=== PATIENT | female | born 1955 ===

== ENCOUNTER 2016-09-03 18:33 | Inpatient (IN) | payer MEDICAID ==
[2016-09-03] MEDS ORDERED: Metoprolol 1 mg/ml Inj IVP STA (19:34)
[2016-09-03 19:46] LABS: ADD MANUAL DIFF? NO
[2016-09-03 19:51] LABS: BASO # 0.06 K/mm3 (0.0-2.0); BASO % 0.6 % (0.0-3.0); EOS # 0.1 (0.0-0.7); EOS % 1.3 % (1.5-5.0); GRAN # 7.47 (1.4-6.5); GRAN % 76.4 % (50.0-68.0); HEMATOCRIT 36.3 % (36.0-48.0); LYMPH # 1.8 (1.2-3.4); LYMPH % 18.1 % (22.0-35.0); MEAN CORPUSCULAR HEMOGLOBIN 27.1 pg (25.0-35.0); MEAN CORPUSCULAR HGB CONC 32.2 g/dl (31.0-37.0); MEAN PLATELET VOLUME 11.2 fl (7.0-11.0); MONO # 0.4 (0.1-0.6); MONO % 3.6 % (1.0-6.0); PLATELET COUNT 262 10^3/uL (120.0-450.0); RED CELL DISTRIBUTION WIDTH 13.6 % (11.5-14.5); WHITE BLOOD COUNT 9.8 10^3/ul (4.5-11.0)
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
[2016-09-03 20:02] LABS: ALB/GLOB RATIO 1.2 (1.1-1.8); ALKALINE PHOSPHATASE 121 U/L (38-133); ALT/SGPT 16 U/L (7-56); AST/SGOT 25 U/L (15-39); BILIRUBIN,TOTAL 0.6 mg/dL (0.2-1.3); BLOOD UREA NITROGEN 21 mg/dL (7-21); CALCIUM 9.7 mg/dL (8.4-10.5); CARBON DIOXIDE 24 mmol/L (21-33); CHLORIDE 102 mmol/L (98-107); GFR AFRICAN-AMERICAN > 60; GLUCOSE,RANDOM 207 mg/dL (70-110); POTASSIUM 4.5 mmol/L (3.6-5.0); SODIUM 139 mmol/L (132-148); TOTAL PROTEIN 7.4 g/dL (5.8-8.3)
[2016-09-03 20:03] LABS: INR 0.98 (0.93-1.08); PARTIAL THROMBOPLASTIN TIME 26.1 Seconds (23.7-30.8)
[2016-09-03 20:14] LABS: TROPONIN I < 0.01 ng/mL
[2016-09-03 21:31] LABS: URINE APPEARANCE CLEAR (CLEAR); URINE BILIRUBIN NEGATIVE (NEGATIVE); URINE BLOOD SMALL (NEGATIVE); URINE COLOR YELLOW (YELLOW); URINE GLUCOSE (UA) NEGATIVE (NEGATIVE); URINE KETONE NEGATIVE (NEGATIVE); URINE LEUKOCYTE ESTERASE NEGATIVE Leu/uL (NEGATIVE); URINE PROTEIN 100 mg/dL (<30 mg/dL); URINE UROBILINOGEN 0.2 E.U./dL (<1 E.U./dL)
[2016-09-03 21:35] LABS: URINE AMORPHOUS SEDIMENT FEW; URINE BACTERIA MANY (NEG); URINE WBC 0 - 2 /hpf (0-6)
[2016-09-03] MEDS ORDERED: cefTRIAXone 1 gm 100 ML IV STA (21:51)
--- NOTE | 2016-09-03 22:15 | CT ---
EXAM: CT Head Without Intravenous Contrast. CLINICAL HISTORY: 61 years old, female; Pain; Headache; Headache not specified; Additional info: [place] x2 weeks TECHNIQUE: Axial computed tomography images of the head/brain without intravenous contrast. This CT exam was performed using one or more of the following dose reduction techniques: automated exposure control, adjustment of the mA and/or kV according to patient size, and/or use of iterative reconstruction technique. COMPARISON: CT - HEAD W/O (CODE STROKE) 08/08/2016 4:29:03 PM FINDINGS: Brain: No hemorrhage. No edema. Bilateral white matter changes. This is nonspecific and may include microangiopathic disease, small lacunae of indeterminate chronicity, chronic infarcts and/or encephalomalacia. Evidence of old lacunar infarcts, similar appearance to available prior study. Vascular calcification. Ventricles: No hydrocephalus. Bones: Skull is intact. Deformity of left lamina papyracea, likely from prior trauma. Sinuses: No acute sinusitis. Mastoid air cells: No mastoid effusion. IMPRESSION: No CT evidence of acute intracranial abnormality. Details as above. Correlate clinically. Followup as warranted.
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
[2016-09-04] MEDS ORDERED: Albuterol 0.083% Inhal Sol (2.5 mg/3 mL) UD IH PRN (01:34)
[2016-09-04] MEDS ORDERED: Albuterol-Ipratrop 3 mg / 0.5 (3 ml) UD IH PRN (02:21)
[2016-09-04 03:33] VITALS: BMI 32.9
[2016-09-04 06:49] LABS: ADD MANUAL DIFF? NO
[2016-09-04 07:13] LABS: BASO # 0.08 K/mm3 (0.0-2.0); BASO % 0.9 % (0.0-3.0); EOS # 0.4 (0.0-0.7); EOS % 3.9 % (1.5-5.0); GRAN # 5.85 (1.4-6.5); GRAN % 62.5 % (50.0-68.0); HEMATOCRIT 35.2 % (36.0-48.0); LYMPH # 2.6 (1.2-3.4); LYMPH % 27.5 % (22.0-35.0); MEAN CORPUSCULAR HGB CONC 32.1 g/dl (31.0-37.0); MEAN PLATELET VOLUME 9.9 fl (7.0-11.0); MONO # 0.5 (0.1-0.6); MONO % 5.2 % (1.0-6.0); PLATELET COUNT 297 10^3/uL (120.0-450.0); RED CELL DISTRIBUTION WIDTH 13.8 % (11.5-14.5); WHITE BLOOD COUNT 9.4 10^3/ul (4.5-11.0)
[2016-09-04] MEDS: Pantoprazole 40 mg EC Tab PO SCH (07:16)
[2016-09-04 07:26] LABS: TROPONIN I 0.02 ng/mL
[2016-09-04 07:28] LABS: ALB/GLOB RATIO 1.3 (1.1-1.8); ALKALINE PHOSPHATASE 108 U/L (38-133); ALT/SGPT 15 U/L (7-56); AST/SGOT 26 U/L (15-39); BILIRUBIN,TOTAL 0.5 mg/dL (0.2-1.3); BLOOD UREA NITROGEN 18 mg/dL (7-21); CALCIUM 9.4 mg/dL (8.4-10.5); CARBON DIOXIDE 27 mmol/L (21-33); CHLORIDE 104 mmol/L (98-107); CHOLESTEROL 160 mg/dL (130-200); GFR AFRICAN-AMERICAN > 60; GLUCOSE,RANDOM 173 mg/dL (70-110); POTASSIUM 4.4 mmol/L (3.6-5.0); SODIUM 141 mmol/L (132-148); TOTAL PROTEIN 6.8 g/dL (5.8-8.3)
[2016-09-04] MEDS: Insulin Lispro (humaLOG) LOW Coverage SC SCH ×4 (08:16→22:22)
[2016-09-04] MEDS: Insulin Lispro 1 UNITS/0.01 ML SC SCH ×3 (08:19→18:11)
--- NOTE | 2016-09-04 09:02 | CP.PCM.PN ---
<Yann Prakash - Last Filed: 09/04/16 21:36> Subjective - Date & Time of Evaluation Date of Evaluation: 09/04/16 Time of Evaluation: 07:35 - Subjective Subjective: 61 yo female with hx of a stroke presented to the ED. Per family, approximately 3 weeks ago pt had a stroke. She was released from rehab today, presented at home with unsteady gait, difficulty walking, not speaking and altered mental status. Today, patient is in NAD. A review of symtpoms was unobtainable due to pt's altered mental status. Objective - Vital Signs/Intake and Output Vital Signs (last 24 hours): Temp Pulse Resp BP Pulse Ox 97.8 F 93 H 20 183/92 H 98 09/04/16 02:20 09/04/16 06:00 09/04/16 02:20 09/04/16 02:20 09/04/16 01:50 Intake and Output: 09/04/16 09/04/16 06:59 18:59 Intake Total 0 Output Total 300 Balance -300 - Medications Medications: Current Medications Albuterol/Ipratropium (Duoneb 3 Mg/0.5 Mg (3 Ml) Ud) 3 ml IH [id number] PRN PRN Reason: Shortness of Breath Amitriptyline HCl (Elavil) 50 mg PO HS [facility] Amlodipine Besylate (Norvasc) 10 mg PO DAILY [facility] Aspirin (Ecotrin) 81 mg PO DAILY [facility] Atorvastatin Calcium (Lipitor) 40 mg PO DIN [facility] Enoxaparin Sodium (Lovenox) 40 mg SC DAILY [facility] PRN Reason: Protocol Gabapentin (Neurontin) 100 mg PO TID [facility] PRN Reason: Protocol Hydralazine HCl (Apresoline) 10 mg IVP Q6 PRN PRN Reason: Systolic Blood Pressure Last Admin: 09/04/16 01:33 Dose: 10 mg Ceftriaxone Sodium (Rocephin 1 Gram Ivpb) 100 mls @ 100 mls/hr IVPB DAILY [facility] PRN Reason: Protocol Insulin Detemir (Levemir) 34 unit SC HS [facility] Insulin Human Lispro (Humalog Low) 0 units SC ACHS [facility] PRN Reason: Protocol Last Admin: 09/04/16 08:16 Dose: 1 units Insulin Human Lispro (Humalog) 10 units SC AC [facility] Last Admin: 09/04/16 08:19 Dose: Not Given Lisinopril (Zestril) 20 mg PO DAILY [facility] Metoprolol Tartrate (Lopressor) 75 mg PO BID [facility] Ondansetron HCl (Zofran Odt) 4 mg PO Q8 PRN PRN Reason: Nausea/Vomiting Pantoprazole Sodium (Protonix Ec Tab) 40 mg PO 0630 [facility] Last Admin: 09/04/16 07:16 Dose: 40 mg Polyethylene Glycol (Miralax) 17 gm PO DAILY [facility] - Labs Labs: 09/04/16 06:15 09/04/16 06:15 PT 10.6 Seconds (9.9-11.8) 09/03/16 19:25 INR 0.98 (0.93-1.08) 09/03/16 19:25 APTT 26.1 Seconds (23.7-30.8) 09/03/16 19:25 - Constitutional Appears: Non-toxic, No Acute Distress - Head Exam Head Exam: ATRAUMATIC, NORMOCEPHALIC - Eye Exam Eye Exam: EOMI - ENT Exam ENT Exam: Mucous Membranes Moist - Neck Exam Neck Exam: Normal Inspection - Respiratory Exam Respiratory Exam: Clear to Ausculation Bilateral, NORMAL BREATHING PATTERN - Cardiovascular Exam Cardiovascular Exam: REGULAR RHYTHM, +S1, +S2. absent: JVD - GI/Abdominal Exam GI & Abdominal Exam: Soft, Normal Bowel Sounds. absent: Tenderness - Extremities Exam Extremities Exam: Full ROM. absent: Joint Swelling, Tenderness - Neurological Exam Neurological Exam: Alert, Awake, Oriented x3 - Psychiatric Exam Psychiatric exam: Normal Affect, Normal Mood - Skin Skin Exam: Dry, Intact, Normal Color, Warm Assessment and Plan - Assessment and Plan (Free Text) Assessment: This is a 60 y/o female with hx of poorly controlled IDDM, peripheral neuropathy , HTN, HLD, prior CVA with residual right LE weakness and a recent stroke 3 weeks ago, with unsteady gait, difficulty walking, not speaking and altered mental status. Plan: AMS likely HTN encephalopathy, unlikely TIA or stroke. Possible delirum precipitated by UTI - r/o Ischemic - trend cardiac enzyme Trops x3 negative - r/o Infectious- UTI - ceftriaxone - Iatrogenic -vno hypoglycemia or electrolyte imbalance HTN - uncontrolled, labile - Norvasc 10 daily - increased lopressor to 75mg BID - lisinopril 20 daily - Hydralazine q6 PRN - added Clonidine .1mg q6 prn - Systolic BP dropped from admission from 190's to 160's - will continue to adjust meds to optimize pressures IDDM poor control - Levemr 34 HS - 10 humalog TID - ISSS , peripheral neuropathy, a1c 12.6 (Jul 2016) - sugars 187 - 207 Diabetic neuropathy - neurontin 100 tid History of Falls - Deconditioning vs HTN encephalopathy vs orthostatic hypotention - orthostatic vitals ordered - physical therapy consult ordered - Hip x ray - no acute fracture or dislocation, see full report - CT face to r/o fracture - no acute nasal bone or maxillofacial fracture, see full report - CT Head -No CT evidence of acute intracranial abnormality, evidence of old lacunar infarcts, see full report Depression - psych consult - ordered - newly started on amitriptyline. HLD hx CVA w/ right LE residual deficit & aphasia; Last stroke 3 weeks ago - ASA, lipitor 40 Constipation - miralax Prophylaxis - protonix, lovenox, zofran <Rangasamy,Ajantha - Last Filed: 09/05/16 11:39> Objective - Vital Signs/Intake and Output Vital Signs (last 24 hours): Temp Pulse Resp BP Pulse Ox 98.2 F 67 18 143/62 98 09/05/16 06:00 09/05/16 09:12 09/05/16 06:00 09/05/16 06:00 09/05/16 06:00 Intake and Output: 09/05/16 09/05/16 06:59 18:59 Intake Total 480 Output Total 600 Balance -120 - Medications Medications: Current Medications Albuterol/Ipratropium (Duoneb 3 Mg/0.5 Mg (3 Ml) Ud) 3 ml IH [id number] PRN PRN Reason: Shortness of Breath Amitriptyline HCl (Elavil) 50 mg PO HS [facility] Last Admin: 09/04/16 21:28 Dose: 50 mg Amlodipine Besylate (Norvasc) 10 mg PO DAILY [facility] Last Admin: 09/05/16 10:29 Dose: 10 mg Aspirin (Ecotrin) 81 mg PO DAILY [facility] Last Admin: 09/05/16 10:28 Dose: 81 mg Atorvastatin Calcium (Lipitor) 40 mg PO DIN [facility] Last Admin: 09/04/16 18:15 Dose: 40 mg Clonidine HCl (Catapres) 0.1 mg PO Q6 PRN PRN Reason: Systolic Blood Pressure Last Admin: 09/04/16 21:29 Dose: 0.1 mg Enoxaparin Sodium (Lovenox) 40 mg SC DAILY [facility] PRN Reason: Protocol Last Admin: 09/05/16 10:29 Dose: 40 mg Gabapentin (Neurontin) 100 mg PO TID [facility] PRN Reason: Protocol Last Admin: 09/05/16 10:29 Dose: 100 mg Hydralazine HCl (Apresoline) 10 mg IVP Q6 PRN PRN Reason: Systolic Blood Pressure Last Admin: 09/04/16 01:33 Dose: 10 mg Ceftriaxone Sodium (Rocephin 1 Gram Ivpb) 100 mls @ 100 mls/hr IVPB DAILY [facility] PRN Reason: Protocol Last Admin: 09/05/16 10:29 Dose: 100 mls/hr Insulin Detemir (Levemir) 34 unit SC HS [facility] Last Admin: 09/04/16 22:23 Dose: Not Given Insulin Human Lispro (Humalog Low) 0 units SC ACHS [facility] PRN Reason: Protocol Last Admin: 09/05/16 07:50 Dose: 1 units Insulin Human Lispro (Humalog) 10 units SC AC [facility] Last Admin: 09/05/16 07:47 Dose: Not Given Lisinopril (Zestril) 20 mg PO DAILY [facility] Last Admin: 09/05/16 10:30 Dose: 20 mg Metoprolol Tartrate (Lopressor) 75 mg PO BID [facility] Last Admin: 09/05/16 10:28 Dose: 75 mg Ondansetron HCl (Zofran Odt) 4 mg PO Q8 PRN PRN Reason: Nausea/Vomiting Pantoprazole Sodium (Protonix Ec Tab) 40 mg PO 0630 [facility] Last Admin: 09/05/16 05:39 Dose: 40 mg Polyethylene Glycol (Miralax) 17 gm PO DAILY [facility] Last Admin: 09/05/16 10:29 Dose: 17 gm - Labs Labs: 09/05/16 06:10 09/05/16 06:10 PT 10.6 Seconds (9.9-11.8) 09/03/16 19:25 INR 0.98 (0.93-1.08) 09/03/16 19:25 APTT 26.1 Seconds (23.7-30.8) 09/03/16 19:25 Assessment and Plan - Assessment and Plan (Free Text) Assessment: Attending note; Patient seen and examined with resident in room 263. This is a 60 y/o female with the PMH of poorly controlled IDDM, peripheral neuropathy, HTN, HLD, prior CVA with residual right LE weakness is admitted with unsteady gait, difficulty walking, not speaking and altered mental status. The patient was discharged from [facility]. When patient went home she became unsteady/stopped talking and had a fall as per family. Currently patient is alert, awake. Communicating fine. Flat affect. Tolerating diet. Uncontrolled hypertension; patient said she did not take any medication at home. Started on medications. Blood pressure is stable. Diabetes; continue Levemir. Possible depression; psychiatric evaluation requested. Continue Elavil. PT evaluation requested. Upon discharge patient will follow-up with PMD Dr. Hernandez. Attending/Attestation - Attestation I have personally seen and examined this patient.: Yes I have fully participated in the care of the patient.: Yes I have reviewed all pertinent clinical information, including history, physical exam and plan: Yes
--- NOTE | 2016-09-04 09:29 | RAD ---
HISTORY: Shortness of breath COMPARISON: No prior. FINDINGS: LUNGS: The lungs are well inflated and clear. PLEURA: No significant pleural effusion identified, no pneumothorax apparent. CARDIOVASCULAR: Normal. OSSEOUS STRUCTURES: No significant abnormalities. VISUALIZED UPPER ABDOMEN: Normal. OTHER FINDINGS: None. IMPRESSION: No active pulmonary disease.
[2016-09-04 09:37] LABS: TROPONIN I 0.02 ng/mL
--- NOTE | 2016-09-04 10:40 | CT ---
PROCEDURE: CT MAXILLOFACIAL BONES WITHOUT CONTRAST HISTORY: fall, nose bruise COMPARISON: None TECHNIQUE: Contiguous axial CT images of the maxillofacial bones were obtained. Coronal and sagittal reformats were generated. Radiation dose: Total exam DLP = 711.63 mGy-cm. FINDINGS: NASAL BONES: There is no acute fracture. The nasal soft tissues are normal. ORBITS: There is an old fracture deformity in the left lamina papyracea. No acute fracture. PARANASAL SINUSES/ MASTOIDS: There is a small retention cyst/ polyp in the left maxillary sinus. The remaining included paranasal sinuses are predominantly clear. There are bilateral middle turbinate damaris bullosa and mild deviation of nasal septum to right. MAXILLA: No acute maxillofacial fracture. MANDIBLE/ TEMPOROMANDIBULAR JOINTS: No acute fracture. Normal joints. SKULL BASE: Within normal limits. TEMPORAL BONES: Middle ears and mastoid grossly unremarkable. OTHER FINDINGS: None. IMPRESSION: 1. No acute nasal bone or maxillofacial fracture. 2. Old fracture deformity in the left lamina papyracea.
[2016-09-04] MEDS: POLYETHYLENE GLYCOL 3350 17 GM/Dose PACKET PO SCH (11:33)
[2016-09-04] MEDS: Enoxaparin 40 mg Syringe SC SCH (11:33)
[2016-09-04] MEDS: cefTRIAXone 1 gm 100 ML IVPB SCH (11:33)
--- NOTE | 2016-09-04 12:34 | RAD ---
PROCEDURE: Radiographs of the pelvis. HISTORY: falls COMPARISON: None. FINDINGS: BONES: The pelvic ring is intact. There is no acute fracture or bone destruction. JOINTS: There is moderate right and mild left degenerative osteoarthrosis with reduced joint spaces and acetabular spurring. There is moderate osteitis pubis. There is mild degenerative osteoarthrosis in the sacroiliac joints. OTHER FINDINGS: None. IMPRESSION: No acute fracture or dislocation. Moderate right and mild left degenerative osteoarthrosis in the hip joints. Moderate osteitis pubis.
--- NOTE | 2016-09-04 15:00 | CARD ---
APPROVED REPORT EKG Measurement Heart [id number] <Conclusion> Sinus rhythm with 1st degree AV block Otherwise normal ECG
--- NOTE | 2016-09-04 20:12 | CP.PCM.PN ---
Subjective - Date & Time of Evaluation Date of Evaluation: 09/04/16 Time of Evaluation: 20:12 - Subjective Subjective: # 20 angiocath was inserted in left hand dorsum Dx:Poor venous access. Objective - Vital Signs/Intake and Output Vital Signs (last 24 hours): Temp Pulse Resp BP Pulse Ox 97.3 F L 78 19 157/93 H 98 09/04/16 12:00 09/04/16 18:00 09/04/16 12:00 09/04/16 12:00 09/04/16 01:50 - Medications Medications: Current Medications Albuterol/Ipratropium (Duoneb 3 Mg/0.5 Mg (3 Ml) Ud) 3 ml IH [id number] PRN PRN Reason: Shortness of Breath Amitriptyline HCl (Elavil) 50 mg PO HS [facility] Amlodipine Besylate (Norvasc) 10 mg PO DAILY [facility] Last Admin: 09/04/16 11:32 Dose: 10 mg Aspirin (Ecotrin) 81 mg PO DAILY [facility] Last Admin: 09/04/16 11:33 Dose: 81 mg Atorvastatin Calcium (Lipitor) 40 mg PO DIN [facility] Last Admin: 09/04/16 18:15 Dose: 40 mg Clonidine HCl (Catapres) 0.1 mg PO Q6 PRN PRN Reason: Systolic Blood Pressure Enoxaparin Sodium (Lovenox) 40 mg SC DAILY [facility] PRN Reason: Protocol Last Admin: 09/04/16 11:33 Dose: 40 mg Gabapentin (Neurontin) 100 mg PO TID [facility] PRN Reason: Protocol Last Admin: 09/04/16 18:16 Dose: 100 mg Hydralazine HCl (Apresoline) 10 mg IVP Q6 PRN PRN Reason: Systolic Blood Pressure Last Admin: 09/04/16 01:33 Dose: 10 mg Ceftriaxone Sodium (Rocephin 1 Gram Ivpb) 100 mls @ 100 mls/hr IVPB DAILY [facility] PRN Reason: Protocol Last Admin: 09/04/16 11:33 Dose: 100 mls/hr Insulin Detemir (Levemir) 34 unit SC HS [facility] Insulin Human Lispro (Humalog Low) 0 units SC ACHS [facility] PRN Reason: Protocol Last Admin: 09/04/16 18:15 Dose: 1 units Insulin Human Lispro (Humalog) 10 units SC AC [facility] Last Admin: 09/04/16 18:11 Dose: Not Given Lisinopril (Zestril) 20 mg PO DAILY [facility] Last Admin: 09/04/16 11:31 Dose: 20 mg Metoprolol Tartrate (Lopressor) 75 mg PO BID [facility] Last Admin: 09/04/16 18:15 Dose: 75 mg Ondansetron HCl (Zofran Odt) 4 mg PO Q8 PRN PRN Reason: Nausea/Vomiting Pantoprazole Sodium (Protonix Ec Tab) 40 mg PO 0630 [facility] Last Admin: 09/04/16 07:16 Dose: 40 mg Polyethylene Glycol (Miralax) 17 gm PO DAILY [facility] Last Admin: 09/04/16 11:33 Dose: 17 gm - Labs Labs: PT 10.6 Seconds (9.9-11.8) 09/03/16 19:25 INR 0.98 (0.93-1.08) 09/03/16 19:25 APTT 26.1 Seconds (23.7-30.8) 09/03/16 19:25
[2016-09-04] MEDS: Insulin Detemir 100 units/ml Vial (Levemir) SC SCH (22:23)
[2016-09-05] MEDS: Pantoprazole 40 mg EC Tab PO SCH (05:39)
[2016-09-05 06:38] LABS: ADD MANUAL DIFF? NO
[2016-09-05 06:59] LABS: BASO # 0.07 K/mm3 (0.0-2.0); BASO % 0.8 % (0.0-3.0); EOS # 0.4 (0.0-0.7); EOS % 4.4 % (1.5-5.0); GRAN # 5.46 (1.4-6.5); GRAN % 60.2 % (50.0-68.0); HEMATOCRIT 35.5 % (36.0-48.0); LYMPH # 2.6 (1.2-3.4); LYMPH % 28.5 % (22.0-35.0); MEAN CELL VOLUME 84.7 fL (80.0-105.0); MEAN CORPUSCULAR HGB CONC 31.8 g/dl (31.0-37.0); MEAN PLATELET VOLUME 10.4 fl (7.0-11.0); MONO # 0.6 (0.1-0.6); MONO % 6.1 % (1.0-6.0); PLATELET COUNT 284 10^3/uL (120.0-450.0); RED CELL DISTRIBUTION WIDTH 13.9 % (11.5-14.5); WHITE BLOOD COUNT 9.1 10^3/ul (4.5-11.0)
[2016-09-05 07:04] LABS: ALB/GLOB RATIO 1.2 (1.1-1.8); BILIRUBIN,TOTAL 0.6 mg/dL (0.2-1.3); CALCIUM 9.2 mg/dL (8.4-10.5); POTASSIUM 4.7 mmol/L (3.6-5.0); TOTAL PROTEIN 6.8 g/dL (5.8-8.3)
[2016-09-05] MEDS: Insulin Lispro 1 UNITS/0.01 ML SC SCH ×3 (07:47→18:42)
[2016-09-05] MEDS: Insulin Lispro (humaLOG) LOW Coverage SC SCH ×4 (07:50→22:29)
[2016-09-05] MEDS: cefTRIAXone 1 gm 100 ML IVPB SCH (10:29)
[2016-09-05] MEDS: Enoxaparin 40 mg Syringe SC SCH (10:29)
[2016-09-05] MEDS: POLYETHYLENE GLYCOL 3350 17 GM/Dose PACKET PO SCH (10:29)
--- NOTE | 2016-09-05 16:06 | CP.PCM.PN ---
<Jordan Griffin - Last Filed: 09/05/16 17:28> Subjective - Date & Time of Evaluation Date of Evaluation: 09/05/16 Time of Evaluation: 08:40 - Subjective Subjective: Medicine Progress note. Dr. Bassett Pt seen and examined at bedside. No acute events overnight. Patient states that she feels okay today and feels better than yesterday. No new complaints. Objective - Vital Signs/Intake and Output Vital Signs (last 24 hours): Temp Pulse Resp BP Pulse Ox 98.1 F 69 20 157/76 H 98 09/05/16 12:00 09/05/16 12:00 09/05/16 12:00 09/05/16 12:00 09/05/16 06:00 Intake and Output: 09/05/16 09/05/16 06:59 18:59 Intake Total 480 Output Total 600 Balance -120 - Medications Medications: Current Medications Albuterol/Ipratropium (Duoneb 3 Mg/0.5 Mg (3 Ml) Ud) 3 ml IH [id number] PRN PRN Reason: Shortness of Breath Amitriptyline HCl (Elavil) 50 mg PO HS [facility] Last Admin: 09/04/16 21:28 Dose: 50 mg Amlodipine Besylate (Norvasc) 10 mg PO DAILY [facility] Last Admin: 09/05/16 10:29 Dose: 10 mg Aspirin (Ecotrin) 81 mg PO DAILY [facility] Last Admin: 09/05/16 10:28 Dose: 81 mg Atorvastatin Calcium (Lipitor) 40 mg PO DIN [facility] Last Admin: 09/04/16 18:15 Dose: 40 mg Clonidine HCl (Catapres) 0.1 mg PO Q6 PRN PRN Reason: Systolic Blood Pressure Last Admin: 09/04/16 21:29 Dose: 0.1 mg Enoxaparin Sodium (Lovenox) 40 mg SC DAILY [facility] PRN Reason: Protocol Last Admin: 09/05/16 10:29 Dose: 40 mg Gabapentin (Neurontin) 100 mg PO TID [facility] PRN Reason: Protocol Last Admin: 09/05/16 13:57 Dose: 100 mg Hydralazine HCl (Apresoline) 10 mg IVP Q6 PRN PRN Reason: Systolic Blood Pressure Last Admin: 09/04/16 01:33 Dose: 10 mg Ceftriaxone Sodium (Rocephin 1 Gram Ivpb) 100 mls @ 100 mls/hr IVPB DAILY [facility] PRN Reason: Protocol Last Admin: 09/05/16 10:29 Dose: 100 mls/hr Insulin Detemir (Levemir) 34 unit SC HS [facility] Last Admin: 09/04/16 22:23 Dose: Not Given Insulin Human Lispro (Humalog Low) 0 units SC ACHS [facility] PRN Reason: Protocol Last Admin: 09/05/16 12:41 Dose: 2 units Insulin Human Lispro (Humalog) 10 units SC AC [facility] Last Admin: 09/05/16 12:36 Dose: Not Given Lisinopril (Zestril) 20 mg PO DAILY [facility] Last Admin: 09/05/16 10:30 Dose: 20 mg Lorazepam (Ativan) 0.5 mg PO TID PRN; Protocol PRN Reason: Anxiety Metoprolol Tartrate (Lopressor) 75 mg PO BID [facility] Last Admin: 09/05/16 10:28 Dose: 75 mg Ondansetron HCl (Zofran Odt) 4 mg PO Q8 PRN PRN Reason: Nausea/Vomiting Pantoprazole Sodium (Protonix Ec Tab) 40 mg PO 0630 [facility] Last Admin: 09/05/16 05:39 Dose: 40 mg Polyethylene Glycol (Miralax) 17 gm PO DAILY [facility] Last Admin: 09/05/16 10:29 Dose: 17 gm - Labs Labs: 09/05/16 06:10 09/05/16 06:10 PT 10.6 Seconds (9.9-11.8) 09/03/16 19:25 INR 0.98 (0.93-1.08) 09/03/16 19:25 APTT 26.1 Seconds (23.7-30.8) 09/03/16 19:25 - Constitutional Appears: Well, No Acute Distress - Head Exam Head Exam: ATRAUMATIC, NORMAL INSPECTION, NORMOCEPHALIC - Eye Exam Eye Exam: EOMI, Normal appearance, PERRL. absent: Scleral icterus Pupil Exam: PERRL - ENT Exam ENT Exam: Mucous Membranes Moist - Respiratory Exam Respiratory Exam: Clear to Ausculation Bilateral, NORMAL BREATHING PATTERN. absent: Accessory Muscle Use, Decreased Breath Sounds, Wheezes, Respiratory Distress - Cardiovascular Exam Cardiovascular Exam: RRR, +S1, +S2. absent: JVD - GI/Abdominal Exam GI & Abdominal Exam: Soft, Normal Bowel Sounds - Extremities Exam Extremities Exam: Normal Inspection. absent: Pedal Edema - Back Exam Back Exam: NORMAL INSPECTION - Neurological Exam Neurological Exam: Alert, Awake - Skin Skin Exam: Dry, Intact, Normal Color, Warm Assessment and Plan - Assessment and Plan (Free Text) Assessment: 61yo F with PMHx of Poorly controlled DM, HTN, HLD, prior CVA with residual RLE weakness and recent CVA 3 weeks ago. Here for evaluation of AMS, behavioral changes and unsteady gait. 1. AMS likely secondary to HTN encephalopathy. VSS now. Low suspicion for TIA/CVA Possible delirium Ativan 1mg PO prn 2. Uncontrolled HTN Continue home meds: Metoprolol 75 bid, Norvasc 10 Daily, Lisinopril 20mg PO Daily Hydralazine prn Clonidine prn BP improved now 3. Hx of DM Accuchecks Continue Levemir. Humalog 10U SC AC Insulin SS 4. Depression continue Elavil Psych consult, Dr. Luke, appreciate recs 5. Unsteady Gait PT eval and treat. PT recommends [facility] vs TCU 6. PPx Lovenox Protonix Discussed case with Dr. Danyelle Griffin PGY1 <Pardeep Bassett - Last Filed: 09/05/16 18:15> Objective - Vital Signs/Intake and Output Vital Signs (last 24 hours): Temp Pulse Resp BP Pulse Ox 98.1 F 69 20 157/76 H 98 09/05/16 12:00 09/05/16 12:00 09/05/16 12:00 09/05/16 12:00 09/05/16 06:00 Intake and Output: 09/05/16 09/05/16 06:59 18:59 Intake Total 480 Output Total 600 Balance -120 - Medications Medications: Current Medications Albuterol/Ipratropium (Duoneb 3 Mg/0.5 Mg (3 Ml) Ud) 3 ml IH [id number] PRN PRN Reason: Shortness of Breath Amitriptyline HCl (Elavil) 50 mg PO HS [facility] Last Admin: 09/04/16 21:28 Dose: 50 mg Amlodipine Besylate (Norvasc) 10 mg PO DAILY [facility] Last Admin: 09/05/16 10:29 Dose: 10 mg Aspirin (Ecotrin) 81 mg PO DAILY [facility] Last Admin: 09/05/16 10:28 Dose: 81 mg Atorvastatin Calcium (Lipitor) 40 mg PO DIN [facility] Last Admin: 09/04/16 18:15 Dose: 40 mg Clonidine HCl (Catapres) 0.1 mg PO Q6 PRN PRN Reason: Systolic Blood Pressure Last Admin: 09/04/16 21:29 Dose: 0.1 mg Enoxaparin Sodium (Lovenox) 40 mg SC DAILY [facility] PRN Reason: Protocol Last Admin: 09/05/16 10:29 Dose: 40 mg Gabapentin (Neurontin) 100 mg PO TID [facility] PRN Reason: Protocol Last Admin: 09/05/16 13:57 Dose: 100 mg Hydralazine HCl (Apresoline) 10 mg IVP Q6 PRN PRN Reason: Systolic Blood Pressure Last Admin: 09/04/16 01:33 Dose: 10 mg Ceftriaxone Sodium (Rocephin 1 Gram Ivpb) 100 mls @ 100 mls/hr IVPB DAILY [facility] PRN Reason: Protocol Last Admin: 09/05/16 10:29 Dose: 100 mls/hr Insulin Detemir (Levemir) 34 unit SC HS [facility] Last Admin: 09/04/16 22:23 Dose: Not Given Insulin Human Lispro (Humalog Low) 0 units SC ACHS [facility] PRN Reason: Protocol Last Admin: 09/05/16 12:41 Dose: 2 units Insulin Human Lispro (Humalog) 10 units SC AC [facility] Last Admin: 09/05/16 12:36 Dose: Not Given Lisinopril (Zestril) 20 mg PO DAILY [facility] Last Admin: 09/05/16 10:30 Dose: 20 mg Lorazepam (Ativan) 0.5 mg PO TID PRN; Protocol PRN Reason: Anxiety Metoprolol Tartrate (Lopressor) 75 mg PO BID [facility] Last Admin: 09/05/16 10:28 Dose: 75 mg Ondansetron HCl (Zofran Odt) 4 mg PO Q8 PRN PRN Reason: Nausea/Vomiting Pantoprazole Sodium (Protonix Ec Tab) 40 mg PO 0630 [facility] Last Admin: 09/05/16 05:39 Dose: 40 mg Polyethylene Glycol (Miralax) 17 gm PO DAILY [facility] Last Admin: 09/05/16 10:29 Dose: 17 gm - Labs Labs: 09/05/16 06:10 09/05/16 06:10 PT 10.6 Seconds (9.9-11.8) 09/03/16 19:25 INR 0.98 (0.93-1.08) 09/03/16 19:25 APTT 26.1 Seconds (23.7-30.8) 09/03/16 19:25 Assessment and Plan - Assessment and Plan (Free Text) Assessment: Attending note; Patient seen and examined with resident in room 263. This is a 60 y/o female with the PMH of poorly controlled IDDM, peripheral neuropathy, HTN, HLD, prior CVA with residual right LE weakness is admitted with unsteady gait, difficulty walking, not speaking and altered mental status. The patient was discharged from [facility]. When patient went home she became unsteady/stopped talking and had a fall as per family. Currently patient is alert, awake. Communicating fine. Flat affect. Tolerating diet. Uncontrolled hypertension; patient said she did not take any medication at home. Started on medications. Blood pressure is stable. Diabetes; continue Levemir. Possible depression; psychiatric evaluation requested. Continue Elavil. PT evaluation appreciated. TCU versus scar recommended.Follow-up with casework supervisor. Upon discharge patient will follow-up with PMD Dr. Hernandez. Attending/Attestation - Attestation I have personally seen and examined this patient.: Yes I have fully participated in the care of the patient.: Yes I have reviewed all pertinent clinical information, including history, physical exam and plan: Yes
[2016-09-05] MEDS: Insulin Detemir 100 units/ml Vial (Levemir) SC SCH (22:29)
[2016-09-06] MEDS: Pantoprazole 40 mg EC Tab PO SCH ×2 (05:55→05:57)
[2016-09-06 07:56] LABS: ADD MANUAL DIFF? NO
[2016-09-06 07:58] LABS: BASO # 0.06 K/mm3 (0.0-2.0); BASO % 0.7 % (0.0-3.0); EOS # 0.6 (0.0-0.7); GRAN # 5.44 (1.4-6.5); GRAN % 59.1 % (50.0-68.0); HEMATOCRIT 35.7 % (36.0-48.0); LYMPH # 2.7 (1.2-3.4); LYMPH % 29.5 % (22.0-35.0); MEAN CELL VOLUME 83.8 fL (80.0-105.0); MEAN CORPUSCULAR HEMOGLOBIN 27.5 pg (25.0-35.0); MEAN CORPUSCULAR HGB CONC 32.8 g/dl (31.0-37.0); MONO # 0.4 (0.1-0.6); MONO % 4.7 % (1.0-6.0); PLATELET COUNT 279 10^3/uL (120.0-450.0); RED CELL DISTRIBUTION WIDTH 13.9 % (11.5-14.5); WHITE BLOOD COUNT 9.2 10^3/ul (4.5-11.0)
[2016-09-06] MEDS: Insulin Lispro (humaLOG) LOW Coverage SC SCH ×4 (08:36→22:13)
[2016-09-06 08:38] LABS: ALB/GLOB RATIO 1.2 (1.1-1.8); ALKALINE PHOSPHATASE 103 U/L (38-133); ALT/SGPT 20 U/L (7-56); AST/SGOT 25 U/L (15-39); BILIRUBIN,TOTAL 0.4 mg/dL (0.2-1.3); BLOOD UREA NITROGEN 29 mg/dL (7-21); CALCIUM 9.1 mg/dL (8.4-10.5); CARBON DIOXIDE 26 mmol/L (21-33); CHLORIDE 105 mmol/L (95-110); GFR AFRICAN-AMERICAN > 60; GLUCOSE,RANDOM 171 mg/dL (70-110); POTASSIUM 4.4 mmol/L (3.6-5.0); SODIUM 141 mmol/L (132-148); TOTAL PROTEIN 6.9 g/dL (5.8-8.3)
--- NOTE | 2016-09-06 08:38 | CON ---
DATE: 09/05/2016 The patient is a 61-year-old female with a history of a recent stroke approximately 3 weeks ago who w as recently released from rehab who was admitted to the medical floor for new symptoms of unsteady ga it, difficulty walking, not speaking, and altered mental status. Records indicate that family report ed that since the stroke 3 weeks prior, the patient has had slurred speech. Psychiatry was called to evaluate for her altered mental status. I met with the patient at bedside, and she is calm, cooperative, and oriented to circumstances, locat ion, month, and year. The patient reports having a lot of depression. She is feeling hopelessness a nd helplessness mostly due to her medical situation, and she also reports having wishes and pas sive suicidal thoughts, though does deny having any active suicidal thoughts. Her affect is notably constricted. Focus is fair. She does slur some of her speech. However, when asked to repeat hersel f, often can do this coherently. I asked her about her inability to respond in the past, as her HPI ____ did not appear to understand or recall that this was part of her presentation when she arrived t o the Emergency Room. The patient is ____ that she was taking amitriptyline, however, does report that she has taken this in the past many years ago when she was attending a clinic in [place]. She indicated this was a beneficial medication for her at the time for her depression. She denies any hallucinations. She is generally coherent and consistent with responses, and appears fairly reliable in this respect. She does not appear to be responsive to internal stimuli, and delusions were not elicited during my meeti ng today. She appears tired, but again, consistent and fairly reliable. I asked the patient if she would like some psychiatric management, specifically, inpatient management, and the patient readily a nd ____ agrees to this type of intervention. RELEVANT PSYCHIATRIC MEDICATIONS: Basically include Elavil 50 mg p.o. at bedtime. VITAL SIGNS: Reviewed, and at 6:00 a.m. today, they were 98.2, 56, 143/62, and 18. LABORATORY DATA: The patient's labs were also reviewed, and CBC was generally within normal limits e xcept for hemoglobin and hematocrit of 11.3 and 35.5. Chemistry panel showed a BUN elevated at 25, r andom glucose of 183. Otherwise, chemistry profile, as well as LFTs, was within normal limits. UDS was negative on 09/03. IMPRESSION: Major depressive disorder, moderate to severe, anxiety disorder, adjustment disorder wit h depression and anxiety, as well as marijuana abuse. PSYCHIATRIC HISTORY: The patient reports a history of depression and has been treated with Elavil in the past when she was in [place]. This was over 20 years ago. The patient also reports a suici de attempt many years ago, also over 20 years ago. The patient is not currently in outpatient treatm ent. She denies any inpatient hospitalization. SOCIAL HISTORY: The patient was born and raised in [place]. She is . She has 2 grown d aughters. She lives with one of her granddaughters. She used to be a cook, and she denies any legal issues, though she does have issues with drug ____ alcohol. Does have a history of recreational mar ijuana abuse. RECOMMENDATIONS: 1. We will continue with Elavil 50 mg at bedtime to help with the patient's depression. The patient reports improvement with this medication in the past, and prior records indicate that this medicatio n was recently started for the patient, and she is currently tolerating medication. 2. Psychiatry will continue to follow up with the patient on the unit to monitor her mental status, her symptoms, tolerance to medication, and when the patient is medically cleared, the patient may be voluntarily transferred to the psychiatric unit provided there are beds available. I spoke with the patient twice today, and she consistently reported her intention to participate in this type of eder tment for her symptoms at this time. Zach Luke MD cc: [id number] TT: 09/05/2016 10:40:45 Confirmation # [id number] Dictation # [id number] rebecca
[2016-09-06] MEDS: Insulin Lispro 1 UNITS/0.01 ML SC SCH ×3 (08:40→17:30)
[2016-09-06] MEDS: Enoxaparin 40 mg Syringe SC SCH (10:23)
[2016-09-06] MEDS: POLYETHYLENE GLYCOL 3350 17 GM/Dose PACKET PO SCH (10:23)
[2016-09-06] MEDS: cefTRIAXone 1 gm 100 ML IVPB SCH (10:24)
--- NOTE | 2016-09-06 13:50 | RAD ---
PROCEDURE: Right Ankle Radiographs. HISTORY: right ankle pain COMPARISON: None FINDINGS: BONES: No acute fracture. There is eccentric sclerosis of the distal fibular diaphysis measuring approximately 18 mm in length. . Uncertain significance. No associated endosteal scalloping, bony expansion or evidence of associated soft tissue mass. Nonaggressive lesion. JOINTS: Normal. No osteoarthritis. Ankle mortise maintained. Talar dome intact SOFT TISSUES: Normal. OTHER FINDINGS: None. IMPRESSION: No acute fracture. Nonspecific 18 mm eccentric sclerotic lesion of the distal fibular diaphysis with a nonaggressive appearance. Possible old infarct.
--- NOTE | 2016-09-06 14:59 | CP.PCM.PCO ---
Physician Communication Note - Physician Communication Note Physician Communication Note: no agitation, pt was seen by over the weekend, will f/u tomorrow
--- NOTE | 2016-09-06 15:32 | CP.PCM.PN ---
<Yann Prakash - Last Filed: 09/06/16 18:22> Subjective - Date & Time of Evaluation Date of Evaluation: 09/06/16 Time of Evaluation: 09:10 - Subjective Subjective: 61 yo female with hx of a stroke presented to the ED. Per family, approximately 3 weeks ago pt had a stroke. She was released from rehab and presented at home with unsteady gait, difficulty walking, not speaking and altered mental status. She was then brought to the hospital. Today, patient is awake and will nod her head yes/no and will whisper answers, but very quietly. She did not have any complaints other than right ankle pain that has been there for months. She denied headache, chest pain, difficulty breathing, or abdominal pain. Objective - Vital Signs/Intake and Output Vital Signs (last 24 hours): Temp Pulse Resp BP Pulse Ox 98.3 F 80 18 150/80 99 09/06/16 07:30 09/06/16 10:23 09/06/16 07:30 09/06/16 10:23 09/06/16 07:30 Intake and Output: 09/06/16 09/06/16 06:59 18:59 Intake Total 180 360 Balance 180 360 - Medications Medications: Current Medications Albuterol/Ipratropium (Duoneb 3 Mg/0.5 Mg (3 Ml) Ud) 3 ml IH [id number] PRN PRN Reason: Shortness of Breath Amitriptyline HCl (Elavil) 50 mg PO HS [facility] Last Admin: 09/05/16 23:00 Dose: 50 mg Amlodipine Besylate (Norvasc) 10 mg PO DAILY [facility] Last Admin: 09/06/16 10:22 Dose: 10 mg Aspirin (Ecotrin) 81 mg PO DAILY [facility] Last Admin: 09/06/16 10:22 Dose: 81 mg Atorvastatin Calcium (Lipitor) 40 mg PO DIN [facility] Last Admin: 09/05/16 18:40 Dose: 40 mg Clonidine HCl (Catapres) 0.1 mg PO Q6 PRN PRN Reason: Systolic Blood Pressure Last Admin: 09/06/16 06:40 Dose: 0.1 mg Enoxaparin Sodium (Lovenox) 40 mg SC DAILY [facility] PRN Reason: Protocol Last Admin: 09/06/16 10:23 Dose: 40 mg Gabapentin (Neurontin) 100 mg PO TID [facility] PRN Reason: Protocol Last Admin: 09/06/16 10:23 Dose: 100 mg Hydralazine HCl (Apresoline) 10 mg IVP Q6 PRN PRN Reason: Systolic Blood Pressure Last Admin: 09/04/16 01:33 Dose: 10 mg Ceftriaxone Sodium (Rocephin 1 Gram Ivpb) 100 mls @ 100 mls/hr IVPB DAILY [facility] PRN Reason: Protocol Last Admin: 09/06/16 10:24 Dose: 100 mls/hr Insulin Detemir (Levemir) 34 unit SC HS [facility] Last Admin: 09/05/16 22:29 Dose: Not Given Insulin Human Lispro (Humalog Low) 0 units SC ACHS [facility] PRN Reason: Protocol Last Admin: 09/06/16 13:33 Dose: Not Given Insulin Human Lispro (Humalog) 10 units SC AC [facility] Last Admin: 09/06/16 12:00 Dose: Not Given Lisinopril (Zestril) 40 mg PO DAILY [facility] Lorazepam (Ativan) 0.5 mg PO TID PRN; Protocol PRN Reason: Anxiety Metoprolol Tartrate (Lopressor) 75 mg PO BID [facility] Last Admin: 09/06/16 10:22 Dose: 75 mg Ondansetron HCl (Zofran Odt) 4 mg PO Q8 PRN PRN Reason: Nausea/Vomiting Pantoprazole Sodium (Protonix Ec Tab) 40 mg PO 0630 [facility] Last Admin: 09/06/16 05:57 Dose: Not Given Polyethylene Glycol (Miralax) 17 gm PO DAILY [facility] Last Admin: 09/06/16 10:23 Dose: 17 gm - Labs Labs: 09/06/16 07:30 09/06/16 07:30 PT 10.6 Seconds (9.9-11.8) 09/03/16 19:25 INR 0.98 (0.93-1.08) 09/03/16 19:25 APTT 26.1 Seconds (23.7-30.8) 09/03/16 19:25 - Constitutional Appears: No Acute Distress - Head Exam Head Exam: ATRAUMATIC, NORMOCEPHALIC - Eye Exam Eye Exam: EOMI - ENT Exam ENT Exam: Mucous Membranes Moist - Neck Exam Neck Exam: Full ROM, Normal Inspection - Respiratory Exam Respiratory Exam: Clear to Ausculation Bilateral, NORMAL BREATHING PATTERN - Cardiovascular Exam Cardiovascular Exam: REGULAR RHYTHM, RRR, +S1, +S2 - GI/Abdominal Exam GI & Abdominal Exam: Soft, Normal Bowel Sounds. absent: Tenderness - Extremities Exam Extremities Exam: Full ROM. absent: Pedal Edema - Back Exam Back Exam: NORMAL INSPECTION. absent: CVA tenderness (L), CVA tenderness (R), paraspinal tenderness - Neurological Exam Neurological Exam: Awake - Psychiatric Exam Psychiatric exam: Flat Affect Assessment and Plan - Assessment and Plan (Free Text) Assessment: 61yo F with PMHx of Poorly controlled DM, HTN, HLD, prior CVA with residual RLE weakness and recent change in mental status 3 weeks ago. Her last recorded stroke was 3 months ago. Here for evaluation of AMS, behavioral changes and unsteady gait. Plan: AMS likely HTN encephalopathy, unlikely TIA or stroke. Possible delirum precipitated by UTI - r/o Ischemic - trend cardiac enzyme Trops x3 negative - r/o Infectious- UTI - ceftriaxone - Iatrogenic -vno hypoglycemia or electrolyte imbalance - Low suspicion for TIA/CVA - Possible delirium - Ativan 1mg PO prn - Neuro consult - Dr. Akhil Figueroa, recs appreciated HTN - uncontrolled - Norvasc 10 daily - increased lopressor to 75mg BID - increased lisinopril to 40 daily - Hydralazine q6 PRN - added Clonidine .1mg q6 prn - Systolic BP in the 150's to 170's - will continue to adjust meds to optimize pressures IDDM poor control - Levemr 34 HS - 10 humalog TID - ISSS , - peripheral neuropathy, a1c 12.6 (Jul 2016) - sugars 187 - 207 Diabetic neuropathy - neurontin 100 tid History of Falls - Deconditioning vs HTN encephalopathy vs orthostatic hypotention - orthostatic vitals ordered - physical therapy consult ordered -PT recommends [facility] vs TCU - Hip x ray - no acute fracture or dislocation, see full report - CT face to r/o fracture - no acute nasal bone or maxillofacial fracture, see full report - CT Head -No CT evidence of acute intracranial abnormality, evidence of old lacunar infarcts, see full report Depression Psych consult, Dr. Luke, appreciate recs -continue Elavil Psych consult, Dr. Tanner, appreciate recs HLD hx CVA w/ right LE residual deficit & aphasia; per family 3 weeks ago - ASA, lipitor 40 Right ankle pain Xray 3 view right -no acute fracture, please see full report Constipation - miralax Prophylaxis - protonix, lovenox, zofran <Brunilda Jose B - Last Filed: 09/07/16 16:38> Objective - Vital Signs/Intake and Output Vital Signs (last 24 hours): Temp Pulse Resp BP Pulse Ox 98.7 F 80 20 160/80 H 99 09/07/16 07:30 09/07/16 11:12 09/07/16 07:30 09/07/16 11:12 09/07/16 07:30 Intake and Output: 09/07/16 09/07/16 06:59 18:59 Intake Total 660 360 Output Total 3 Balance 657 360 - Medications Medications: Current Medications Acetaminophen (Tylenol 325mg Tab) 650 mg PO Q4H PRN PRN Reason: Headache Last Admin: 09/06/16 22:40 Dose: 650 mg Albuterol/Ipratropium (Duoneb 3 Mg/0.5 Mg (3 Ml) Ud) 3 ml IH [id number] PRN PRN Reason: Shortness of Breath Amitriptyline HCl (Elavil) 50 mg PO HS [facility] Last Admin: 09/06/16 22:14 Dose: 50 mg Amlodipine Besylate (Norvasc) 10 mg PO DAILY [facility] Last Admin: 09/07/16 11:12 Dose: 10 mg Aspirin (Ecotrin) 81 mg PO DAILY [facility] Last Admin: 09/07/16 11:13 Dose: 81 mg Atorvastatin Calcium (Lipitor) 40 mg PO DIN [facility] Last Admin: 09/06/16 17:25 Dose: 40 mg Clonidine HCl (Catapres) 0.1 mg PO Q6 PRN PRN Reason: Systolic Blood Pressure Last Admin: 09/06/16 06:40 Dose: 0.1 mg Enoxaparin Sodium (Lovenox) 40 mg SC DAILY [facility] PRN Reason: Protocol Last Admin: 09/07/16 11:13 Dose: 40 mg Gabapentin (Neurontin) 100 mg PO TID [facility] PRN Reason: Protocol Last Admin: 09/07/16 14:16 Dose: Not Given Insulin Detemir (Levemir) 34 unit SC HS [facility] Last Admin: 09/06/16 22:13 Dose: 34 unit Insulin Human Lispro (Humalog Low) 0 units SC ACHS [facility] PRN Reason: Protocol Last Admin: 09/07/16 11:43 Dose: 2 units Insulin Human Lispro (Humalog) 10 units SC AC [facility] Last Admin: 09/07/16 12:00 Dose: Not Given Lisinopril (Zestril) 40 mg PO DAILY [facility] Last Admin: 09/07/16 11:12 Dose: 40 mg Lorazepam (Ativan) 0.5 mg PO TID PRN; Protocol PRN Reason: Anxiety Last Admin: 09/07/16 11:10 Dose: 0.5 mg Lorazepam (Ativan) 1 mg IVP ONCE ONE PRN Reason: Protocol Stop: 09/07/16 16:24 Metoprolol Tartrate (Lopressor) 75 mg PO BID [facility] Last Admin: 09/07/16 11:12 Dose: 75 mg Ondansetron HCl (Zofran Odt) 4 mg PO Q8 PRN PRN Reason: Nausea/Vomiting Pantoprazole Sodium (Protonix Ec Tab) 40 mg PO 0630 [facility] Last Admin: 09/07/16 06:51 Dose: 40 mg Polyethylene Glycol (Miralax) 17 gm PO DAILY [facility] Last Admin: 09/07/16 11:14 Dose: Not Given - Labs Labs: 09/07/16 06:45 09/07/16 06:45 PT 10.6 Seconds (9.9-11.8) 09/03/16 19:25 INR 0.98 (0.93-1.08) 09/03/16 19:25 APTT 26.1 Seconds (23.7-30.8) 09/03/16 19:25 Attending/Attestation - Attestation I have personally seen and examined this patient.: Yes I have fully participated in the care of the patient.: Yes I have reviewed all pertinent clinical information, including history, physical exam and plan: Yes Notes (Text): I have seen and examined patient at bedside. This is 61 year old female with history of poorly controlled IDDM, HTN, HLD, prior CVA with residual RLE weakness who got admitted 3 weeks ago and found to have hypertensive encephalopathy. She was discharged to rehab and from there when she went home, she had generalized weakness and fell couple of times. CT head did not reveal any acute stroke. Will obtain neuro consult as family is very concerned if patient had a new stroke 3 weeks ago. Will adjust BP meds today. Will check hba1c and order for PT. Will order right ankle xray as she is complaining of pain. Patient also appears depressed. Will discuss with Dr Tanner if patient is a candidate for inpatient psych treatment. Dr Brunilda Jose
--- NOTE | 2016-09-06 18:50 | CP.PCM.PCO ---
Physician Communication Note - Physician Communication Note Physician Communication Note: AMs is more delirium. EEG showed BCD, No sz. MRI brain reveiwed. Signoff
[2016-09-06] MEDS: Insulin Detemir 100 units/ml Vial (Levemir) SC SCH (22:13)
--- NOTE | 2016-09-07 06:46 | CON ---
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 She just came from rehab and complained of unsteady gait, difficulty walking and altered mental status. Family says since the stroke 3 weeks ago, the patient has had several falling inciden alden and multiple falls and also patient is aphasic. PAST SURGICAL HISTORY: Hysterectomy, ovarian cyst and appendectomy surgery. SOCIAL HISTORY: Used to smoke marijuana. ALLERGIES: KIWI. MEDICATIONS: Aspirin, statin, Norvasc, lisinopril, Lopressor, Levemir insulin. REVIEW OF SYSTEMS: A 10-point review of systems was negative. PHYSICAL EXAMINATION: HEENT: Normocephalic, atraumatic. NECK: Supple. NEUROLOGIC: Awake, aphasic. No facial asymmetry. Tongue midline. Both pupils equal and reactive. Spontaneous movement of both upper extremities noted and deep tendon reflexes 1+. Both plantars are downgoing. Sensory appears intact. Cerebellar gait deferred. IMPRESSION: Encephalopathy and residual right lower extremity weakness, recent stroke 3 weeks ago. T he patient had difficulty ambulating and he presented to the hospital with altered mental status, pos sible encephalopathy. Workup is in progress. CAT scan of the head was negative. We will follow up. Sarmad Figueroa MD cc: [id number] TT: 09/07/2016 06:45:29 Confirmation # [id number] Dictation # [id number]
[2016-09-07] MEDS: Pantoprazole 40 mg EC Tab PO SCH (06:51)
[2016-09-07 07:44] LABS: ADD MANUAL DIFF? NO
[2016-09-07 07:49] LABS: BASO # 0.11 K/mm3 (0.0-2.0); BASO % 1.2 % (0.0-3.0); EOS # 0.6 (0.0-0.7); EOS % 5.8 % (1.5-5.0); GRAN % 61.3 % (50.0-68.0); HEMATOCRIT 36.6 % (36.0-48.0); LYMPH # 2.6 (1.2-3.4); LYMPH % 27.2 % (22.0-35.0); MEAN CELL VOLUME 83.6 fL (80.0-105.0); MEAN CORPUSCULAR HEMOGLOBIN 27.2 pg (25.0-35.0); MEAN CORPUSCULAR HGB CONC 32.5 g/dl (31.0-37.0); MONO # 0.4 (0.1-0.6); MONO % 4.5 % (1.0-6.0); PLATELET COUNT 312 10^3/uL (120.0-450.0); RED CELL DISTRIBUTION WIDTH 13.5 % (11.5-14.5); WHITE BLOOD COUNT 9.5 10^3/ul (4.5-11.0)
[2016-09-07 08:01] LABS: ALB/GLOB RATIO 1.3 (1.1-1.8); ALKALINE PHOSPHATASE 112 U/L (38-133); ALT/SGPT 16 U/L (7-56); AST/SGOT 21 U/L (15-39); BILIRUBIN,TOTAL 0.5 mg/dL (0.2-1.3); BLOOD UREA NITROGEN 27 mg/dL (7-21); CALCIUM 9.5 mg/dL (8.4-10.5); CARBON DIOXIDE 26 mmol/L (21-33); CHLORIDE 104 mmol/L (95-110); GFR AFRICAN-AMERICAN > 60; GLUCOSE,RANDOM 174 mg/dL (70-110); POTASSIUM 4.5 mmol/L (3.6-5.0); SODIUM 142 mmol/L (132-148); TOTAL PROTEIN 7.1 g/dL (5.8-8.3)
[2016-09-07] MEDS: Insulin Lispro 1 UNITS/0.01 ML SC SCH ×3 (08:23→17:13)
[2016-09-07] MEDS: Insulin Lispro (humaLOG) LOW Coverage SC SCH ×4 (08:23→22:29)
[2016-09-07] MEDS: Enoxaparin 40 mg Syringe SC SCH (11:13)
[2016-09-07] MEDS: POLYETHYLENE GLYCOL 3350 17 GM/Dose PACKET PO SCH (11:14)
[2016-09-07] MEDS: cefTRIAXone 1 gm 100 ML IVPB SCH (13:20)
--- NOTE | 2016-09-07 14:19 | CON ---
DATE: 09/07/2016 HISTORY OF PRESENT ILLNESS: Shortly, patient is a 61-year-old female with multiple medical problems including diabetes, hypertension, hyperlipidemia, history of CVA with residual right lower extremity weakness. The patient was brought in for evaluation of change in mental status, altered mental statu s, as well as unsteady gait and behavioral changes. Psych consult was called for evaluation of alexander e in mental status and patient has history of depression. The patient was seen and examined initiall y by Dr. Luke and this business writer is following up on this patient. The patient is very familiar to this business writer from the previous admission on the medical floor which took place on 08/11/2016. The patient b ack then had CVA and was found to be very depressed. This business writer initiated amitriptyline and patient was transferred to subacute rehab back then. The patient was seen today at the morning time. The p atient presented to be alert. Seems to have good appetite, was eating while this business writer tried to int erview her. The patient seems to be disengaged into the conversation, more interested with her break fast than to talk to this business writer. The patient said that she is okay and refused to talk anymore. Th e patient is either selectively mute or having aphasia. This business writer reviewed notes by medical team a s well as neurology team. As per nursing report, patient does not have any behavioral disturbances, no agitation nor aggression. PAST PSYCHIATRIC HISTORY: This business writer reviewed previous notes. The patient reported never being adm itted to the psychiatric inpatient unit and does not have history of suicidal attempt. The patient s aid that she had history of being seen by a psychiatrist in [place] and she was on some psychotro pic medications, but she did not remember what medication she had taken before. This is based on my previous notes, which took place at the beginning of August, 08/11/2016. The patient has family history of schizophrenia. No family history of suicidal attempts. VITAL SIGNS: Reviewed. Temperature 98.8, pulse is 68, blood pressure 160/80, respirations 18, oxyge n saturation is 91. MEDICATIONS: Reviewed. Tylenol, DuoNeb. The patient is on ____ mg at the nighttime, Norvasc 10 mg daily, aspirin ____ mg daily, Lipitor 40 mg, ____ IV, Catapres 0.1 mg p.r.n., Lovenox, Neurontin ____ mg 3 times a day, Levemir 34 units subcutaneously at the nighttime, Humalog, lisinopril, Ativan 0.5 mg 3 times a day as needed, Lopressor 75 mg twice a day, Zofran, Protonix and MiraLax. LABORATORY DATA: Labs reviewed. Today seem to be within normal limits. ____ is within normal limit s. Chemistry, most recent from today, BUN 27. Urinalysis on showed protein high and blood smal l. Toxicology negative for any substances. MENTAL STATUS EXAMINATION: The patient appears to be alert, said that she is okay. Intermittent eye contact. The patient was observed eating with a good appetite. Seems to be disengaged into the con versation. No eye contact. Speech this business writer was not able to assess because patient was mute. Thi s business writer is not sure is it related to aphasia or patient was not willing to talk. Insight and judgme nt unknown. Impulses are well predictable. The patient does not appear to be psychotic and does not appear to be responding to internal stimuli. IMPRESSION: The patient has history of cerebrovascular accident related depression. The patient has multiple medical problems including diabetes, hypertension, hyperlipidemia, history of cerebrovascul ar accidents, residual right lower extremity weakness. The patient also had a stroke 3 weeks ago. A t present moment, seems to be delirious. PLAN: Continue current management. Continue Ativan as needed. Continue nortriptyline. Continue ph ysical therapy. We will follow up and advise accordingly. At present moment, patient does not want to talk. We will follow up tomorrow. Thank you very much for letting me participate in care of your patient. Flores Perdue MD cc: [id number] TT: 09/07/2016 12:43:32 Confirmation # [id number] Dictation # [id number]
--- NOTE | 2016-09-07 15:03 | CP.PCM.PN ---
<Yann Prakash - Last Filed: 09/07/16 17:21> Subjective - Date & Time of Evaluation Date of Evaluation: 09/07/16 Time of Evaluation: 07:30 - Subjective Subjective: 61 yo female with hx of a stroke presented to the ED. Per family, approximately 3 weeks ago pt had an acute change in mental status. Today, patient is awake but would not engage in conversation or answer questions. She was able to follow commands and did mumble a few words. A ROS was not able to be obtained due to pt. not communicating. Objective - Vital Signs/Intake and Output Vital Signs (last 24 hours): Temp Pulse Resp BP Pulse Ox 98.7 F 80 20 160/80 H 99 09/07/16 07:30 09/07/16 11:12 09/07/16 07:30 09/07/16 11:12 09/07/16 07:30 Intake and Output: 09/07/16 09/07/16 06:59 18:59 Intake Total 660 Output Total 3 Balance 657 - Medications Medications: Current Medications Acetaminophen (Tylenol 325mg Tab) 650 mg PO Q4H PRN PRN Reason: Headache Last Admin: 09/06/16 22:40 Dose: 650 mg Albuterol/Ipratropium (Duoneb 3 Mg/0.5 Mg (3 Ml) Ud) 3 ml IH [id number] PRN PRN Reason: Shortness of Breath Amitriptyline HCl (Elavil) 50 mg PO HS [facility] Last Admin: 09/06/16 22:14 Dose: 50 mg Amlodipine Besylate (Norvasc) 10 mg PO DAILY [facility] Last Admin: 09/07/16 11:12 Dose: 10 mg Aspirin (Ecotrin) 81 mg PO DAILY [facility] Last Admin: 09/07/16 11:13 Dose: 81 mg Atorvastatin Calcium (Lipitor) 40 mg PO DIN [facility] Last Admin: 09/06/16 17:25 Dose: 40 mg Clonidine HCl (Catapres) 0.1 mg PO Q6 PRN PRN Reason: Systolic Blood Pressure Last Admin: 09/06/16 06:40 Dose: 0.1 mg Enoxaparin Sodium (Lovenox) 40 mg SC DAILY [facility] PRN Reason: Protocol Last Admin: 09/07/16 11:13 Dose: 40 mg Gabapentin (Neurontin) 100 mg PO TID [facility] PRN Reason: Protocol Last Admin: 09/07/16 14:16 Dose: Not Given Insulin Detemir (Levemir) 34 unit SC HS [facility] Last Admin: 09/06/16 22:13 Dose: 34 unit Insulin Human Lispro (Humalog Low) 0 units SC ACHS [facility] PRN Reason: Protocol Last Admin: 09/07/16 11:43 Dose: 2 units Insulin Human Lispro (Humalog) 10 units SC AC [facility] Last Admin: 09/07/16 12:00 Dose: Not Given Lisinopril (Zestril) 40 mg PO DAILY [facility] Last Admin: 09/07/16 11:12 Dose: 40 mg Lorazepam (Ativan) 0.5 mg PO TID PRN; Protocol PRN Reason: Anxiety Last Admin: 09/07/16 11:10 Dose: 0.5 mg Metoprolol Tartrate (Lopressor) 75 mg PO BID [facility] Last Admin: 09/07/16 11:12 Dose: 75 mg Ondansetron HCl (Zofran Odt) 4 mg PO Q8 PRN PRN Reason: Nausea/Vomiting Pantoprazole Sodium (Protonix Ec Tab) 40 mg PO 0630 [facility] Last Admin: 09/07/16 06:51 Dose: 40 mg Polyethylene Glycol (Miralax) 17 gm PO DAILY [facility] Last Admin: 09/07/16 11:14 Dose: Not Given - Labs Labs: 09/07/16 06:45 09/07/16 06:45 PT 10.6 Seconds (9.9-11.8) 09/03/16 19:25 INR 0.98 (0.93-1.08) 09/03/16 19:25 APTT 26.1 Seconds (23.7-30.8) 09/03/16 19:25 - Constitutional Appears: No Acute Distress, Other (Annoyed) - Head Exam Head Exam: ATRAUMATIC, NORMOCEPHALIC - Eye Exam Eye Exam: EOMI - ENT Exam ENT Exam: Mucous Membranes Moist - Neck Exam Neck Exam: absent: Lymphadenopathy - Respiratory Exam Respiratory Exam: Clear to Ausculation Bilateral, NORMAL BREATHING PATTERN. absent: Rhonchi, Wheezes - Cardiovascular Exam Cardiovascular Exam: REGULAR RHYTHM, RRR, +S1, +S2. absent: JVD - GI/Abdominal Exam GI & Abdominal Exam: Soft, Normal Bowel Sounds. absent: Tenderness - Extremities Exam Extremities Exam: absent: Joint Swelling, Pedal Edema - Neurological Exam Neurological Exam: Awake - Psychiatric Exam Psychiatric exam: Depressed, Flat Affect - Skin Skin Exam: Dry, Intact, Normal Color, Warm Assessment and Plan - Assessment and Plan (Free Text) Assessment: 61yo F with PMHx of poorly controlled DM, HTN, HLD, prior CVA with residual RLE weakness and recent change in mental status 3 weeks ago. Her last recorded stroke was 3 months ago. Here for evaluation of AMS, behavioral changes and unsteady gait immediately following rehab. Plan: AMS possibly HTN encephalopathy, unlikely TIA or stroke. Possible delirum precipitated by UTI - r/o Ischemic - trend cardiac enzyme Trops x3 negative - r/o Infectious- UTI - no growth d/c ceftriaxone - Iatrogenic -vno hypoglycemia or electrolyte imbalance (CMP WNL) - Low suspicion for TIA/CVA - Possible delirium - Ativan 1mg PO prn - Neuro consult - Dr. Akhil Figueroa, recs appreciated -AMS is more delirium, EEG showed baseline cognitive defects, no seizure, MRI reviewed, signing off HTN - uncontrolled - Norvasc 10 daily - lopressor to 75mg BID - lisinopril to 40 daily - Clonidine .1mg q6 prn - Systolic BP in the 150's to 170's - will continue to adjust meds to optimize pressures IDDM poor control - Levemr 34 HS - 10 humalog TID - ISSS , - peripheral neuropathy, a1c 12.6 (Jul 2016) - sugars 187 - 207 Diabetic neuropathy - neurontin 100 tid History of Falls - Deconditioning vs HTN encephalopathy vs orthostatic hypotention - orthostatic vitals ordered - physical therapy consult ordered -PT recommends [facility] vs TCU - Hip x ray - no acute fracture or dislocation, see full report - CT face to r/o fracture - no acute nasal bone or maxillofacial fracture, see full report - CT Head -No CT evidence of acute intracranial abnormality, evidence of old lacunar infarcts, see full report Depression Psych consult, Dr. Luke, appreciate recs -continue Elavil 50mg Psych consult, Dr. Tanenr, appreciate recs -will reevaluate tomorrow for possible admit to psych, pt. currently not engaging and possibly selective mute. -Ativan .5mg TID PRN HLD hx CVA w/ right LE residual deficit & aphasia; per family 3 weeks ago - ASA, lipitor 40 Right ankle pain Xray 3 view right -no acute fracture, please see full report Constipation - miralax Prophylaxis - protonix, lovenox, zofran prn <Brunilda Jose B - Last Filed: 09/08/16 14:29> Objective - Vital Signs/Intake and Output Vital Signs (last 24 hours): Temp Pulse Resp BP Pulse Ox 98.0 F 89 20 169/95 H 99 09/08/16 07:30 09/08/16 10:03 09/08/16 07:30 09/08/16 10:03 09/08/16 07:30 Intake and Output: 09/08/16 09/08/16 06:59 18:59 Intake Total 360 Balance 360 - Medications Medications: Current Medications Acetaminophen (Tylenol 325mg Tab) 650 mg PO Q4H PRN PRN Reason: Headache Last Admin: 09/06/16 22:40 Dose: 650 mg Albuterol/Ipratropium (Duoneb 3 Mg/0.5 Mg (3 Ml) Ud) 3 ml IH [id number] PRN PRN Reason: Shortness of Breath Amitriptyline HCl (Elavil) 50 mg PO HS [facility] Last Admin: 09/07/16 22:34 Dose: 50 mg Amlodipine Besylate (Norvasc) 10 mg PO DAILY [facility] Last Admin: 09/08/16 10:02 Dose: 10 mg Aspirin (Ecotrin) 81 mg PO DAILY [facility] Last Admin: 09/08/16 10:03 Dose: 81 mg Atorvastatin Calcium (Lipitor) 40 mg PO DIN [facility] Last Admin: 09/07/16 17:12 Dose: 40 mg Clonidine HCl (Catapres) 0.1 mg PO Q6 PRN PRN Reason: Systolic Blood Pressure Last Admin: 09/06/16 06:40 Dose: 0.1 mg Clonidine HCl (Catapres) 0.1 mg PO BID [facility] Last Admin: 09/08/16 10:02 Dose: 0.1 mg Enoxaparin Sodium (Lovenox) 40 mg SC DAILY [facility] PRN Reason: Protocol Last Admin: 09/08/16 10:03 Dose: 40 mg Gabapentin (Neurontin) 100 mg PO TID [facility] PRN Reason: Protocol Last Admin: 09/08/16 13:37 Dose: Not Given Insulin Detemir (Levemir) 34 unit SC HS [facility] Last Admin: 09/07/16 22:34 Dose: 34 unit Insulin Human Lispro (Humalog Low) 0 units SC ACHS [facility] PRN Reason: Protocol Last Admin: 09/08/16 11:59 Dose: Not Given Insulin Human Lispro (Humalog) 10 units SC AC [facility] Last Admin: 09/08/16 11:59 Dose: Not Given Lisinopril (Zestril) 40 mg PO DAILY [facility] Last Admin: 09/08/16 10:03 Dose: 40 mg Lorazepam (Ativan) 0.5 mg PO TID PRN; Protocol PRN Reason: Anxiety Last Admin: 09/08/16 07:55 Dose: 0.5 mg Metoprolol Tartrate (Lopressor) 75 mg PO BID [facility] Last Admin: 09/08/16 10:03 Dose: 75 mg Ondansetron HCl (Zofran Odt) 4 mg PO Q8 PRN PRN Reason: Nausea/Vomiting Pantoprazole Sodium (Protonix Ec Tab) 40 mg PO 0630 [facility] Last Admin: 09/08/16 05:43 Dose: 40 mg Polyethylene Glycol (Miralax) 17 gm PO DAILY [facility] Last Admin: 09/08/16 10:04 Dose: Not Given - Labs Labs: 09/08/16 06:30 09/08/16 06:30 PT 10.6 Seconds (9.9-11.8) 09/03/16 19:25 INR 0.98 (0.93-1.08) 09/03/16 19:25 APTT 26.1 Seconds (23.7-30.8) 09/03/16 19:25 Attending/Attestation - Attestation I have personally seen and examined this patient.: Yes I have fully participated in the care of the patient.: Yes I have reviewed all pertinent clinical information, including history, physical exam and plan: Yes Notes (Text): I have seen and examined patient at bedside. This is 61 year old female with history of poorly controlled IDDM, HTN, HLD, prior CVA with residual RLE weakness who got admitted 3 weeks ago and found to have hypertensive encephalopathy. She was discharged to rehab and from there when she went home, she had generalized weakness and fell couple of times. CT head did not reveal any acute stroke. Neuro consult was obtained. She has hypertensive encephalopathy vs delirium. BP improved. Lisinopril was increased to 40 mg. Continue norvasc, lopressor and continue clonidine prn. Patient also appears depressed. Patient is mute and did not speak at all. Will discuss with Dr Tanner if patient is a candidate for inpatient psych treatment. Dr Brunilda Jose
--- NOTE | 2016-09-07 16:47 | PN ---
DATE: 09/07/2016 CHIEF COMPLAINT: Followup for altered mental status, behavioral changes. SUBJECTIVE: The patient is seen and examined at bedside. She has residual right-sided weakness from a prior CVA. She has good eye contact. She is alert, but she becomes disengaged in conversation. Psychiatry note reviewed and mentioned that she could be having underlying cerebrovascular depression which I agree with and she mostly has some mild agitated behavior. She also has fluctuating elevate d blood sugars. PAST MEDICAL HISTORY: Diabetes, uncontrolled; hypertension, dyslipidemia, history of CVA with residu al right-sided weakness. FAMILY HISTORY: Noncontributory. MEDICATIONS: Reviewed via nurse's reconciliation sheet. ALLERGIES: ALLERGIC TO KIWI. REVIEW OF SYSTEMS: A 14-point review of systems negative except for the HPI. SOCIAL HISTORY: No illicit drug use, smoking, or ETOH abuse. PHYSICAL EXAMINATION: VITAL SIGNS: Temperature of 98.7, pulse rate 64, blood pressure 168/77, respiratory rate 20, oxygen saturation 99% via room air. GENERAL: The patient is lying in bed, in no acute distress. HEENT: Atraumatic, normocephalic. PERRLA. Extraocular muscles intact. NECK: Supple, no JVD, no adenopathy noted. LUNGS: Clear to auscultation. No adventitious sounds. HEART: S1, S2, normal rate and rhythm. No murmurs, rubs, or gallops. ABDOMEN: Soft, nontender, nondistended. Bowel sounds are present. EXTREMITIES: No clubbing, no cyanosis. Peripheral pulses 2+ felt bilaterally. NEUROLOGIC: The patient is alert, oriented to person and place, not much of month and year. Poor at tention span, slowed thought process. Cranial nerves II-XII are intact. MOTOR: Moves all extremities equally. Has mild residual right-sided weakness prior CVA. SENSORY: Decreased light touch and pinprick up to the calves bilaterally. Decreased vibration of th e toes. DEEP TENDON REFLEXES: 1+ throughout and absent at the ankles. COORDINATION: [id number] intact. GAIT: Deferred for now. LABORATORY DATA: Blood sugar is 187 today. ASSESSMENT AND PLAN: This is a 61-year-old woman with past medical history of poorly controlled diab etes, hypertension, dyslipidemia, prior cerebrovascular accident with residual right lower extremity weakness and has a recent change in mental status for the past 3 weeks, here for behavioral changes a nd unsteady gait. Her altered mental status is likely secondary to hypertensive encephalopathy since she had elevated systolic and diastolic blood pressures, superimposed underlying delirium and underl royal cerebrovascular accident-related depression. At this time, recommend: 1. Keep her systolic blood pressure between 120-130 mmHg. 2. Keep her blood sugars between 140-180. 3. Continue with aspirin 81 mg and Lipitor 40 mg daily for stroke prevention. 4. Keep her on gabapentin 100 mg p.o. t.i.d. for neuropathic pain as well as helps her with anxiety. 5. Diabetic diet needs to be given and diabetic education. 6. Will likely need some subacute rehab for her underlying deconditioned state. At this time, alex sahue with current present medical management. Thank you for this followup. No further neurological workup needed at this time. We will sign off. Emiliano Figueroa MD cc: [id number] TT: 09/07/2016 16:46:01 Confirmation # [id number] Dictation # [id number]
[2016-09-07] MEDS: Insulin Detemir 100 units/ml Vial (Levemir) SC SCH (22:34)
[2016-09-08] MEDS: Pantoprazole 40 mg EC Tab PO SCH (05:43)
[2016-09-08 07:10] LABS: ADD MANUAL DIFF? NO
[2016-09-08 07:18] LABS: BASO # 0.07 K/mm3 (0.0-2.0); BASO % 0.8 % (0.0-3.0); EOS # 0.4 (0.0-0.7); EOS % 5.2 % (1.5-5.0); GRAN # 5.25 (1.4-6.5); GRAN % 63.6 % (50.0-68.0); HEMATOCRIT 34.1 % (36.0-48.0); LYMPH # 2.1 (1.2-3.4); LYMPH % 25.9 % (22.0-35.0); MEAN CELL VOLUME 82.6 fL (80.0-105.0); MEAN CORPUSCULAR HEMOGLOBIN 26.9 pg (25.0-35.0); MEAN CORPUSCULAR HGB CONC 32.6 g/dl (31.0-37.0); MEAN PLATELET VOLUME 9.9 fl (7.0-11.0); MONO # 0.4 (0.1-0.6); MONO % 4.5 % (1.0-6.0); PLATELET COUNT 295 10^3/uL (120.0-450.0); RED CELL DISTRIBUTION WIDTH 13.5 % (11.5-14.5); WHITE BLOOD COUNT 8.3 10^3/ul (4.5-11.0)
[2016-09-08 07:51] LABS: ALB/GLOB RATIO 1.1 (1.1-1.8); ALKALINE PHOSPHATASE 93 U/L (38-133); ALT/SGPT 18 U/L (7-56); AST/SGOT 21 U/L (15-39); BILIRUBIN,TOTAL 0.5 mg/dL (0.2-1.3); BLOOD UREA NITROGEN 24 mg/dL (7-21); CALCIUM 9.1 mg/dL (8.4-10.5); CARBON DIOXIDE 25 mmol/L (21-33); CHLORIDE 105 mmol/L (98-107); GFR AFRICAN-AMERICAN > 60; GLUCOSE,RANDOM 117 mg/dL (70-110); POTASSIUM 3.9 mmol/L (3.6-5.0); SODIUM 141 mmol/L (132-148); TOTAL PROTEIN 6.8 g/dL (5.8-8.3)
[2016-09-08] MEDS: Insulin Lispro 1 UNITS/0.01 ML SC SCH ×3 (08:28→17:46)
[2016-09-08] MEDS: Insulin Lispro (humaLOG) LOW Coverage SC SCH ×4 (08:28→21:46)
[2016-09-08] MEDS: Enoxaparin 40 mg Syringe SC SCH (10:03)
[2016-09-08] MEDS: POLYETHYLENE GLYCOL 3350 17 GM/Dose PACKET PO SCH (10:04)
--- NOTE | 2016-09-08 15:18 | CP.PCM.PN ---
<Yann Prakash - Last Filed: 09/08/16 17:11> Subjective - Date & Time of Evaluation Date of Evaluation: 09/08/16 Time of Evaluation: 09:00 - Subjective Subjective: 61 yo female with hx of a stroke presented to the ED. Per family, approximately 3 weeks ago pt had an acute change in mental status. Today, patient is awake but would not engage in conversation but was willing to answer yes/no questions. She complained of neck and back pain. She denies headache, chest pain , difficulty breathing, or abdominal pain. She was restless during the exam. However, the exam was shortened do to the pt. ceasing to engage in all communication. Objective - Vital Signs/Intake and Output Vital Signs (last 24 hours): Temp Pulse Resp BP Pulse Ox 98.0 F 89 20 169/95 H 99 09/08/16 07:30 09/08/16 10:03 09/08/16 07:30 09/08/16 10:03 09/08/16 07:30 Intake and Output: 09/08/16 09/08/16 06:59 18:59 Intake Total 360 480 Balance 360 480 - Medications Medications: Current Medications Acetaminophen (Tylenol 325mg Tab) 650 mg PO Q4H PRN PRN Reason: Headache Last Admin: 09/06/16 22:40 Dose: 650 mg Albuterol/Ipratropium (Duoneb 3 Mg/0.5 Mg (3 Ml) Ud) 3 ml IH [id number] PRN PRN Reason: Shortness of Breath Amitriptyline HCl (Elavil) 50 mg PO HS [facility] Last Admin: 09/07/16 22:34 Dose: 50 mg Amlodipine Besylate (Norvasc) 10 mg PO DAILY [facility] Last Admin: 09/08/16 10:02 Dose: 10 mg Aspirin (Ecotrin) 81 mg PO DAILY [facility] Last Admin: 09/08/16 10:03 Dose: 81 mg Atorvastatin Calcium (Lipitor) 40 mg PO DIN [facility] Last Admin: 09/07/16 17:12 Dose: 40 mg Clonidine HCl (Catapres) 0.1 mg PO Q6 PRN PRN Reason: Systolic Blood Pressure Last Admin: 09/06/16 06:40 Dose: 0.1 mg Clonidine HCl (Catapres) 0.1 mg PO BID [facility] Last Admin: 09/08/16 10:02 Dose: 0.1 mg Enoxaparin Sodium (Lovenox) 40 mg SC DAILY [facility] PRN Reason: Protocol Last Admin: 09/08/16 10:03 Dose: 40 mg Gabapentin (Neurontin) 100 mg PO TID [facility] PRN Reason: Protocol Last Admin: 09/08/16 13:37 Dose: Not Given Insulin Detemir (Levemir) 34 unit SC HS [facility] Last Admin: 09/07/16 22:34 Dose: 34 unit Insulin Human Lispro (Humalog Low) 0 units SC ACHS [facility] PRN Reason: Protocol Last Admin: 09/08/16 11:59 Dose: Not Given Insulin Human Lispro (Humalog) 10 units SC AC [facility] Last Admin: 09/08/16 11:59 Dose: Not Given Lisinopril (Zestril) 40 mg PO DAILY [facility] Last Admin: 09/08/16 10:03 Dose: 40 mg Lorazepam (Ativan) 0.5 mg PO TID PRN; Protocol PRN Reason: Anxiety Last Admin: 09/08/16 07:55 Dose: 0.5 mg Metoprolol Tartrate (Lopressor) 75 mg PO BID [facility] Last Admin: 09/08/16 10:03 Dose: 75 mg Ondansetron HCl (Zofran Odt) 4 mg PO Q8 PRN PRN Reason: Nausea/Vomiting Pantoprazole Sodium (Protonix Ec Tab) 40 mg PO 0630 [facility] Last Admin: 09/08/16 05:43 Dose: 40 mg Polyethylene Glycol (Miralax) 17 gm PO DAILY [facility] Last Admin: 09/08/16 10:04 Dose: Not Given - Labs Labs: 09/08/16 06:30 09/08/16 06:30 PT 10.6 Seconds (9.9-11.8) 09/03/16 19:25 INR 0.98 (0.93-1.08) 09/03/16 19:25 APTT 26.1 Seconds (23.7-30.8) 09/03/16 19:25 - Constitutional Appears: Non-toxic, No Acute Distress - Head Exam Head Exam: ATRAUMATIC, NORMOCEPHALIC - Eye Exam Eye Exam: EOMI - ENT Exam ENT Exam: Mucous Membranes Moist - Neck Exam Neck Exam: Full ROM - Respiratory Exam Respiratory Exam: Clear to Ausculation Bilateral, NORMAL BREATHING PATTERN. absent: Rhonchi, Wheezes - Cardiovascular Exam Cardiovascular Exam: REGULAR RHYTHM, JVD. absent: +S1, +S2 - GI/Abdominal Exam GI & Abdominal Exam: Soft, Normal Bowel Sounds. absent: Tenderness - Back Exam Back Exam: paraspinal tenderness, tenderness. absent: rash noted - Neurological Exam Neurological Exam: Altered (vs selective mutism), Awake - Psychiatric Exam Psychiatric exam: Depressed - Skin Skin Exam: Dry, Intact, Normal Color, Warm Assessment and Plan - Assessment and Plan (Free Text) Assessment: 61yo F with PMHx of poorly controlled DM, HTN, HLD, prior CVA with residual RLE weakness and recent change in mental status 3 weeks ago. Her last recorded stroke was 3 months ago. She is being evaluated for AMS from 3 weeks ago due to behavioral changes and unsteady gait immediately following rehab. Hypertensive encephalopathy vs unlikely TIA vs delirium Plan: AMS possibly HTN encephalopathy, unlikely TIA or stroke. Possible delirum precipitated by UTI - r/o Ischemic - trend cardiac enzyme Trops x3 negative - r/o Infectious- UTI - no growth d/c ceftriaxone - Iatrogenic -vno hypoglycemia or electrolyte imbalance (CMP WNL) - Low suspicion for TIA/CVA - Possible delirium - Ativan 1mg PO prn - Neuro consult - Dr. Akhil Figueroa, recs appreciated -AMS is more delirium, EEG showed baseline cognitive defects, no seizure, MRI reviewed, signing off HTN - uncontrolled - Norvasc 10 daily - lopressor to 75mg BID - lisinopril to 40 daily - Clonidine .1mg q6 prn - added Clonidine .1mg BID - Systolic BP in the 150's to 170's - will continue to adjust meds to optimize pressures IDDM poor control - Levemr 34 HS - 10 humalog TID - ISSS , - peripheral neuropathy, a1c 12.6 (Jul 2016) - sugars 187 - 207 Diabetic neuropathy - neurontin 100 tid History of Falls - Deconditioning vs HTN encephalopathy vs orthostatic hypotention - orthostatic vitals ordered - physical therapy consult ordered -PT recommends [facility] vs [facility] - Hip x ray - no acute fracture or dislocation, see full report - CT face to r/o fracture - no acute nasal bone or maxillofacial fracture, see full report - CT Head -No CT evidence of acute intracranial abnormality, evidence of old lacunar infarcts, see full report Depression Psych consult, Dr. Luke, appreciate recs -continue Elavil 50mg Psych consult, Dr. Tanner, appreciate recs -will reevaluate tomorrow for possible admit to psych, pt. currently not engaging and possibly selective mute. -increase Elavil -Ativan .5mg TID PRN HLD hx CVA w/ right LE residual deficit & aphasia; per family 3 weeks ago - ASA, lipitor 40 Right ankle pain Xray 3 view right -no acute fracture, please see full report Constipation - miralax Prophylaxis - protonix, lovenox, zofran prn <Brunilda Jose B - Last Filed: 09/08/16 17:31> Objective - Vital Signs/Intake and Output Vital Signs (last 24 hours): Temp Pulse Resp BP Pulse Ox 98.0 F 89 20 169/95 H 99 09/08/16 07:30 09/08/16 10:03 09/08/16 07:30 09/08/16 10:03 09/08/16 07:30 Intake and Output: 09/08/16 09/08/16 06:59 18:59 Intake Total 360 480 Balance 360 480 - Medications Medications: Current Medications Acetaminophen (Tylenol 325mg Tab) 650 mg PO Q4H PRN PRN Reason: Headache Last Admin: 09/06/16 22:40 Dose: 650 mg Albuterol/Ipratropium (Duoneb 3 Mg/0.5 Mg (3 Ml) Ud) 3 ml IH [id number] PRN PRN Reason: Shortness of Breath Amitriptyline HCl (Elavil) 75 mg PO HS [facility] Amlodipine Besylate (Norvasc) 10 mg PO DAILY [facility] Last Admin: 09/08/16 10:02 Dose: 10 mg Aspirin (Ecotrin) 81 mg PO DAILY [facility] Last Admin: 09/08/16 10:03 Dose: 81 mg Atorvastatin Calcium (Lipitor) 40 mg PO DIN [facility] Last Admin: 09/07/16 17:12 Dose: 40 mg Clonidine HCl (Catapres) 0.1 mg PO Q6 PRN PRN Reason: Systolic Blood Pressure Last Admin: 09/06/16 06:40 Dose: 0.1 mg Clonidine HCl (Catapres) 0.1 mg PO BID [facility] Last Admin: 09/08/16 10:02 Dose: 0.1 mg Enoxaparin Sodium (Lovenox) 40 mg SC DAILY [facility] PRN Reason: Protocol Last Admin: 09/08/16 10:03 Dose: 40 mg Gabapentin (Neurontin) 100 mg PO TID [facility] PRN Reason: Protocol Last Admin: 09/08/16 13:37 Dose: Not Given Insulin Detemir (Levemir) 34 unit SC HS [facility] Last Admin: 09/07/16 22:34 Dose: 34 unit Insulin Human Lispro (Humalog Low) 0 units SC ACHS [facility] PRN Reason: Protocol Last Admin: 09/08/16 11:59 Dose: Not Given Insulin Human Lispro (Humalog) 10 units SC AC [facility] Last Admin: 09/08/16 11:59 Dose: Not Given Lisinopril (Zestril) 40 mg PO DAILY [facility] Last Admin: 09/08/16 10:03 Dose: 40 mg Lorazepam (Ativan) 0.5 mg PO TID PRN; Protocol PRN Reason: Anxiety Last Admin: 09/08/16 07:55 Dose: 0.5 mg Metoprolol Tartrate (Lopressor) 75 mg PO BID [facility] Last Admin: 09/08/16 10:03 Dose: 75 mg Ondansetron HCl (Zofran Odt) 4 mg PO Q8 PRN PRN Reason: Nausea/Vomiting Pantoprazole Sodium (Protonix Ec Tab) 40 mg PO 0630 [facility] Last Admin: 09/08/16 05:43 Dose: 40 mg Polyethylene Glycol (Miralax) 17 gm PO DAILY [facility] Last Admin: 09/08/16 10:04 Dose: Not Given - Labs Labs: 09/08/16 06:30 09/08/16 06:30 PT 10.6 Seconds (9.9-11.8) 09/03/16 19:25 INR 0.98 (0.93-1.08) 09/03/16 19:25 APTT 26.1 Seconds (23.7-30.8) 09/03/16 19:25 Attending/Attestation - Attestation I have personally seen and examined this patient.: Yes I have fully participated in the care of the patient.: Yes I have reviewed all pertinent clinical information, including history, physical exam and plan: Yes Notes (Text): I have seen and examined patient at bedside. This is 61 year old female with history of poorly controlled IDDM, HTN, HLD, prior CVA with residual RLE weakness who got admitted 3 weeks ago and found to have hypertensive encephalopathy. She was discharged to rehab and from there when she went home, she had generalized weakness and fell couple of times. CT head did not reveal any acute stroke. BP improved. Lisinopril was increased to 40 mg and clonidine 0.1 bid was added. Continue norvasc and lopressor. Patient also appears depressed. Today patient is more alert, awake, nodding her head, following simple commands but still not talking. She was evaluated by Dr Tanner who thinks that she will not benefit from psych treatment at this time as she is not engaged in conversation. Amitriptyline dose was increased. Neuro consult appreciated. Most likely her symptoms are related to hypertensive encephalopathy vs delirium. Will order MRI brain. PT recommended [facility] vs [facility]. Dr Brunilda Jose
--- NOTE | 2016-09-08 18:51 | PN ---
DATE: 09/08/2016 HISTORY OF PRESENT ILLNESS: Shortly, the patient is a 61-year-old female with reported history of ma [place] depressive disorder. The patient denied history of being admitted to the psychiatric inpatient [facility]. The patient has multiple medical problems including diabetes, hypertension, hyperlipidemia, his tory of CVA with residual right lower extremity weakness. This automatic typewriter inspector is familiar with the patient f rom the previous admission on the medical floor which took place in [place] at the beginning of this month. Psych consult was called for evaluation of depressive symptoms. The patient was followed up by this automatic typewriter inspector yesterday and today as well. The patient presented to be mute, was able to answer for the questions by nodding her head. The patient was not participating in the interview today. As pe r nursing staff report, the patient was trying to climb off the bed, was able to talk, but presented to be restless. The patient slept through the night. There is no agitation or aggression. Going ba ck to the previous evaluation, the patient was able to communicate her needs, the patient was able to express herself, and at the present moment, this is a deviation from her baseline. VITAL SIGNS: This automatic typewriter inspector reviewed vital signs. Vital signs seem to be stable, but blood pressure is elevated at 159/95. MEDICATIONS: Reviewed. Tylenol, Elavil will be increased to 75 mg at the night, Norvasc 10 mg daily , aspirin 81 mg daily, Lipitor 40 mg, clonidine 0.1 mg q. 6 hours p.r.n. and 0.1 twice a day, L ovenox, Neurontin 100 mg 3 times a day, Levemir, Humalog, Zestril, Ativan 0.5 mg 3 times a day as nee ded, Lopressor, Zofran, Protonix, and MiraLax. Notes reviewed. This automatic typewriter inspector discussed the case with attending, Dr. Emily Jose. Treatment plan was disc ussed in detail. LABORATYR DATA: Labs reviewed, seems to be within normal limits. MENTAL STATUS EXAMINATION: The patient presented to be drowsy, was able to open her eyes, but fallin g asleep in the middle of this automatic typewriter inspector's question, no eye contact. The patient is mute, was communica ting her needs with nodding her head. This automatic typewriter inspector is not sure what the patient's thought process and thought content. Insight and judgment are limited. Impulses are unpredictable. IMPRESSION: Based on presentation most likely the patient has hypoactive delirium and alternation of restlessness and falling asleep and the patient was complaining that she is confused at the morning time. She did not know where she was. This automatic typewriter inspector leaning towards the diagnosis of delirium, hypoac tive, due to general medical condition. The patient has history of depression, but at present moment , the patient presents more delirious than change in mental status. The patient has multiple medical issues. Please see above. PLAN: Continue current management. This automatic typewriter inspector would increase Elavil to 75 mg to help with the depr essive symptoms, it is possible. The patient was seen by neurologist, signed off. Monitor vit al signs. The patient does not have agitation or aggression. Continue Ativan 0.5 mg 3 times a day a s needed. This automatic typewriter inspector will follow up and advise accordingly, but most likely the patient has deliriu m, but underlying depression is highly suspected, but at present moment, the patient has a lot of med ical issues, which need to be addressed first. At the same time, the patient deemed not to have [place] to sign herself into the psychiatric inpatient unit, because she is confused. Meanwhile, contin ue current management. Family involvement, will get back to you and advise accordingly. Case was di scussed with attending, Dr. Emily Jose. Should you have any questions, give me a call back. Flores Perdue MD cc: [id number] TT: 09/08/2016 18:51:08 Confirmation # [id number] Dictation # [id number] mn
[2016-09-08] MEDS: Insulin Detemir 100 units/ml Vial (Levemir) SC SCH (21:46)
[2016-09-09] MEDS: Pantoprazole 40 mg EC Tab PO SCH (06:28)
[2016-09-09 07:15] LABS: ADD MANUAL DIFF? NO
[2016-09-09 07:17] LABS: BASO # 0.08 K/mm3 (0.0-2.0); BASO % 0.9 % (0.0-3.0); EOS # 0.5 (0.0-0.7); EOS % 5.7 % (1.5-5.0); GRAN # 4.77 (1.4-6.5); GRAN % 56.7 % (50.0-68.0); HEMATOCRIT 35.3 % (36.0-48.0); LYMPH # 2.7 (1.2-3.4); MEAN CELL VOLUME 83.8 fL (80.0-105.0); MEAN CORPUSCULAR HEMOGLOBIN 27.3 pg (25.0-35.0); MEAN CORPUSCULAR HGB CONC 32.6 g/dl (31.0-37.0); MEAN PLATELET VOLUME 9.9 fl (7.0-11.0); MONO # 0.4 (0.1-0.6); MONO % 4.7 % (1.0-6.0); PLATELET COUNT 272 10^3/uL (120.0-450.0); RED CELL DISTRIBUTION WIDTH 13.8 % (11.5-14.5); WHITE BLOOD COUNT 8.4 10^3/ul (4.5-11.0)
[2016-09-09 07:32] LABS: ALB/GLOB RATIO 1.2 (1.1-1.8); BILIRUBIN,TOTAL 0.4 mg/dL (0.2-1.3); CALCIUM 9.1 mg/dL (8.4-10.5); POTASSIUM 4.5 mmol/L (3.6-5.0); TOTAL PROTEIN 6.6 g/dL (5.8-8.3)
[2016-09-09] MEDS: Insulin Lispro (humaLOG) LOW Coverage SC SCH ×4 (08:25→22:05)
[2016-09-09] MEDS: Insulin Lispro 1 UNITS/0.01 ML SC SCH ×3 (08:25→17:00)
--- NOTE | 2016-09-09 09:38 | CP.PCM.PN ---
<PrakashYann - Last Filed: 09/09/16 20:43> Subjective - Date & Time of Evaluation Date of Evaluation: 09/09/16 Time of Evaluation: 07:15 - Subjective Subjective: 61 yo female with hx of a htn, dm2, & stroke presented to the ED. Per family, approximately 3 weeks ago pt had an acute change in mental status. Today, patient is awake and able to answer yes/no questions. She denies headache, chest pain, difficulty breathing, or abdominal pain. Objective - Vital Signs/Intake and Output Vital Signs (last 24 hours): Temp Pulse Resp BP Pulse Ox 98.3 F 60 20 151/63 H 99 09/08/16 16:00 09/08/16 17:46 09/08/16 16:00 09/08/16 17:46 09/08/16 16:00 Intake and Output: 09/09/16 09/09/16 06:59 18:59 Intake Total 120 Balance 120 - Medications Medications: Current Medications Acetaminophen (Tylenol 325mg Tab) 650 mg PO Q4H PRN PRN Reason: Headache Last Admin: 09/09/16 00:40 Dose: 650 mg Albuterol/Ipratropium (Duoneb 3 Mg/0.5 Mg (3 Ml) Ud) 3 ml IH [id number] PRN PRN Reason: Shortness of Breath Amitriptyline HCl (Elavil) 75 mg PO HS [facility] Last Admin: 09/08/16 21:45 Dose: 75 mg Amlodipine Besylate (Norvasc) 10 mg PO DAILY [facility] Last Admin: 09/08/16 10:02 Dose: 10 mg Aspirin (Ecotrin) 81 mg PO DAILY [facility] Last Admin: 09/08/16 10:03 Dose: 81 mg Atorvastatin Calcium (Lipitor) 40 mg PO DIN [facility] Last Admin: 09/08/16 17:46 Dose: 40 mg Clonidine HCl (Catapres) 0.1 mg PO Q6 PRN PRN Reason: Systolic Blood Pressure Last Admin: 09/06/16 06:40 Dose: 0.1 mg Clonidine HCl (Catapres) 0.1 mg PO BID [facility] Last Admin: 09/08/16 17:46 Dose: Not Given Enoxaparin Sodium (Lovenox) 40 mg SC DAILY [facility] PRN Reason: Protocol Last Admin: 03/29/17 10:03 Dose: 40 mg Gabapentin (Neurontin) 100 mg PO TID [facility] PRN Reason: Protocol Last Admin: 09/08/16 17:46 Dose: 100 mg Insulin Detemir (Levemir) 34 unit SC HS [facility] Last Admin: 09/08/16 21:46 Dose: 34 unit Insulin Human Lispro (Humalog Low) 0 units SC ACHS [facility] PRN Reason: Protocol Last Admin: 09/09/16 08:25 Dose: Not Given Insulin Human Lispro (Humalog) 10 units SC AC [facility] Last Admin: 09/09/16 08:25 Dose: Not Given Lisinopril (Zestril) 40 mg PO DAILY [facility] Last Admin: 09/08/16 10:03 Dose: 40 mg Lorazepam (Ativan) 0.5 mg PO TID PRN; Protocol PRN Reason: Anxiety Last Admin: 09/08/16 22:50 Dose: 0.5 mg Metoprolol Tartrate (Lopressor) 75 mg PO BID [facility] Last Admin: 09/08/16 17:46 Dose: 75 mg Ondansetron HCl (Zofran Odt) 4 mg PO Q8 PRN PRN Reason: Nausea/Vomiting Last Admin: 09/08/16 22:50 Dose: 4 mg Pantoprazole Sodium (Protonix Ec Tab) 40 mg PO 0630 [facility] Last Admin: 09/09/16 06:28 Dose: 40 mg Polyethylene Glycol (Miralax) 17 gm PO DAILY [facility] Last Admin: 09/08/16 10:04 Dose: Not Given - Labs Labs: 09/09/16 07:00 09/09/16 07:00 PT 10.6 Seconds (9.9-11.8) 09/03/16 19:25 INR 0.98 (0.93-1.08) 09/03/16 19:25 APTT 26.1 Seconds (23.7-30.8) 09/03/16 19:25 - Constitutional Appears: No Acute Distress - Head Exam Head Exam: ATRAUMATIC, NORMOCEPHALIC - Eye Exam Eye Exam: EOMI - ENT Exam ENT Exam: Mucous Membranes Moist - Respiratory Exam Respiratory Exam: Clear to Ausculation Bilateral, NORMAL BREATHING PATTERN - Cardiovascular Exam Cardiovascular Exam: REGULAR RHYTHM, JVD, +S1, +S2 - GI/Abdominal Exam GI & Abdominal Exam: Soft, Normal Bowel Sounds. absent: Tenderness - Extremities Exam Extremities Exam: absent: Joint Swelling, Pedal Edema - Neurological Exam Neurological Exam: Altered, Awake - Psychiatric Exam Psychiatric exam: Depressed - Skin Skin Exam: Dry, Intact, Normal Color, Warm Assessment and Plan - Assessment and Plan (Free Text) Assessment: 61yo F with PMHx of poorly controlled DM, HTN, HLD, prior CVA with residual RLE weakness and recent change in mental status 3 weeks ago. Hypertensive encephalopathy vs unlikely TIA vs delirium. MRI positive for acute stroke, transferred to telemetry. Plan: AMS possibly HTN encephalopathy, unlikely TIA or stroke. Possible delirum precipitated by UTI - r/o Ischemic - trend cardiac enzyme Trops x3 negative - r/o Infectious- UTI - no growth d/c ceftriaxone - Iatrogenic -vno hypoglycemia or electrolyte imbalance (CMP WNL) - Possible delirium - Ativan 1mg PO prn - Neuro consult - Dr. Akhil Figueroa, recs appreciated -AMS is more delirium, EEG showed baseline cognitive defects, no seizure, previous MRI reviewed, current CT negative for acute abnormality - MRI 09/09 -Acute infarct in the right morris radiata and small lacunar-type infarcts in the right thalamus and in both cerebellar hemispheres -Pt. made NPO with swallow eval ordered -Pt. put on ASA 325 and Plavix 75mg -Cario Consult - Dr. Han -Echocardiogram -Carotid Duplex Venous Doppler -PT/OT therapy HTN - uncontrolled - Norvasc 10 daily - lopressor to 75mg BID - lisinopril to 40 daily - Clonidine .1mg q6 prn - added Clonidine .1mg BID - Systolic BP in the 150's to 170's - will continue to adjust meds to optimize pressures - BP 09/09 141/75 IDDM poor control - Levemr 34 HS - 10 humalog TID - ISSS , - peripheral neuropathy, a1c 12.6 (Jul 2016) - sugars 187 - 207 Diabetic neuropathy - neurontin 100 tid History of Falls - Deconditioning vs HTN encephalopathy vs orthostatic hypotention - orthostatic vitals ordered - physical therapy consult ordered -PT recommends [facility] vs [facility]CU - Hip x ray - no acute fracture or dislocation, see full report - CT face to r/o fracture - no acute nasal bone or maxillofacial fracture, see full report - CT Head -No CT evidence of acute intracranial abnormality, evidence of old lacunar infarcts, see full report Depression Psych consult, Dr. Luke, appreciate recs -continue Elavil 50mg Psych consult, Dr. Tanner, appreciate recs -will reevaluate tomorrow for possible admit to psych, pt. currently not engaging and possibly selective mute. -increase Elavil -Ativan .5mg TID PRN HLD hx CVA w/ right LE residual deficit & aphasia; per family 3 weeks ago - ASA, lipitor 40 Right ankle pain Xray 3 view right -no acute fracture, please see full report Constipation - miralax Prophylaxis - protonix, lovenox, zofran prn <Brunilda Jose B - Last Filed: 09/10/16 14:57> Objective - Vital Signs/Intake and Output Vital Signs (last 24 hours): Temp Pulse Resp BP Pulse Ox 98.0 F 75 20 150/70 100 09/10/16 05:49 09/10/16 06:00 09/10/16 05:49 09/10/16 10:03 09/10/16 05:49 Intake and Output: 09/10/16 09/10/16 06:59 18:59 Intake Total 20 Balance 20 - Medications Medications: Current Medications Acetaminophen (Tylenol 325mg Tab) 650 mg PO Q4H PRN PRN Reason: Headache Last Admin: 09/09/16 00:40 Dose: 650 mg Albuterol/Ipratropium (Duoneb 3 Mg/0.5 Mg (3 Ml) Ud) 3 ml IH [id number] PRN PRN Reason: Shortness of Breath Amlodipine Besylate (Norvasc) 10 mg PO DAILY [facility] Last Admin: 09/09/16 10:11 Dose: Not Given Aspirin (Aspirin) 325 mg PO DAILY [facility] Last Admin: 09/09/16 19:33 Dose: Not Given Atorvastatin Calcium (Lipitor) 40 mg PO DIN [facility] Last Admin: 09/09/16 19:34 Dose: Not Given Clonidine HCl (Catapres) 0.1 mg PO BID [facility] Last Admin: 09/10/16 10:00 Dose: Not Given Clopidogrel Bisulfate (Plavix) 75 mg PO DAILY [facility] Enoxaparin Sodium (Lovenox) 40 mg SC DAILY [facility] PRN Reason: Protocol Last Admin: 09/10/16 10:03 Dose: 40 mg Gabapentin (Neurontin) 100 mg PO TID [facility] PRN Reason: Protocol Last Admin: 09/09/16 19:35 Dose: Not Given Insulin Detemir (Levemir) 34 unit SC HS [facility] Last Admin: 09/09/16 22:07 Dose: Not Given Insulin Human Lispro (Humalog Low) 0 units SC ACHS [facility] PRN Reason: Protocol Last Admin: 09/10/16 12:58 Dose: Not Given Insulin Human Lispro (Humalog) 10 units SC AC [facility] Last Admin: 09/09/16 17:00 Dose: Not Given Lisinopril (Zestril) 40 mg PO DAILY [facility] Last Admin: 09/09/16 10:12 Dose: Not Given Lorazepam (Ativan) 0.5 mg PO TID PRN; Protocol PRN Reason: Anxiety Last Admin: 09/09/16 13:20 Dose: 0.5 mg Metoprolol Tartrate (Lopressor) 75 mg PO BID [facility] Last Admin: 09/09/16 19:34 Dose: Not Given Ondansetron HCl (Zofran Odt) 4 mg PO Q8 PRN PRN Reason: Nausea/Vomiting Last Admin: 09/08/16 22:50 Dose: 4 mg Pantoprazole Sodium (Protonix Ec Tab) 40 mg PO 0630 [facility] Last Admin: 09/09/16 06:28 Dose: 40 mg Polyethylene Glycol (Miralax) 17 gm PO DAILY [facility] Last Admin: 09/09/16 10:11 Dose: Not Given - Labs Labs: 09/10/16 07:00 09/10/16 07:00 PT 10.6 Seconds (9.9-11.8) 09/03/16 19:25 INR 0.98 (0.93-1.08) 09/03/16 19:25 APTT 26.1 Seconds (23.7-30.8) 09/03/16 19:25 Attending/Attestation - Attestation I have personally seen and examined this patient.: Yes I have fully participated in the care of the patient.: Yes I have reviewed all pertinent clinical information, including history, physical exam and plan: Yes Notes (Text): I have seen and examined patient at bedside. This is 61 year old female with history of poorly controlled IDDM, HTN, HLD, prior CVA with residual RLE weakness who got admitted 3 weeks ago and found to have hypertensive encephalopathy. She was discharged to rehab and from there when she went home, she had generalized weakness and fell couple of times. CT head did not reveal any acute stroke. BP improved. Patient also appears depressed. Today patient is more alert, awake, nodding her head, following simple commands. Today she was able to tell me her . MRI brain was done which showed acute infarcts in right morris radiata and small lacunar type infarct in right thalamus and both cerebellar hemisphere. Discussed with neurologist. TPA was not given. Patient got transferred to telemetry. Will make patient npo until speech and swallow eval is done. Neuro checks will be done. Will give aspirin suppository. Will repeat echocardiogram and obtain cardiology consult. PT recommended [facility] vs [facility]. Dr Brunilda Jose
[2016-09-09] MEDS: POLYETHYLENE GLYCOL 3350 17 GM/Dose PACKET PO SCH (10:11)
[2016-09-09] MEDS: Enoxaparin 40 mg Syringe SC SCH (10:58)
--- NOTE | 2016-09-09 11:48 | PN ---
DATE: 09/09/2016 Shortly, the patient is 61 years old, a female with self-reported history of depression, no history o f suicidal attempts, no history of admissions to the psychiatric inpatient unit. The patient has mul tiple medical issues, history of a stroke. The patient was admitted on the medical floor for difficu lty walking, not speaking and altered mental status. As per Emergency Room report, family was concer je that patient had altered mental status. The patient was in rehab and she was able to communicate her needs and altered mental status was something new. The patient was admitted on the medical floo r on 09/03/2016. Psych consult was called for evaluation of possible mood symptoms as well as the prisca lópez has history of depression and this magazine writer initiated Elavil last admission, which took place in [facility] at the beginning of August. It was on 08/11/2016. The patient initially was s een by Dr. Luke this admission. The patient was able to say that she is depressed and Dr. Luke con tinued Elavil 50 mg at the nighttime. This magazine writer took over and started following the patient up on this Tuesday. This magazine writer is very familiar with this patient from the previous admission where ulysses berry was able to talk, was able to say that she has previous history of mental illness, major depressiv e disorder, was on any psychotropic medication back . On this admission, the patient is not ab le to communicate. The patient is nodding her head and has only 1-word answers and patient is whispe ring. As per yesterday's evaluation, patient was confused at the morning time. The patient did not know where she was and has alternation of being restless and trying to climb off the bed as well as f eeling deeply sedated and sleeping for hours. This magazine writer increased the dose of Elavil yesterday. T he patient was seen today for followup. The patient presented to be alert and less sedated compared to yesterday. The patient had fair eye contact, but was not able to express her needs. The patient was able to nod her head as well as nodded her head that she had difficulty to express herself. The patient also reported that she is depressed, but denied any thoughts of killing herself or others. T he patient denied hearing voices, denied seeing things. Besides that, no additional information is p hysically able to obtain. VITAL SIGNS: Stable. Blood pressure is 141/75, temperature 98.2, pulse 63, respirations 18, oxygen saturation is 97. MEDICATIONS: Reviewed. The patient is on Tylenol, DuoNeb, El[facility]il [facility], Norvasc, aspirin, Lipitor, Catapres, Lovenox, Neurontin 100 mg 3 times a day, Levemi r 34 units subcutaneously scheduled, Humalog, Zestril, Ativan, Lopressor, Zofran, Protonix, MiraLax. LABORATORY DATA: Labs were reviewed from today: Hemoglobin and hematocrit 11.5 and 35.3. Coagulati on reviewed. Chemistry reviewed. BUN is 29, random glucose is 132. Urinalysis showed small blood a nd protein is 100. Toxicology is negative for any substances. Reports reviewed. This magazine writer had prolonged conversation with medical team yesterday with Dr. Emily estrella and with medical i d sales today. From the medical perspective, the patient is doing much better. Vital signs are under control and neurology team signed off from this case. MENTAL STATUS EXAMINATION: As this magazine writer described above, patient was more alert to compare with . The patient had episodes of trying to climb off the bed and it was over at the nighttime. At the same time, the patient got Ativan yesterday at 11:50. Fair eye contact. Speech, the patient had difficulties to express herself. Mood described as depressed. Affect was constricted. By the e nd of interview, the patient tried to smile towards this magazine writer. Thought process seems to be goal di rected. Thought content: The patient denied hearing voices, denied seeing things, adamantly denied thoughts of killing herself or others. Insight and judgment are improving. Impulses are unpredictab le. IMPRESSION: Most likely the patient had delirium. The patient was confused yesterday and based on [facility] Emergency Room documentation, the patient was able to express herself while she was in subacute re hab and patient had altered mental status prior to coming to the hospital, and the patient also had d ifficulty to ambulate. This fact gives this magazine writer impression most likely patient is having altered mental status due to delirium. The patient has history of major depressive disorder. The patient is on Elavil at present moment, 75 mg at the nighttime. The patient has multiple medical issues includ ing diabetes, hypertension, hyperlipidemia, history of CVA with residual right lower extremity weakne ss. PLAN: Continue current management. Mental status is improving. Yesterday, patient was confused, di d not know where she was. Today, patient knew that she is in the hospital. The patient should alex nue physical therapy as well as continue Elavil 75 mg at the nighttime. Continue current medications . If the patient wants to go to subacute rehab, there is no objection over that. The patient is not suicidal, not homicidal. The patient is not aggressive and not psychotic. At present moment, this magazine writer would recommend for the patient to go to subacute rehab and then to stay into the psychiatric inpatient unit. Will follow up and advise accordingly. Family involvement is recommended. As per m michaelical team, the patient is scheduled for MRI of the brain. We will follow up and advise accordingly . Usually delirium takes up to 1 week to clear up. At the same time, if patient would have major de pressive disorder with catatonia, she would be improving on Ativan while she is on the medical floor. Should you have any questions, give me a call back. Case was discussed with the medical team in [facility]. Mini mental status examination was not done because the patient was not responding to the ques tions. Flores Perdue MD cc: [id number] TT: 09/09/2016 11:47:30 Confirmation # [id number] Dictation # [id number]
--- NOTE | 2016-09-09 16:32 | MRI ---
PROCEDURE: MRI BRAIN WITHOUT CONTRAST HISTORY: r/o cva COMPARISON: None. TECHNIQUE: Multiplanar, multisequence MR images of the brain were obtained without intravenous contrast enhancement. The study was degraded by motion artifact FINDINGS: HEMORRHAGE: None DWI: There is an acute infarct in the right morris radiata measuring 15 x 35 mm as seen on diffusion image 17 series 3. There is also a small 3 mm infarct in the right thalamus image 15. Small infarcts are also seen in both cerebellar hemispheres images 5 and 6. BRAIN PARENCHYMA: No mass effect or edema. Chronic microvascular changes are seen. VENTRICLES: Unremarkable. No hydrocephalus. CRANIUM: Unremarkable. ORBITS: Grossly unremarkable. PARANASAL SINUSES/MASTOIDS: Clear VASCULAR SYSTEM: Skull base flow voids intact. OTHER FINDINGS: None. IMPRESSION: Acute infarct in the right morris radiata and small lacunar-type infarcts in the right thalamus and in both cerebellar hemispheres.
[2016-09-09] MEDS ORDERED: Metoprolol 1 mg/ml Inj IVP SCH (20:00)
[2016-09-09] MEDS: Insulin Detemir 100 units/ml Vial (Levemir) SC SCH (22:07)
[2016-09-10 07:26] LABS: ADD MANUAL DIFF? NO
[2016-09-10 07:38] LABS: BASO # 0.06 K/mm3 (0.0-2.0); BASO % 0.7 % (0.0-3.0); EOS # 0.3 (0.0-0.7); EOS % 3.8 % (1.5-5.0); GRAN # 5.22 (1.4-6.5); GRAN % 60.4 % (50.0-68.0); HEMATOCRIT 38.3 % (36.0-48.0); LYMPH # 2.6 (1.2-3.4); LYMPH % 30.6 % (22.0-35.0); MEAN CELL VOLUME 83.8 fL (80.0-105.0); MEAN CORPUSCULAR HEMOGLOBIN 27.1 pg (25.0-35.0); MEAN CORPUSCULAR HGB CONC 32.4 g/dl (31.0-37.0); MEAN PLATELET VOLUME 10.3 fl (7.0-11.0); MONO # 0.4 (0.1-0.6); MONO % 4.5 % (1.0-6.0); PLATELET COUNT 309 10^3/uL (120.0-450.0); RED CELL DISTRIBUTION WIDTH 13.7 % (11.5-14.5); WHITE BLOOD COUNT 8.6 10^3/ul (4.5-11.0)
[2016-09-10] MEDS: Insulin Lispro (humaLOG) LOW Coverage SC SCH ×4 (07:50→23:27)
[2016-09-10 07:58] LABS: ALB/GLOB RATIO 1.2 (1.1-1.8); ALKALINE PHOSPHATASE 118 U/L (38-133); ALT/SGPT 18 U/L (7-56); AST/SGOT 22 U/L (15-39); BILIRUBIN,TOTAL 0.5 mg/dL (0.2-1.3); BLOOD UREA NITROGEN 30 mg/dL (7-21); CALCIUM 9.4 mg/dL (8.4-10.5); CARBON DIOXIDE 22 mmol/L (21-33); CHLORIDE 106 mmol/L (95-110); GFR AFRICAN-AMERICAN > 60; GLUCOSE,RANDOM 175 mg/dL (70-110); POTASSIUM 4.4 mmol/L (3.6-5.0); SODIUM 144 mmol/L (132-148); TOTAL PROTEIN 7.6 g/dL (5.8-8.3)
[2016-09-10 09:23] LABS: TROPONIN I < 0.01 ng/mL
--- NOTE | 2016-09-10 09:54 | PN ---
DATE: 09/10/2016 Shortly, the patient is a 61-year-old female with history of depression. No history of suicidal atte mpts, no history of admissions onto the psychiatric inpatient unit. The patient has multiple medical issues. A history of a stroke, and the patient has newly diagnosed acute infarct of the right morris radiata and lacunar-type infarct in the right thalamus, and both ce rebellar hemispheres which was confirmed by MRI which was done yesterday. The patient also has histo ry of hypertension, diabetes. Initially, psych consult was called for evaluation of possible depression. This insurance underwriter adjusted Elav il yesterday to 75 mg at nighttime. Going back to the patient's presentation, 1 month ago the patient presented to be able communicate, w as able to provide history. Right now the patient is mute and presented with psychomotor retardation , as well as not communicate, and sleeping majority of the time, and this is acute deviation from the patient's baseline mental status. This insurance underwriter attempted to speak to the patient. The patient was d eeply sleeping. This insurance underwriter was not able to wake the patient up. Will discuss the case with nursing staff. As per nursing staff, the patient is n.p.o. and waiting fo r speech and swallow, as well as Dr. Figueroa will be called back again. The patient does not have any signs of agitation or aggression. VITAL SIGNS: Reviewed. Temperature 98, pulse is 75, blood pressure 138/102, respiration 20, oxygen saturation is 100. MEDICATIONS: Reviewed. Tylenol, DuoNeb, Norvasc, aspirin, Lipitor, Catapres, Plavix, Vasotec, Loven ox, Neurontin, Levemir, Humalog, Zestril, Ativan as needed for anxiety, Lopressor p.o. and IV as need ed, Zofran, Protonix, and MiraLax. LABORATORY DATA: Reviewed. Most recent was from today: WBCs of 8.6, hemoglobin 12.4, hematocrit 38 .3. Chemistry reviewed from today: BUN 30, random glucose 175. Urine analysis on 09/03, and MRI of the brain was done yesterday. IMPRESSION: Acute infarct of the right morris radiata, and small lacunar-type infarct in the right t halamus and in both cerebellar hemispheres. MENTAL STATUS EXAMINATION: The patient is deeply sleeping. I was not able to perform mental status examination. Mini mental exam is not able to be performed because the patient is deeply sleeping. IMPRESSION: The patient is having hypoactive delirium. The patient was newly diagnosed with acute i nfarct of the right morris radiata and small lacunar-type infarct of the right thalamus and both cere bellar hemispheres. The patient has history of hypertension, diabetes, history of falls and difficul ty to ambulate. PLAN: Continue current management. The patient is still deeply sleeping. The patient presented to have hypoactive delirium, as well as some psychomotor retardation. From this insurance underwriter's perspective, d epression is least concern at present moment. Elavil will be on hold. Continue all of the medicatio ns. This insurance underwriter suggests followup with neurologist, Dr. Figueroa. This insurance underwriter will follow up on this patient every other day today to make sure that the patient is improving with her mental status. Spe ech and swallow evaluation is ordered by medical team. Should you have any questions, give me a call back. Thank you very much for letting me participate in care of your patient. Flores Perdue MD cc: [id number] TT: 09/10/2016 09:54:12 Confirmation # [id number] Dictation # [id number] jn
[2016-09-10] MEDS ORDERED: Insulin Detemir 100 units/ml Vial (Levemir) SC ONE (10:00)
[2016-09-10] MEDS ORDERED: EnalaprilAT 1.25 mg/ml Inj IVP SCH ×2 (10:00)
[2016-09-10] MEDS: Enoxaparin 40 mg Syringe SC SCH (10:03)
--- NOTE | 2016-09-10 10:17 | RAD ---
HISTORY: chest pain COMPARISON: 09/03/2016 FINDINGS: LUNGS: No active pulmonary disease. PLEURA: No significant pleural effusion identified, no pneumothorax apparent. CARDIOVASCULAR: Normal. OSSEOUS STRUCTURES: No significant abnormalities. VISUALIZED UPPER ABDOMEN: Normal. OTHER FINDINGS: None. IMPRESSION: No active disease.
--- NOTE | 2016-09-10 11:52 | CP.PCM.PN ---
<Yann Prakash - Last Filed: 09/10/16 17:00> Subjective - Date & Time of Evaluation Date of Evaluation: 09/10/16 Time of Evaluation: 07:30 - Subjective Subjective: 61 yo female with hx of a htn, dm2, & stroke presented to the ED. Per family, approximately 3 weeks ago pt had an acute change in mental status. CT 08/08 showed no acute infarct, CT on 09/03 showed no evidence of acute intracranial abdnormality. MRI on 09/08 showed acute infarct. Today, patient is presenting the same as she has for the last 6 days. She is awake and able to answer yes/no questions. She complains of chest pain on inspiration. She denies headache, difficulty breathing, or abdominal pain. EKG, CXR, and trops x1 were ordered and were negative. Objective - Vital Signs/Intake and Output Vital Signs (last 24 hours): Temp Pulse Resp BP Pulse Ox 98.0 F 75 20 150/70 100 09/10/16 05:49 09/10/16 06:00 09/10/16 05:49 09/10/16 10:03 09/10/16 05:49 Intake and Output: 09/10/16 09/10/16 06:59 18:59 Intake Total 20 Balance 20 - Medications Medications: Current Medications Acetaminophen (Tylenol 325mg Tab) 650 mg PO Q4H PRN PRN Reason: Headache Last Admin: 09/09/16 00:40 Dose: 650 mg Albuterol/Ipratropium (Duoneb 3 Mg/0.5 Mg (3 Ml) Ud) 3 ml IH [id number] PRN PRN Reason: Shortness of Breath Amlodipine Besylate (Norvasc) 10 mg PO DAILY [facility] Last Admin: 09/09/16 10:11 Dose: Not Given Aspirin (Aspirin) 325 mg PO DAILY [facility] Last Admin: 09/09/16 19:33 Dose: Not Given Aspirin (Aspirin Supp) 300 mg RC DAILY [facility] Last Admin: 09/10/16 10:03 Dose: 300 mg Atorvastatin Calcium (Lipitor) 40 mg PO DIN [facility] Last Admin: 09/09/16 19:34 Dose: Not Given Clonidine HCl (Catapres) 0.1 mg PO BID [facility] Last Admin: 09/09/16 19:33 Dose: Not Given Clopidogrel Bisulfate (Plavix) 75 mg PO DAILY [facility] Enalaprilat (Vasotec Iv) 1.25 mg IVP DAILY [facility] Last Admin: 09/10/16 10:03 Dose: 1.25 mg Enoxaparin Sodium (Lovenox) 40 mg SC DAILY [facility] PRN Reason: Protocol Last Admin: 09/10/16 10:03 Dose: 40 mg Gabapentin (Neurontin) 100 mg PO TID [facility] PRN Reason: Protocol Last Admin: 09/09/16 19:35 Dose: Not Given Insulin Detemir (Levemir) 34 unit SC HS [facility] Last Admin: 09/09/16 22:07 Dose: Not Given Insulin Human Lispro (Humalog Low) 0 units SC ACHS [facility] PRN Reason: Protocol Last Admin: 09/10/16 07:50 Dose: Not Given Insulin Human Lispro (Humalog) 10 units SC AC [facility] Last Admin: 09/09/16 17:00 Dose: Not Given Lisinopril (Zestril) 40 mg PO DAILY [facility] Last Admin: 09/09/16 10:12 Dose: Not Given Lorazepam (Ativan) 0.5 mg PO TID PRN; Protocol PRN Reason: Anxiety Last Admin: 09/09/16 13:20 Dose: 0.5 mg Lorazepam (Ativan) 0.5 mg IVP Q8 PRN; Protocol PRN Reason: Anxiety Metoprolol Tartrate (Lopressor) 75 mg PO BID [facility] Last Admin: 09/09/16 19:34 Dose: Not Given Metoprolol Tartrate (Lopressor) 5 mg IVP Q6 [facility] Ondansetron HCl (Zofran Odt) 4 mg PO Q8 PRN PRN Reason: Nausea/Vomiting Last Admin: 09/08/16 22:50 Dose: 4 mg Pantoprazole Sodium (Protonix Ec Tab) 40 mg PO 0630 [facility] Last Admin: 09/09/16 06:28 Dose: 40 mg Polyethylene Glycol (Miralax) 17 gm PO DAILY [facility] Last Admin: 09/09/16 10:11 Dose: Not Given - Labs Labs: 09/10/16 07:00 09/10/16 07:00 PT 10.6 Seconds (9.9-11.8) 09/03/16 19:25 INR 0.98 (0.93-1.08) 09/03/16 19:25 APTT 26.1 Seconds (23.7-30.8) 09/03/16 19:25 - Constitutional Appears: Non-toxic, No Acute Distress - Head Exam Head Exam: ATRAUMATIC, NORMOCEPHALIC - Eye Exam Eye Exam: EOMI - ENT Exam ENT Exam: Mucous Membranes Moist - Neck Exam Neck Exam: Full ROM - Respiratory Exam Respiratory Exam: Clear to Ausculation Bilateral, NORMAL BREATHING PATTERN - Cardiovascular Exam Cardiovascular Exam: REGULAR RHYTHM, RRR, +S1, +S2. absent: JVD - GI/Abdominal Exam GI & Abdominal Exam: Soft, Normal Bowel Sounds. 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 head negative on and 09/03, MRI positive for acute stroke on 09/09, transferred to telemetry, neurology and cardiology notified. Plan: AMS likely due to stroke - Possible delirium - Ativan 1mg PO prn - Neuro consult - Dr. Akhil Figueroa, recs appreciated -AMS is more delirium, EEG showed baseline cognitive defects, no seizure, previous MRI reviewed, current CT negative for acute abnormality - MRI 03/03/16 two acute infarcts in the left cerbral hemisphere(left frontal lobe and basal ganglia), please see full report - CT 08/08/16 no acute infarct and old BL basal ganglia and morris radiata lacunar infarcts, please see full report - CT 09/03/16 no evidence of acute intracranial abdnormality, please see full report - MRI 09/09 -Acute infarct in the right morris radiata and small lacunar-type infarcts in the right thalamus and in both cerebellar hemispheres, please see full report -Pt. made NPO put PO meds on hold -Swallow eval ordered, pt. passed today, restarted PO meds -Pt. put on ASA 325 and Plavix 75mg -Cario Consult - Dr. Han -Echocardiogram -Carotid Duplex Venous Doppler -PT/OT therapy HTN - uncontrolled - Norvasc 10 daily - lopressor to 75mg BID - lisinopril to 40 daily - Clonidine .1mg q6 prn - added Clonidine .1mg BID - Systolic BP in the 130's to 170's - will continue to adjust meds to optimize pressures Chest Pain 09/10 - EKG tacycarida, possible old infarct - CXR No Active disease - Trop x 1 "negative" IDDM poor control - Levemr 34 HS - 10 humalog TID - ISSS , - peripheral neuropathy, a1c 12.6 (Jul 2016) - sugars 187 - 207 Diabetic neuropathy - neurontin 100 tid History of Falls - Deconditioning vs HTN encephalopathy vs orthostatic hypotention - orthostatic vitals ordered - physical therapy consult ordered -PT recommends [facility] vs [facility] - Hip x ray - no acute fracture or dislocation, see full report - CT face to r/o fracture - no acute nasal bone or maxillofacial fracture, see full report - CT Head -No CT evidence of acute intracranial abnormality, evidence of old lacunar infarcts, see full report Depression Psych consult, Dr. Luke, appreciate recs Psych consult, Dr. Tanner, appreciate recs -will reevaluate tomorrow for possible admit to psych, pt. currently not engaging and possibly selective mute. -HOLD Elavil -Ativan .5mg TID PRN HLD hx CVA w/ right LE residual deficit & aphasia; per family 3 weeks ago - ASA, lipitor 40 Right ankle pain Xray 3 view right -no acute fracture, please see full report Constipation - miralax Prophylaxis - protonix, lovenox, zofran prn <Brunilda Jose B - Last Filed: 09/11/16 12:22> Objective - Vital Signs/Intake and Output Vital Signs (last 24 hours): Temp Pulse Resp BP Pulse Ox 97.8 F 82 20 174/95 H 99 09/11/16 06:00 09/11/16 10:08 09/11/16 06:00 09/11/16 10:08 09/11/16 06:00 Intake and Output: 09/11/16 09/11/16 06:59 18:59 Intake Total 180 Balance 180 - Medications Medications: Current Medications Acetaminophen (Tylenol 325mg Tab) 650 mg PO Q4H PRN PRN Reason: Headache Last Admin: 03/30/17 00:40 Dose: 650 mg Albuterol/Ipratropium (Duoneb 3 Mg/0.5 Mg (3 Ml) Ud) 3 ml IH [id number] PRN PRN Reason: Shortness of Breath Amlodipine Besylate (Norvasc) 10 mg PO DAILY [facility] Last Admin: 09/11/16 10:08 Dose: 10 mg Aspirin (Aspirin) 325 mg PO DAILY [facility] Last Admin: 09/11/16 10:03 Dose: 325 mg Atorvastatin Calcium (Lipitor) 40 mg PO DIN [facility] Last Admin: 09/09/16 19:34 Dose: Not Given Clonidine HCl (Catapres) 0.1 mg PO BID [facility] Last Admin: 09/11/16 10:03 Dose: 0.1 mg Clopidogrel Bisulfate (Plavix) 75 mg PO DAILY [facility] Last Admin: 09/11/16 10:03 Dose: 75 mg Enoxaparin Sodium (Lovenox) 40 mg SC DAILY [facility] PRN Reason: Protocol Last Admin: 09/11/16 10:04 Dose: 40 mg Gabapentin (Neurontin) 100 mg PO TID [facility] PRN Reason: Protocol Last Admin: 09/11/16 10:03 Dose: 100 mg Insulin Detemir (Levemir) 34 unit SC HS [facility] Last Admin: 09/10/16 23:26 Dose: 34 unit Insulin Human Lispro (Humalog Low) 0 units SC ACHS [facility] PRN Reason: Protocol Last Admin: 09/11/16 11:51 Dose: 2 units Insulin Human Lispro (Humalog) 10 units SC AC [facility] Last Admin: 09/11/16 11:50 Dose: 10 units Lisinopril (Zestril) 40 mg PO DAILY [facility] Last Admin: 09/11/16 10:08 Dose: 40 mg Lorazepam (Ativan) 0.5 mg PO TID PRN; Protocol PRN Reason: Anxiety Last Admin: 09/09/16 13:20 Dose: 0.5 mg Metoprolol Tartrate (Lopressor) 75 mg PO BID [facility] Last Admin: 09/11/16 10:04 Dose: 75 mg Ondansetron HCl (Zofran Odt) 4 mg PO Q8 PRN PRN Reason: Nausea/Vomiting Last Admin: 09/08/16 22:50 Dose: 4 mg Pantoprazole Sodium (Protonix Ec Tab) 40 mg PO 0630 [facility] Last Admin: 09/11/16 06:38 Dose: 40 mg Polyethylene Glycol (Miralax) 17 gm PO DAILY [facility] Last Admin: 09/11/16 10:04 Dose: 17 gm - Labs Labs: 09/11/16 06:20 09/11/16 06:20 PT 10.6 Seconds (9.9-11.8) 09/03/16 19:25 INR 0.98 (0.93-1.08) 09/03/16 19:25 APTT 26.1 Seconds (23.7-30.8) 09/03/16 19:25 Attending/Attestation - Attestation I have personally seen and examined this patient.: Yes I have fully participated in the care of the patient.: Yes I have reviewed all pertinent clinical information, including history, physical exam and plan: Yes Notes (Text): I have seen and examined patient at bedside. This is 61 year old female with history of poorly controlled IDDM, HTN, HLD, prior CVA with residual RLE weakness who got admitted 3 weeks ago and found to have hypertensive encephalopathy. She was discharged to rehab and from there when she went home, she had generalized weakness and fell couple of times. CT head did not reveal any acute stroke. BP improved. Patient also appears depressed. Today, no overnight issues were reported. Patient behavior is the same. Able to follow commands and talks minimally. MRI brain showed acute infarcts in right morris radiata and small lacunar type infarct in right thalamus and both cerebellar hemisphere. 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 Speech and swallow eval was done today. All po meds will be restarted. Continue neurochecks. Echo pending. Cardiology consult appreciated. PT recommended [facility] vs [facility]. Dr Brunilda Jose
[2016-09-10] MEDS ORDERED: Metoprolol 1 mg/ml Inj IVP SCH (12:00)
--- NOTE | 2016-09-10 14:16 | CARD ---
APPROVED REPORT EKG Measurement Heart [id number] <Conclusion> Sinus tachycardia Possible Inferior infarct, age Probably Old.
[2016-09-10 17:23] LABS: TROPONIN I < 0.01 ng/mL
--- NOTE | 2016-09-10 17:23 | CON ---
DATE: 09/10/2016 REASON FOR CONSULTATION: Acute CVA. HISTORY OF PRESENT ILLNESS: The patient is a 61-year-old female who has history of hyperten ariel, diabetes mellitus, peripheral neuropathy, history of recent CVA with residual right-sided weakn ess. Was recently released from rehab home to be readmitted because of difficulty walking and aphasi a on the of this month. Brain MRI reported acute infarct in the right morris radiata and a smal l lacunar type infarct in the right thalamus and in both cerebellar hemispheres. The patient has ___ _ and does not communicate verbally with me. She does follow some commands, allowing me to examine h er. MEDICATIONS: Aspirin 325 mg once a day is on hold since yesterday, Ativan 0.5 mg t.i.d. p.r.n. for a nxiety, clonidine 0.1 mg twice a day, Levemir 34 units subcutaneously at bedtime, Lipitor 40 mg once a day, Lopressor 75 mg twice a day, Lovenox 40 mg subcutaneous once a day, Neurontin 100 mg t.i.d., N orvasc 10 mg once a day, Plavix 75 mg once a day, Protonix 40 mg once a day, Zestril 40 mg once a day , Zofran 4 mg p.o. q.4 hours p.r.n. REVIEW OF SYSTEMS: No reported ventricular arrhythmia on the monitor, no reported hypertension and n o reported seizure activity. PHYSICAL EXAMINATION: GENERAL: The patient is a middle-aged female who does not appear to be in acute distress. VITAL SIGNS: Blood pressure 150/70, heart rate 75, temperature 98, respirations 20. HEENT: No pallor or icterus. NECK: No JVD. CHEST: Clear. HEART: S1, S2 regular. ABDOMEN: Soft. EXTREMITIES: No edema. LABORATORY DATA: Today's CBC is completely within normal limit. SMA-7 is within normal limit except for glucose of 175 and BUN of 30. One set of troponin is less than 0.01. Lipid profile and TSH lev el are within normal limit. Chest x-ray revealed mild cardiomegaly. EKG revealed sinus tachycardia at rate of 105, inferior Q-waves were noted. ASSESSMENT: 1. Recurrent cerebrovascular accident with acute infarction in the right morris radiata and small la cunar type infarcts in the right thalamus and both cerebellar hemispheres. Rule out embolic event. 2. Hypertension. 3. Uncontrolled diabetes mellitus. RECOMMENDATIONS: Continue current Lopressor 75 mg twice a day, clonidine 0.1 mg twice a day, Norvasc 10 mg once a day, subcutaneous Lovenox at 40 mg once a day, Zestril at 40 mg once a day, Lipitor at 40 mg once a day. I will review the echocardiograph study performed today. Antwan Han MD cc: [id number] TT: 09/10/2016 17:23:20 Confirmation # [id number] Dictation # [id number] sn
--- NOTE | 2016-09-10 18:41 | PN ---
DATE: 09/10/2016 This is a 61-year-old female with past medical history of diabetes, hypertension, hyperlipid emia. The patient has right morris radiata new stroke and also residual weakness of the right lower extremity from a previous stroke, and patient is also dysphasic, follows some simple commands. PHYSICAL EXAMINATION: HEENT: Normocephalic, atraumatic. NECK: Supple. NEUROLOGIC: Awake, oriented to self, not place and person, and aphasic. Cranial nerves II through X II were tested. Spontaneous movement of the extremities noted. Deep tendon reflexes 1+. Plantars d owngoing. Sensory appears intact. Cerebellar gait is deferred. IMPRESSION AND PLAN: New stroke and old, and acute infarct in the right morris radiata, small lacuna r type infarct in the right thalamus and in both cerebellar hemispheres. The patient's workup in prog ress. We will follow up and Dr. Han, the wrapper sizer on the case. Uncontrolled diabetes and hypertension. Continue present management. We will follow up. Echo was ordered. Sarmad Figueroa MD cc: [id number] TT: 09/10/2016 18:40:48 Confirmation # [id number] Dictation # [id number] jhon
--- NOTE | 2016-09-10 19:41 | CARD ---
APPROVED REPORT EXAM: Two-dimensional and M-mode echocardiogram with Doppler and color Doppler. INDICATION LVFX 2D DIMENSIONS IVSd1.3 (0.7-1.1cm)LVDd3.7 (3.9-5.9cm) PWd1.4 (0.7-1.1cm)LVDs2.5 (2.5-4.0cm) FS (%) 30.8 %LVEF (%)59.3 (>50%) M-Mode DIMENSIONS Aortic Root3.20 (2.2-3.7cm)Aortic Cusp Exc.1.50 (1.5-2.0cm) Mitral Valve E/A ratio0.0 TDI E/Lateral E'0.0E/Medial E'0.0 Pulmonary Valve PV Peak Bmjabqaq269.0cm/sPV Peak Grad.9mmHg Tricuspid Valve TR Peak [id number]/sRAP [id number] Peak Gr.12mmHg [id number] LEFT VENTRICLE The left ventricle is normal size. There is mild to moderate concentric left ventricular hypertrophy. Proximal septal thickening is noted, With IHSS Physiology. The left ventricular function is normal.EF-55-60% There is normal LV segmental wall motion. Transmitral Doppler flow pattern is Grade III-reversible restrictive diastolic dysfunction. No left ventricle thrombus noted on this study. There is no ventricular septal defect visualized. There is no left ventricular aneurysm. There is no mass noted in the left ventricle. RIGHT VENTRICLE The right ventricle is normal size. There is normal right ventricular wall thickness. The right ventricular systolic function is normal. ATRIA The left atrium is mildly dilated. The right atrium size is normal. The interatrial septum is intact with no evidence for an atrial septal defect. AORTIC VALVE The aortic valve is mildly thickened but opens well. The aortic valve is moderately sclerotic. There is mild to moderate aortic regurgitation. There is no aortic valvular stenosis. There is no aortic valvular vegetation. MITRAL VALVE The mitral valve is thickened but opens well. Mitral regurgitation is trace to mild. There is no mitral valve stenosis. There is no evidence of mitral valve prolapse. TRICUSPID VALVE The tricuspid valve leaflets are thickened , but open well. There is trace tricuspid regurgitation.RVSP-22 mmof Hg There is no tricuspid valve stenosis. There is no tricuspid valve prolapse or vegetation. PULMONIC VALVE The pulmonic valve is borderline thickened. There is trace pulmonic valvular regurgitation. There is no pulmonic valvular stenosis. GREAT VESSELS N/A N/A N/A N/A PERICARDIAL EFFUSION N/A N/A <Conclusion> The left ventricle is normal size. There is mild to moderate concentric left ventricular hypertrophy. Proximal septal thickening is notedWith IHSS physiology There is mild to moderate aortic regurgitation. Mitral regurgitation is trace to mild. There is trace tricuspid regurgitation.RVSP-22 mmof Hg N/A N/A Gradient across LVOt colud not be obtained(N/A). Study was stopped in Middle as pt became un copertative. Pl repeat study to complete when pt become more sobber and co-operative.
[2016-09-10] MEDS: Insulin Detemir 100 units/ml Vial (Levemir) SC SCH (23:26)
[2016-09-11 06:31] LABS: ADD MANUAL DIFF? NO
[2016-09-11 06:37] LABS: BASO # 0.09 K/mm3 (0.0-2.0); EOS # 0.4 (0.0-0.7); EOS % 4.4 % (1.5-5.0); GRAN # 4.77 (1.4-6.5); GRAN % 55.6 % (50.0-68.0); HEMATOCRIT 36.4 % (36.0-48.0); LYMPH % 34.3 % (22.0-35.0); MEAN CELL VOLUME 83.9 fL (80.0-105.0); MEAN CORPUSCULAR HEMOGLOBIN 27.6 pg (25.0-35.0); MEAN PLATELET VOLUME 10.1 fl (7.0-11.0); MONO # 0.4 (0.1-0.6); MONO % 4.7 % (1.0-6.0); PLATELET COUNT 295 10^3/uL (120.0-450.0); RED CELL DISTRIBUTION WIDTH 13.7 % (11.5-14.5); WHITE BLOOD COUNT 8.6 10^3/ul (4.5-11.0)
[2016-09-11] MEDS: Pantoprazole 40 mg EC Tab PO SCH (06:38)
[2016-09-11 06:44] LABS: ALB/GLOB RATIO 1.1 (1.1-1.8); ALKALINE PHOSPHATASE 97 U/L (38-133); ALT/SGPT 18 U/L (7-56); AST/SGOT 15 U/L (15-39); BILIRUBIN,TOTAL 0.5 mg/dL (0.2-1.3); BLOOD UREA NITROGEN 30 mg/dL (7-21); CARBON DIOXIDE 26 mmol/L (21-33); CHLORIDE 106 mmol/L (98-107); GFR AFRICAN-AMERICAN > 60; GLUCOSE,RANDOM 124 mg/dL (70-110); POTASSIUM 4.1 mmol/L (3.6-5.0); SODIUM 142 mmol/L (132-148)
[2016-09-11] MEDS: Insulin Lispro 1 UNITS/0.01 ML SC SCH ×3 (07:51→16:56)
[2016-09-11] MEDS: Insulin Lispro (humaLOG) LOW Coverage SC SCH ×4 (07:52→23:17)
[2016-09-11] MEDS: POLYETHYLENE GLYCOL 3350 17 GM/Dose PACKET PO SCH (10:04)
[2016-09-11] MEDS: Enoxaparin 40 mg Syringe SC SCH (10:04)
--- NOTE | 2016-09-11 13:46 | PN ---
DATE: 09/11/2016 The patient does not verbalize; however, she follows my commands during my examination and when asked about chest pain, she gestured with her head negatively. PHYSICAL EXAMINATION: VITAL SIGNS: Blood pressure 150/94, heart rate 77, temperature 97.8, respirations 20. HEENT: Normocephalic. NECK: No JVD. CHEST: Clear. HEART: S1, S2 regular. EXTREMITIES: No edema. LABORATORIES: Today's SMA-7 is within normal limits except for glucose of 124 and BUN of 30. Today' s CBC is within normal limits. ASSESSMENT: 1. Recurrent cerebrovascular accident with acute infarction in the right morris radiata and a small lacunar type infarct in the right thalamus and both cerebellar hemispheres. 2. Hypertension. 3. Uncontrolled diabetes mellitus. RECOMMENDATIONS: Continue current aspirin 325 mg once a day, clonidine 0.1 mg twice a day, Lipitor a t 40 mg once a day, subcutaneous Lovenox at 40 mg once a day, Norvasc at 10 mg once a day, Plavix 75 mg once a day, Zestril at 40 mg once a day. Yesterday's echocardiographic study reported proximal se ptal thickening with IHSS physiology with mild to moderate aortic regurgitation, no obtainable readin g across the left ventricular outflow tract. The study was not complete because of the patient's unc ooperativeness and the plan is to repeat the echocardiographic study at a later date. The ejection f raction was within normal limits and there was no left ventricular aneurysm and the left atrium is mi ldly dilated. Antwan Han MD cc: [id number] TT: 09/11/2016 13:46:09 Confirmation # [id number] Dictation # [id number] tn
--- NOTE | 2016-09-11 14:55 | CP.PCM.PN ---
<Ashish Mobley - Last Filed: 09/11/16 20:54> Subjective - Date & Time of Evaluation Date of Evaluation: 09/11/16 Time of Evaluation: 08:25 - Subjective Subjective: Dr. Mobley PGY 1 Hospitalist Note Patient seen and evaluated at bedside with attending present. She is awake, eating breakfast, and able to answer yes/no questions but is slow to response and speaks softly. She is tolerating her diet well. She notes some right leg discomfort but is able to move all four extremities in the bed. She denies any fever,chills, nausea, vomiting, chest pain, or SOB. Objective - Vital Signs/Intake and Output Vital Signs (last 24 hours): Temp Pulse Resp BP Pulse Ox 97.8 F 77 20 150/94 H 98 09/11/16 12:00 09/11/16 12:00 09/11/16 12:00 09/11/16 12:00 09/11/16 09:00 Intake and Output: 09/11/16 09/11/16 06:59 18:59 Intake Total 180 Balance 180 - Medications Medications: Current Medications Acetaminophen (Tylenol 325mg Tab) 650 mg PO Q4H PRN PRN Reason: Headache Last Admin: 09/09/16 00:40 Dose: 650 mg Albuterol/Ipratropium (Duoneb 3 Mg/0.5 Mg (3 Ml) Ud) 3 ml IH [id number] PRN PRN Reason: Shortness of Breath Amlodipine Besylate (Norvasc) 10 mg PO DAILY [facility] Last Admin: 09/11/16 10:08 Dose: 10 mg Aspirin (Aspirin) 325 mg PO DAILY [facility] Last Admin: 09/11/16 10:03 Dose: 325 mg Atorvastatin Calcium (Lipitor) 40 mg PO DIN [facility] Last Admin: 09/09/16 19:34 Dose: Not Given Clonidine HCl (Catapres) 0.1 mg PO BID [facility] Last Admin: 09/11/16 10:03 Dose: 0.1 mg Clopidogrel Bisulfate (Plavix) 75 mg PO DAILY [facility] Last Admin: 09/11/16 10:03 Dose: 75 mg Enoxaparin Sodium (Lovenox) 40 mg SC DAILY [facility] PRN Reason: Protocol Last Admin: 09/11/16 10:04 Dose: 40 mg Gabapentin (Neurontin) 100 mg PO TID [facility] PRN Reason: Protocol Last Admin: 09/11/16 14:23 Dose: Not Given Insulin Detemir (Levemir) 34 unit SC HS [facility] Last Admin: 09/10/16 23:26 Dose: 34 unit Insulin Human Lispro (Humalog Low) 0 units SC ACHS [facility] PRN Reason: Protocol Last Admin: 09/11/16 11:51 Dose: 2 units Insulin Human Lispro (Humalog) 10 units SC AC [facility] Last Admin: 09/11/16 11:50 Dose: 10 units Lisinopril (Zestril) 40 mg PO DAILY [facility] Last Admin: 09/11/16 10:08 Dose: 40 mg Lorazepam (Ativan) 0.5 mg PO TID PRN; Protocol PRN Reason: Anxiety Last Admin: 09/11/16 12:57 Dose: 0.5 mg Metoprolol Tartrate (Lopressor) 75 mg PO BID [facility] Last Admin: 09/11/16 10:04 Dose: 75 mg Ondansetron HCl (Zofran Odt) 4 mg PO Q8 PRN PRN Reason: Nausea/Vomiting Last Admin: 09/08/16 22:50 Dose: 4 mg Pantoprazole Sodium (Protonix Ec Tab) 40 mg PO 0630 [facility] Last Admin: 09/11/16 06:38 Dose: 40 mg Polyethylene Glycol (Miralax) 17 gm PO DAILY [facility] Last Admin: 09/11/16 10:04 Dose: 17 gm - Labs Labs: 09/11/16 06:20 09/11/16 06:20 PT 10.6 Seconds (9.9-11.8) 09/03/16 19:25 INR 0.98 (0.93-1.08) 09/03/16 19:25 APTT 26.1 Seconds (23.7-30.8) 09/03/16 19:25 - Constitutional Appears: Non-toxic, No Acute Distress - Head Exam Head Exam: ATRAUMATIC, NORMOCEPHALIC - Eye Exam Eye Exam: EOMI, Normal appearance, PERRL. absent: Conjunctival injection, Scleral icterus Pupil Exam: NORMAL ACCOMODATION - ENT Exam ENT Exam: Mucous Membranes Moist - Respiratory Exam Respiratory Exam: Clear to Ausculation Bilateral, NORMAL BREATHING PATTERN. absent: Rales, Rhonchi, Wheezes - Cardiovascular Exam Cardiovascular Exam: REGULAR RHYTHM, +S1, +S2. absent: Gallop, Rubs, Murmur - GI/Abdominal Exam GI & Abdominal Exam: Soft, Normal Bowel Sounds. absent: Tenderness - Extremities Exam Extremities Exam: Normal Inspection. absent: Pedal Edema, Tenderness - Neurological Exam Neurological Exam: Alert, Awake - Psychiatric Exam Psychiatric exam: Flat Affect - Skin Skin Exam: Dry, Intact, Warm Assessment and Plan - Assessment and Plan (Free Text) Assessment: 61yo F with PMHx of poorly controlled DM, HTN, HLD, prior CVA with residual RLE weakness and recent change in mental status [address] head negative on and 09/03, MRI positive for acute stroke on 09/09, transferred to telemetry. Neurology and cardiology notified. Plan: AMS likely due to stroke - Possible delirium - Ativan 1mg PO prn - Neuro consult - Dr. kAhil Figueroa, recs appreciated -AMS is more delirium, EEG showed baseline cognitive defects, no seizure, previous MRI reviewed, current CT negative for acute abnormality - MRI 03/03/16 two acute infarcts in the left cerbral hemisphere(left frontal lobe and basal ganglia), please see full report - CT 08/08/16 no acute infarct and old BL basal ganglia and morris radiata lacunar infarcts, please see full report - CT 09/03/16 no evidence of acute intracranial abdnormality, please see full report - MRI 09/09 -Acute infarct in the right morris radiata and small lacunar-type infarcts in the right thalamus and in both cerebellar hemispheres, please see full report - Pt passed swallow eval - Continue ASA 325 and Plavix 75mg - Cardio consult- Dr. Han, help appreciated - Echocardiogram showed : LV noral size with mild to moderate LVH, mild aortic regurg, trace mitral regurg, [see full report] patient not very cooperative - f/u Carotid Duplex Venous Doppler -PT/OT therapy HTN - uncontrolled - Norvasc 10 daily - lopressor to 75mg BID - lisinopril to 40 daily - Clonidine .1mg q6 prn - added Clonidine .1mg BID - Systolic BP in the 130's to 170's - will continue to adjust meds to optimize pressures Chest Pain 09/10 - EKG tacycarida, possible old infarct - CXR No Active disease - Trop x 2 "negative" IDDM poor control - Levemr 34 HS - 10 humalog TID - ISSS , - peripheral neuropathy, a1c 12.6 (Jul 2016) - sugars 187 - 207 Diabetic neuropathy - neurontin 100 tid History of Falls - Deconditioning vs HTN encephalopathy vs orthostatic hypotention - orthostatic vitals ordered - physical therapy consult ordered -PT recommends [facility] vs [facility] - Hip x ray - no acute fracture or dislocation, see full report - CT face to r/o fracture - no acute nasal bone or maxillofacial fracture, see full report - CT Head -No CT evidence of acute intracranial abnormality, evidence of old lacunar infarcts, see full report Depression Psych consult, Dr. Luke, appreciate recs Psych consult, Dr. Tanner, appreciate recs -will reevaluate tomorrow for possible admit to psych, pt. currently not engaging and possibly selective mute. -HOLD Elavil -Ativan .5mg TID PRN HLD hx CVA w/ right LE residual deficit & aphasia; per family 3 weeks ago - ASA, lipitor 40 Right ankle pain Xray 3 view right -no acute fracture, please see full report Constipation - miralax Prophylaxis - protonix, lovenox, zofran prn Assessment and plan discussed with attending <Brunilda Jose - Last Filed: 09/12/16 13:05> Objective - Vital Signs/Intake and Output Vital Signs (last 24 hours): Temp Pulse Resp BP Pulse Ox 98.0 F 53 L 20 106/67 97 09/12/16 12:00 09/12/16 12:00 09/12/16 12:00 09/12/16 12:00 09/12/16 06:00 Intake and Output: 09/12/16 09/12/16 06:59 18:59 Intake Total 0 Output Total 0 Balance 0 - Medications Medications: Current Medications Acetaminophen (Tylenol 325mg Tab) 650 mg PO Q4H PRN PRN Reason: Headache Last Admin: 09/12/16 10:12 Dose: 650 mg Albuterol/Ipratropium (Duoneb 3 Mg/0.5 Mg (3 Ml) Ud) 3 ml IH [id number] PRN PRN Reason: Shortness of Breath Amitriptyline HCl (Elavil) 25 mg PO HS [facility] Amlodipine Besylate (Norvasc) 10 mg PO DAILY [facility] Last Admin: 09/12/16 10:12 Dose: 10 mg Aspirin (Aspirin) 325 mg PO DAILY [facility] Last Admin: 09/12/16 10:09 Dose: 325 mg Atorvastatin Calcium (Lipitor) 40 mg PO DIN [facility] Last Admin: 09/11/16 17:20 Dose: 40 mg Clonidine HCl (Catapres) 0.1 mg PO BID [facility] Last Admin: 09/12/16 10:10 Dose: Not Given Clopidogrel Bisulfate (Plavix) 75 mg PO DAILY [facility] Last Admin: 09/12/16 10:12 Dose: 75 mg Enoxaparin Sodium (Lovenox) 40 mg SC DAILY [facility] PRN Reason: Protocol Last Admin: 09/12/16 10:11 Dose: 40 mg Gabapentin (Neurontin) 100 mg PO TID [facility] PRN Reason: Protocol Last Admin: 09/12/16 10:15 Dose: 100 mg Insulin Detemir (Levemir) 34 unit SC HS [facility] Last Admin: 09/11/16 23:12 Dose: 34 unit Insulin Human Lispro (Humalog Low) 0 units SC ACHS [facility] PRN Reason: Protocol Last Admin: 09/12/16 12:25 Dose: Not Given Insulin Human Lispro (Humalog) 10 units SC AC [facility] Last Admin: 09/12/16 12:25 Dose: Not Given Lisinopril (Zestril) 40 mg PO DAILY [facility] Last Admin: 09/12/16 10:15 Dose: 40 mg Lorazepam (Ativan) 0.5 mg PO Q12 PRN; Protocol PRN Reason: Anxiety Metoprolol Tartrate (Lopressor) 75 mg PO BID [facility] Last Admin: 09/12/16 10:11 Dose: 75 mg Ondansetron HCl (Zofran Odt) 4 mg PO Q8 PRN PRN Reason: Nausea/Vomiting Last Admin: 09/08/16 22:50 Dose: 4 mg Pantoprazole Sodium (Protonix Ec Tab) 40 mg PO 0630 [facility] Last Admin: 09/12/16 10:12 Dose: 40 mg Polyethylene Glycol (Miralax) 17 gm PO DAILY [facility] Last Admin: 09/11/16 10:04 Dose: 17 gm - Labs Labs: 09/12/16 06:51 09/12/16 06:51 PT 10.6 Seconds (9.9-11.8) 03/24/17 19:25 INR 0.98 (0.93-1.08) 09/03/16 19:25 APTT 26.1 Seconds (23.7-30.8) 09/03/16 19:25 Attending/Attestation - Attestation I have personally seen and examined this patient.: Yes I have fully participated in the care of the patient.: Yes I have reviewed all pertinent clinical information, including history, physical exam and plan: Yes Notes (Text): I have seen and examined patient at bedside. This is 61 year old female with history of poorly controlled IDDM, HTN, HLD, prior CVA with residual RLE weakness who got admitted 3 weeks ago and found to have hypertensive encephalopathy. She was discharged to rehab and from there when she went home, she had generalized weakness and fell couple of times. CT head did not reveal any acute stroke. BP improved. Patient also appears depressed. Today, nurse reported mild agitation. Tylenol was given which helped. Able to follow commands and talks minimally. MRI brain showed acute infarcts in right morris radiata and small lacunar type infarct in right thalamus and both cerebellar hemisphere. 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 Continue neurochecks. Echo done but it was incomplete. As per layer off, this can be done as an outpatient. Will discuss with neurologist if anticoagulation needs to be started on georges. Cardiology consult appreciated. PT recommended [facility] vs [facility]. Dr Brunilda Jose
[2016-09-11] MEDS: Insulin Detemir 100 units/ml Vial (Levemir) SC SCH (23:12)
[2016-09-12 06:53] LABS: ADD MANUAL DIFF? NO
[2016-09-12 07:00] LABS: BASO # 0.11 K/mm3 (0.0-2.0); BASO % 1.1 % (0.0-3.0); EOS # 0.5 (0.0-0.7); EOS % 5.1 % (1.5-5.0); GRAN # 5.64 (1.4-6.5); HEMATOCRIT 35.8 % (36.0-48.0); LYMPH # 3.1 (1.2-3.4); LYMPH % 31.7 % (22.0-35.0); MEAN CORPUSCULAR HEMOGLOBIN 27.5 pg (25.0-35.0); MEAN CORPUSCULAR HGB CONC 32.7 g/dl (31.0-37.0); MEAN PLATELET VOLUME 10.4 fl (7.0-11.0); MONO # 0.5 (0.1-0.6); MONO % 5.1 % (1.0-6.0); PLATELET COUNT 341 10^3/uL (120.0-450.0); WHITE BLOOD COUNT 9.9 10^3/ul (4.5-11.0)
[2016-09-12 07:14] LABS: ALB/GLOB RATIO 1.2 (1.1-1.8); BILIRUBIN,TOTAL 0.5 mg/dL (0.2-1.3); CALCIUM 9.4 mg/dL (8.4-10.5); POTASSIUM 4.3 mmol/L (3.6-5.0); TOTAL PROTEIN 6.9 g/dL (5.8-8.3)
[2016-09-12] MEDS: Insulin Lispro (humaLOG) LOW Coverage SC SCH ×4 (07:55→22:09)
[2016-09-12] MEDS: Insulin Lispro 1 UNITS/0.01 ML SC SCH ×3 (10:11→17:37)
[2016-09-12] MEDS: Enoxaparin 40 mg Syringe SC SCH (10:11)
[2016-09-12] MEDS: Pantoprazole 40 mg EC Tab PO SCH (10:12)
--- NOTE | 2016-09-12 10:52 | CON ---
DATE: 09/12/2016 The patient is a 61-year-old female with a history of depression and new altered mental status includ ing limited communication and psychomotor retardation during this hospitalization. I reviewed Dr. Ab clemons's followup notes and recent notes on the unit. It appears that patient's Elavil was discon tinued a few days ago in the context of hypoactive delirium as well as noted psychomotor retardation. Subsequently, it does appear that patient was a lot more restless, difficult to manage and had issu es with sleeping. I met with patient at bedside and she still appears to be poorly communicative, al though she is aware of my presence and she does appear to listen to my questions. Her responses are slowed and they at times appear mumbled and soft and brief and without elaboration. The patient agre es that she is not sleeping well. However, she cannot answer questions about being in current pain o r if she has any paranoia. She is aware that it is currently 2016, believes it is August (although it is currently on 09/12). She does admit to depression and hopelessness. However, she does not want t o . She denies having wishes at this time. She cannot respond to any questions about hallu cinations. It is unclear if she understands me or if she is unable to respond. Her insight and judg ment continue to be impaired. VITAL SIGNS: Reviewed. RECENT LABORATORIES: Also reviewed by this provider. There do not appear to be any acute changes in values. MEDICATIONS: Also reviewed and patient is prescribed Ativan 0.5 t.i.d. p.r.n., of which she received 2 doses yesterday. IMPRESSION: Hypoactive delirium. Depressive disorder, not otherwise specified, rule out adjustment disorder with depression, rule out major depressive disorder, rule out depression secondary to genera l medical condition. PLAN: Due to patient's difficulty with arousal, I have decreased Ativan 0.5 mg t.i.d. to 0.5 mg q. 1 2 p.r.n. I did not discontinue it due to patient's possible catatonia and further agitation on the u nit. I will resume Elavil at 25 mg at bedtime to help patient with withdrawal from this medication a nd hopefully help with sleep. Possible consideration is Seroquel to help with sleep as well. Matt r, patient has consistently told this provider that she remains depressed and I recall that patient d id tell me that this medication was beneficial when she took it in the past. Psychiatry will continu e to follow up with patient on the unit, monitor mental status, behavior, alertness and tolerance to the medications. Zach Luke MD cc: [id number] TT: 09/12/2016 10:51:34 Confirmation # [id number] Dictation # [id number]
--- NOTE | 2016-09-12 12:47 | CP.PCM.PN ---
<RubénjessiOsvaldo patel - Last Filed: 09/12/16 12:47> Subjective - Date & Time of Evaluation Date of Evaluation: 09/12/16 Time of Evaluation: 09:35 - Subjective Subjective: PGY-1 Medicine Progress Note for Dr. Jose Patient seen and evaluated at bedside. Overnight patient was agitated and placed in chest triston by nursing for 1 hour. This morning, Patient is awake and lying on her left side. She is able to answer yes/no questions but is slow to response, mainly answering by nodding her head. She is tolerating her diet. She notes some right leg discomfort still and complaining of a headache today. She denies any fever,chills, nausea, vomiting, chest pain, or SOB. Objective - Vital Signs/Intake and Output Vital Signs (last 24 hours): Temp Pulse Resp BP Pulse Ox 97.5 F L 50 L 20 115/91 H 97 09/12/16 06:00 09/12/16 12:00 09/12/16 06:00 09/12/16 10:12 09/12/16 06:00 Intake and Output: 09/12/16 09/12/16 06:59 18:59 Intake Total 0 Output Total 0 Balance 0 - Medications Medications: Current Medications Acetaminophen (Tylenol 325mg Tab) 650 mg PO Q4H PRN PRN Reason: Headache Last Admin: 09/12/16 10:12 Dose: 650 mg Albuterol/Ipratropium (Duoneb 3 Mg/0.5 Mg (3 Ml) Ud) 3 ml IH [id number] PRN PRN Reason: Shortness of Breath Amitriptyline HCl (Elavil) 25 mg PO [facility] Amlodipine Besylate (Norvasc) 10 mg PO DAILY [facility] Last Admin: 09/12/16 10:12 Dose: 10 mg Aspirin (Aspirin) 325 mg PO DAILY [facility] Last Admin: 09/12/16 10:09 Dose: 325 mg Atorvastatin Calcium (Lipitor) 40 mg PO DIN [facility] Last Admin: 09/11/16 17:20 Dose: 40 mg Clonidine HCl (Catapres) 0.1 mg PO BID [facility] Last Admin: 09/12/16 10:10 Dose: Not Given Clopidogrel Bisulfate (Plavix) 75 mg PO DAILY [facility] Last Admin: 09/12/16 10:12 Dose: 75 mg Enoxaparin Sodium (Lovenox) 40 mg SC DAILY [facility] PRN Reason: Protocol Last Admin: 09/12/16 10:11 Dose: 40 mg Gabapentin (Neurontin) 100 mg PO TID [facility] PRN Reason: Protocol Last Admin: 09/12/16 10:15 Dose: 100 mg Insulin Detemir (Levemir) 34 unit SC HS [facility] Last Admin: 09/11/16 23:12 Dose: 34 unit Insulin Human Lispro (Humalog Low) 0 units SC ACHS [facility] PRN Reason: Protocol Last Admin: 09/12/16 12:25 Dose: Not Given Insulin Human Lispro (Humalog) 10 units SC AC [facility] Last Admin: 09/12/16 12:25 Dose: Not Given Lisinopril (Zestril) 40 mg PO DAILY [facility] Last Admin: 09/12/16 10:15 Dose: 40 mg Lorazepam (Ativan) 0.5 mg PO Q12 PRN; Protocol PRN Reason: Anxiety Metoprolol Tartrate (Lopressor) 75 mg PO BID [facility] Last Admin: 09/12/16 10:11 Dose: 75 mg Ondansetron HCl (Zofran Odt) 4 mg PO Q8 PRN PRN Reason: Nausea/Vomiting Last Admin: 09/08/16 22:50 Dose: 4 mg Pantoprazole Sodium (Protonix Ec Tab) 40 mg PO 0630 [facility] Last Admin: 09/12/16 10:12 Dose: 40 mg Polyethylene Glycol (Miralax) 17 gm PO DAILY [facility] Last Admin: 09/11/16 10:04 Dose: 17 gm - Labs Labs: 09/12/16 06:51 09/12/16 06:51 PT 10.6 Seconds (9.9-11.8) 09/03/16 19:25 INR 0.98 (0.93-1.08) 09/03/16 19:25 APTT 26.1 Seconds (23.7-30.8) 09/03/16 19:25 - Constitutional Appears: No Acute Distress - Head Exam Head Exam: ATRAUMATIC, NORMOCEPHALIC - Eye Exam Eye Exam: EOMI, Normal appearance Pupil Exam: PERRL - ENT Exam ENT Exam: Mucous Membranes Moist - Neck Exam Neck Exam: Normal Inspection - Respiratory Exam Respiratory Exam: Clear to Ausculation Bilateral, NORMAL BREATHING PATTERN - Cardiovascular Exam Cardiovascular Exam: REGULAR RHYTHM, +S1, +S2 - GI/Abdominal Exam GI & Abdominal Exam: Soft, Normal Bowel Sounds. absent: Tenderness - Extremities Exam Extremities Exam: Normal Capillary Refill - Back Exam Back Exam: absent: CVA tenderness (L), CVA tenderness (R) - Neurological Exam Neurological Exam: Alert, Awake - Psychiatric Exam Psychiatric exam: Flat Affect - Skin Skin Exam: Dry, Intact, Normal Color, Warm Assessment and Plan - Assessment and Plan (Free Text) Plan: 61yo F with PMHx of poorly controlled DM, HTN, HLD, prior CVA with residual RLE weakness and recent change in mental status [address] head negative on and 09/03, MRI positive for acute stroke on 09/09, transferred to telemetry. AMS likely due to stroke Possible delirium Ativan 1mg PO prn Neuro consult - Dr. Akhil Figueroa, recs appreciated AMS is more delirium, EEG showed baseline cognitive defects, no seizure, previous MRI reviewed, current CT negative for acute abnormality MRI 03/03/16 two acute infarcts in the left cerbral hemisphere(left frontal lobe and basal ganglia), please see full report CT 08/08/16 no acute infarct and old BL basal ganglia and morris radiata lacunar infarcts, please see full report CT 09/03/16 no evidence of acute intracranial abdnormality, please see full report MRI 09/09 -Acute infarct in the right morris radiata and small lacunar-type infarcts in the right thalamus and in both cerebellar hemispheres, please see full report Pt passed swallow eval Continue ASA 325 and Plavix 75mg Cardio consult- Dr. Han, help appreciated Echocardiogram showed : LV noral size with mild to moderate LVH, mild aortic regurg, trace mitral regurg, [see full report] patient not very cooperative f/u Carotid Duplex Venous Doppler PT/OT therapy HTN Norvasc 10 daily lopressor to 75mg BID lisinopril to 40 daily Clonidine 0.1 mg q6 prn Clonidine 0.1 mg BID will continue to adjust meds to optimize pressures Chest Pain 09/10 EKG tacycarida, possible old infarct CXR No Active disease Trop x 2 "negative" IDDM poor control Levemr 34 HS humalog 10 SC TID ISSS peripheral neuropathy, a1c 12.6 (Jul 2016) Diabetic neuropathy neurontin 100 tid History of Falls Deconditioning vs HTN encephalopathy vs orthostatic hypotention orthostatic vitals ordered physical therapy consult ordered, recommends [facility] vs [facility] Hip x-ray: no acute fracture or dislocation, see full report CT face to r/o fracture: no acute nasal bone or maxillofacial fracture, see full report CT Head: No CT evidence of acute intracranial abnormality, evidence of old lacunar infarcts, see full report Depression Psych consult, Dr. Luke, appreciate recs Psych consult, Dr. Tanner, appreciate recs will reevaluate tomorrow for possible admit to psych, pt. currently not engaging and possibly selective mute. HOLD Elavil Ativan 0.5 mg TID PRN HLD hx CVA w/ right LE residual deficit & aphasia; per family 3 weeks ago ASA, lipitor 40 Right ankle pain Xray 3 view right: no acute fracture, please see full report Constipation miralax Prophylaxis protonix lovenox zofran prn <Brunilda Jose B - Last Filed: 09/12/16 13:20> Objective - Vital Signs/Intake and Output Vital Signs (last 24 hours): Temp Pulse Resp BP Pulse Ox 98.0 F 53 L 20 106/67 97 09/12/16 12:00 09/12/16 12:00 09/12/16 12:00 09/12/16 12:00 09/12/16 06:00 Intake and Output: 09/12/16 09/12/16 06:59 18:59 Intake Total 0 Output Total 0 Balance 0 - Medications Medications: Current Medications Acetaminophen (Tylenol 325mg Tab) 650 mg PO Q4H PRN PRN Reason: Headache Last Admin: 09/12/16 10:12 Dose: 650 mg Albuterol/Ipratropium (Duoneb 3 Mg/0.5 Mg (3 Ml) Ud) 3 ml IH [id number] PRN PRN Reason: Shortness of Breath Amitriptyline HCl (Elavil) 25 mg PO HS [facility] Amlodipine Besylate (Norvasc) 10 mg PO DAILY [facility] Last Admin: 09/12/16 10:12 Dose: 10 mg Aspirin (Aspirin) 325 mg PO DAILY [facility] Last Admin: 09/12/16 10:09 Dose: 325 mg Atorvastatin Calcium (Lipitor) 40 mg PO DIN [facility] Last Admin: 09/11/16 17:20 Dose: 40 mg Clonidine HCl (Catapres) 0.1 mg PO BID [facility] Last Admin: 09/12/16 10:10 Dose: Not Given Clopidogrel Bisulfate (Plavix) 75 mg PO DAILY [facility] Last Admin: 09/12/16 10:12 Dose: 75 mg Enoxaparin Sodium (Lovenox) 40 mg SC DAILY [facility] PRN Reason: Protocol Last Admin: 09/12/16 10:11 Dose: 40 mg Gabapentin (Neurontin) 100 mg PO TID [facility] PRN Reason: Protocol Last Admin: 09/12/16 10:15 Dose: 100 mg Insulin Detemir (Levemir) 34 unit SC HS [facility] Last Admin: 09/11/16 23:12 Dose: 34 unit Insulin Human Lispro (Humalog Low) 0 units SC ACHS [facility] PRN Reason: Protocol Last Admin: 09/12/16 12:25 Dose: Not Given Insulin Human Lispro (Humalog) 10 units SC AC [facility] Last Admin: 09/12/16 12:25 Dose: Not Given Lisinopril (Zestril) 40 mg PO DAILY [facility] Last Admin: 09/12/16 10:15 Dose: 40 mg Lorazepam (Ativan) 0.5 mg PO Q12 PRN; Protocol PRN Reason: Anxiety Metoprolol Tartrate (Lopressor) 75 mg PO BID [facility] Last Admin: 09/12/16 10:11 Dose: 75 mg Ondansetron HCl (Zofran Odt) 4 mg PO Q8 PRN PRN Reason: Nausea/Vomiting Last Admin: 09/08/16 22:50 Dose: 4 mg Pantoprazole Sodium (Protonix Ec Tab) 40 mg PO 0630 [facility] Last Admin: 09/12/16 10:12 Dose: 40 mg Polyethylene Glycol (Miralax) 17 gm PO DAILY [facility] Last Admin: 09/11/16 10:04 Dose: 17 gm - Labs Labs: 09/12/16 06:51 09/12/16 06:51 PT 10.6 Seconds (9.9-11.8) 09/03/16 19:25 INR 0.98 (0.93-1.08) 09/03/16 19:25 APTT 26.1 Seconds (23.7-30.8) 09/03/16 19:25 Attending/Attestation - Attestation I have personally seen and examined this patient.: Yes I have fully participated in the care of the patient.: Yes I have reviewed all pertinent clinical information, including history, physical exam and plan: Yes Notes (Text): I have seen and examined patient at bedside. This is 61 year old female with history of poorly controlled IDDM, HTN, HLD, prior CVA with residual RLE weakness who got admitted 3 weeks ago and found to have hypertensive encephalopathy. She was discharged to rehab and from there when she went home, she had generalized weakness and fell couple of times. CT head did not reveal any acute stroke. BP improved. Patient also appears depressed. Overnight, patient was very agitated and pulled out hep lock. Yesterday, she had mild agitation which got resolved with tylenol. This morning upon questioning, patient admits to headache however denied other comlaints by answeing yes or no. Reviewed blood work. Discussed with Dr Luke. Elavil was stopped few days ago so she plan on restarting elavil at night. During the day, she again became agitated. Small dose of seroquel was ordered. Triston restraints ordered for patients safety. MRI brain showed acute infarcts in right morris radiata and small lacunar type infarct in right thalamus and both cerebellar hemisphere. 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 Continue neurochecks. Echo done but it was incomplete. As per video games storywriter, this can be done as an outpatient. Will discuss with neurologist if anticoagulation needs to be started on [place]. Cardiology consult appreciated. PT recommended [facility] vs [facility]. Dr Brunilda Jose
--- NOTE | 2016-09-12 14:12 | PN ---
DATE: 09/12/2016 SUBJECTIVE: The patient was restless last night and was given Ativan was placed in the [employer] jacket. No reported arrhythmia. She is currently sleepy. PHYSICAL EXAMINATION: VITAL SIGNS: Blood pressure 106/67, heart rate 53, temperature 98, respirations 20. HEENT: Normocephalic. NECK: No JVD. CHEST: Diminished breath sounds over the bases. HEART: S1, S2 regular. EXTREMITIES: No edema. LABORATORIES: Today's hemoglobin and hematocrit 11.7 and 35.8. White count and platelet count are w ithin normal limits. Today's SMA-7 is within normal limits except for glucose of 157 and BUN of 33. Liver enzymes are within normal limits. ASSESSMENT: 1. Recurrent cerebrovascular accident. 2. Altered mental status. 3. Unquantified aortic outflow narrowing. 4. . RECOMMENDATIONS: The case was discussed with Dr. Jose yesterday. With recurrent embolic CVA suspect ed, anticoagulation may be considered regardless of the source of emboli; however, because of the rec ent CVA, this has to be a neurologist's decision. In the meantime, continue current Lipitor, Lopress or and prophylactic subcutaneous Lovenox, Norvasc, Plavix, and Zestril. Antwan Han MD cc: [id number] TT: 09/12/2016 14:11:34 Confirmation # [id number] Dictation # [id number] mn
[2016-09-12] MEDS: POLYETHYLENE GLYCOL 3350 17 GM/Dose PACKET PO SCH (17:34)
[2016-09-12] MEDS: Enoxaparin 80 mg Syringe SC SCH ×2 (17:41→17:48)
[2016-09-12] MEDS: Insulin Detemir 100 units/ml Vial (Levemir) SC SCH (22:09)
[2016-09-13] MEDS: Enoxaparin 80 mg Syringe SC SCH ×2 (06:24→18:30)
[2016-09-13] MEDS: Pantoprazole 40 mg EC Tab PO SCH (06:24)
[2016-09-13 06:25] LABS: ADD MANUAL DIFF? NO
[2016-09-13 06:45] LABS: BASO # 0.11 K/mm3 (0.0-2.0); BASO % 1.3 % (0.0-3.0); EOS # 0.4 (0.0-0.7); GRAN # 4.35 (1.4-6.5); HEMATOCRIT 38.4 % (36.0-48.0); LYMPH # 3.3 (1.2-3.4); MEAN CELL VOLUME 84.6 fL (80.0-105.0); MEAN CORPUSCULAR HEMOGLOBIN 27.5 pg (25.0-35.0); MEAN CORPUSCULAR HGB CONC 32.6 g/dl (31.0-37.0); MEAN PLATELET VOLUME 10.4 fl (7.0-11.0); MONO # 0.3 (0.1-0.6); MONO % 3.7 % (1.0-6.0); PLATELET COUNT 334 10^3/uL (120.0-450.0); RED CELL DISTRIBUTION WIDTH 13.9 % (11.5-14.5); WHITE BLOOD COUNT 8.5 10^3/ul (4.5-11.0)
[2016-09-13 07:13] LABS: ALB/GLOB RATIO 1.3 (1.1-1.8); BILIRUBIN,TOTAL 0.4 mg/dL (0.2-1.3); CALCIUM 9.1 mg/dL (8.4-10.5); TOTAL PROTEIN 6.9 g/dL (5.8-8.3)
[2016-09-13] MEDS: Insulin Lispro 1 UNITS/0.01 ML SC SCH ×3 (08:11→18:23)
[2016-09-13] MEDS: Insulin Lispro (humaLOG) LOW Coverage SC SCH ×4 (08:12→23:12)
[2016-09-13] MEDS: POLYETHYLENE GLYCOL 3350 17 GM/Dose PACKET PO SCH (10:34)
--- NOTE | 2016-09-13 12:23 | PN ---
DATE: 09/13/2016 SUBJECTIVE: The patient is not verbalizing today. She is still in the [place] jacket. Does not appea r to be in any real distress. PHYSICAL EXAMINATION: VITAL SIGNS: Blood pressure 180/85, heart rate 79, temperature 97.9, respirations 20. HEENT: Normocephalic. NECK: No JVD. CHEST: Clear. HEART: S1, S2 regular. EXTREMITIES: No edema. LABORATORIES: Today's hemoglobin and hematocrit are 12.5 and 38.4. White count and platelet count a re within normal limits. SMA-7 is within normal limits except for glucose of 137 and BUN of 36. ASSESSMENT: 1. Recurrent cerebrovascular accident. 2. Depressive disorder, not otherwise specified according to psychiatrist. Rule out adjustment diso rder. 3. Unquantified aortic outflow tract narrowing. 4. Hypertension. RECOMMENDATIONS: Continue current clonidine, aspirin, Lipitor, Lopressor, therapeutic subcutaneous L ovenox, and Zestril. I agree with initiating Coumadin therapy. Antwan Han MD cc: [id number] TT: 09/13/2016 12:23:21 Confirmation # [id number] Dictation # [id number] mn
--- NOTE | 2016-09-13 14:26 | CP.PCM.PN ---
<Yann Prakash - Last Filed: 09/13/16 18:02> Subjective - Date & Time of Evaluation Date of Evaluation: 09/13/16 Time of Evaluation: 07:00 - Subjective Subjective: Patient seen and evaluated at bedside with attending present. She is able to answer yes/no questions by nodding her head but is slow to respond and speaks softly to some questions. A complete ROS could not be obtained due to pt. not enagaing. She has historically only answered 3-5 questions and then will not answer any more. She is tolerating her diet well. She is able to move all four extremities in the bed. She denies headache, chest pain, or SOB. Objective - Vital Signs/Intake and Output Vital Signs (last 24 hours): Temp Pulse Resp BP Pulse Ox 97.9 F 79 20 180/85 H 100 09/13/16 06:00 09/13/16 06:00 09/13/16 06:00 09/13/16 06:00 09/13/16 06:00 Intake and Output: 09/13/16 09/13/16 06:59 18:59 Intake Total 60 Output Total 0 Balance 60 - Medications Medications: Current Medications Acetaminophen (Tylenol 325mg Tab) 650 mg PO Q4H PRN PRN Reason: Headache Last Admin: 09/12/16 10:12 Dose: 650 mg Albuterol/Ipratropium (Duoneb 3 Mg/0.5 Mg (3 Ml) Ud) 3 ml IH [id number] PRN PRN Reason: Shortness of Breath Amitriptyline HCl (Elavil) 25 mg PO HS [facility] Last Admin: 09/12/16 22:09 Dose: 25 mg Amlodipine Besylate (Norvasc) 10 mg PO DAILY [facility] Last Admin: 09/13/16 10:34 Dose: Not Given Aspirin (Ecotrin) 81 mg PO DAILY [facility] Last Admin: 09/13/16 10:34 Dose: Not Given Atorvastatin Calcium (Lipitor) 40 mg PO DIN [facility] Last Admin: 09/12/16 17:34 Dose: 40 mg Clonidine HCl (Catapres) 0.1 mg PO BID [facility] Last Admin: 09/13/16 10:34 Dose: Not Given Enoxaparin Sodium (Lovenox) 70 mg SC Q12H [facility] PRN Reason: Protocol Last Admin: 09/13/16 06:24 Dose: 70 mg Gabapentin (Neurontin) 100 mg PO TID [facility] PRN Reason: Protocol Last Admin: 09/13/16 10:34 Dose: Not Given Insulin Detemir (Levemir) 34 unit SC HS [facility] Last Admin: 09/12/16 22:09 Dose: 34 unit Insulin Human Lispro (Humalog Low) 0 units SC ACHS [facility] PRN Reason: Protocol Last Admin: 09/13/16 12:00 Dose: Not Given Insulin Human Lispro (Humalog) 10 units SC AC [facility] Last Admin: 09/13/16 12:00 Dose: Not Given Lisinopril (Zestril) 40 mg PO DAILY [facility] Last Admin: 09/13/16 10:34 Dose: Not Given Lorazepam (Ativan) 0.5 mg PO Q12 PRN; Protocol PRN Reason: Anxiety Last Admin: 09/13/16 02:33 Dose: 0.5 mg Metoprolol Tartrate (Lopressor) 75 mg PO BID [facility] Last Admin: 09/13/16 10:34 Dose: Not Given Ondansetron HCl (Zofran Odt) 4 mg PO Q8 PRN PRN Reason: Nausea/Vomiting Last Admin: 09/08/16 22:50 Dose: 4 mg Pantoprazole Sodium (Protonix Ec Tab) 40 mg PO 0630 [facility] Last Admin: 09/13/16 06:24 Dose: 40 mg Polyethylene Glycol (Miralax) 17 gm PO DAILY [facility] Last Admin: 09/13/16 10:34 Dose: Not Given Warfarin Sodium (Coumadin) 5 mg PO 1800 [facility] PRN Reason: Protocol - Labs Labs: 09/13/16 05:30 09/13/16 05:30 PT 10.6 Seconds (9.9-11.8) 09/03/16 19:25 INR 0.98 (0.93-1.08) 09/03/16 19:25 APTT 26.1 Seconds (23.7-30.8) 09/03/16 19:25 - Constitutional Appears: No Acute Distress, Other (altered, not communicating) - Eye Exam Eye Exam: EOMI - ENT Exam ENT Exam: Mucous Membranes Moist - Neck Exam Neck Exam: Full ROM - Respiratory Exam Respiratory Exam: Clear to Ausculation Bilateral, NORMAL BREATHING PATTERN - Cardiovascular Exam Cardiovascular Exam: REGULAR RHYTHM, +S1, +S2. absent: RRR - GI/Abdominal Exam GI & Abdominal Exam: Soft, Normal Bowel Sounds - Extremities Exam Extremities Exam: Full ROM. absent: Joint Swelling, Pedal Edema - Neurological Exam Neurological Exam: Altered, Awake - Psychiatric Exam Psychiatric exam: Depressed Additional comments: possible expressive aphasia - Skin Skin Exam: Dry, Intact, Normal Color, Warm Assessment and Plan - Assessment and Plan (Free Text) Assessment: 61yo F with PMHx of poorly controlled DM, HTN, HLD, prior CVA with residual RLE weakness and recent change in mental status approximately [address] head negative on 08/08 and 09/03, MRI positive for acute stroke on 09/09. Pt. Plan: AMS likely due to stroke - Ativan .5mg PO prn - Neuro consult - Dr. Akhil Figueroa, recs appreciated -AMS is more delirium, EEG showed baseline cognitive defects, no seizure, previous MRI reviewed, current CT negative for acute abnormality - MRI 03/03/16 two acute infarcts in the left cerbral hemisphere(left frontal lobe and basal ganglia), please see full report - CT 08/08/16 no acute infarct and old BL basal ganglia and morris radiata lacunar infarcts, please see full report - CT 09/03/16 no evidence of acute intracranial abdnormality, please see full report - MRI 09/09 -Acute infarct in the right morris radiata and small lacunar-type infarcts in the right thalamus and in both cerebellar hemispheres, please see full report - Continue ASA 325 and Plavix 75mg - Cardio consult- Dr. Han, help appreciated - Echocardiogram showed : LV noral size with mild to moderate LVH, mild aortic regurg, trace mitral regurg, [see full report] patient not very cooperative -f/u Carotid Duplex Venous Doppler - unable to complete due to pt. moving. 3 attempts were made. -OT ordered HTN - uncontrolled - Norvasc 10 daily - Hydralazine 5mg IV q6 prn - lopressor to 75mg BID - lisinopril to 40 daily - Clonidine .1mg po bid - Systolic BP in the 130's to 170's - will continue to adjust meds to optimize pressures IDDM poor control - Levemr 34 HS - 10 humalog AC - ISSS - peripheral neuropathy, a1c 12.6 (Jul 2016) - sugars 137-175 for last 4 days - changed diet from heart healthy to diabetic/heart healthy Diabetic neuropathy - neurontin 100 tid Chest Pain 09/10 - EKG tacycarida, possible old infarct - CXR No Active disease - Trop x 2 "negative" History of Falls - Deconditioning vs HTN encephalopathy vs orthostatic hypotention - physical therapy consult ordered -PT recommends JEFFY - Hip x ray - no acute fracture or dislocation, see full report - CT face to r/o fracture - no acute nasal bone or maxillofacial fracture, see full report - CT Head -No CT evidence of acute intracranial abnormality, evidence of old lacunar infarcts, see full report Depression Psych consult, Dr. Tanner, appreciate recs -pt. currently not engaging and possibly selective mute. -Elavil 50mg po hs HLD hx CVA w/ right LE residual deficit & aphasia; per family 4 weeks ago - ASA 81mg & Lipitor 40mg Constipation - miralax Prophylaxis - protonix, lovenox, zofran prn Assessment and plan discussed with attending <Pardeep Bassett - Last Filed: 09/14/16 15:08> Objective - Vital Signs/Intake and Output Vital Signs (last 24 hours): Temp Pulse Resp BP Pulse Ox 98.2 F 91 H 20 158/84 H 98 09/14/16 06:00 09/14/16 10:42 09/14/16 06:00 09/14/16 10:42 09/14/16 06:00 Intake and Output: 09/14/16 09/14/16 06:59 18:59 Intake Total 120 Balance 120 - Medications Medications: Current Medications Acetaminophen (Tylenol 325mg Tab) 650 mg PO Q4H PRN PRN Reason: Headache Last Admin: 09/12/16 10:12 Dose: 650 mg Albuterol/Ipratropium (Duoneb 3 Mg/0.5 Mg (3 Ml) Ud) 3 ml IH [id number] PRN PRN Reason: Shortness of Breath Amitriptyline HCl (Elavil) 75 mg PO HS [facility] Amlodipine Besylate (Norvasc) 10 mg PO DAILY [facility] Last Admin: 09/14/16 10:42 Dose: 10 mg Aspirin (Ecotrin) 81 mg PO DAILY [facility] Last Admin: 09/14/16 10:42 Dose: 81 mg Atorvastatin Calcium (Lipitor) 40 mg PO DIN [facility] Last Admin: 09/13/16 17:13 Dose: 40 mg Clonidine HCl (Catapres) 0.1 mg PO BID [facility] Last Admin: 09/14/16 10:40 Dose: 0.1 mg Enoxaparin Sodium (Lovenox) 70 mg SC Q12H [facility] PRN Reason: Protocol Last Admin: 09/14/16 06:15 Dose: 70 mg Fluphenazine HCl (Prolixin) 1 mg PO BID [facility] PRN Reason: Protocol Gabapentin (Neurontin) 100 mg PO TID [facility] PRN Reason: Protocol Last Admin: 09/14/16 14:08 Dose: 100 mg Hydralazine HCl (Apresoline) 5 mg IVP Q6 PRN PRN Reason: Systolic Blood Pressure Insulin Detemir (Levemir) 34 unit SC HS [facility] Last Admin: 09/13/16 23:12 Dose: Not Given Insulin Human Lispro (Humalog Low) 0 units SC ACHS [facility] PRN Reason: Protocol Last Admin: 09/14/16 14:04 Dose: 3 units Insulin Human Lispro (Humalog) 10 units SC AC [facility] Last Admin: 09/14/16 14:02 Dose: Not Given Lisinopril (Zestril) 40 mg PO DAILY [facility] Last Admin: 09/14/16 10:46 Dose: 40 mg Lorazepam (Ativan) 0.5 mg PO Q12 PRN; Protocol PRN Reason: Anxiety Last Admin: 09/13/16 17:03 Dose: 0.5 mg Metoprolol Tartrate (Lopressor) 75 mg PO BID [facility] Last Admin: 09/14/16 10:41 Dose: 75 mg Ondansetron HCl (Zofran Odt) 4 mg PO Q8 PRN PRN Reason: Nausea/Vomiting Last Admin: 09/08/16 22:50 Dose: 4 mg Pantoprazole Sodium (Protonix Ec Tab) 40 mg PO 0630 [facility] Last Admin: 09/14/16 06:16 Dose: 40 mg Polyethylene Glycol (Miralax) 17 gm PO DAILY [facility] Last Admin: 09/14/16 10:42 Dose: 17 gm Quetiapine Fumarate (Seroquel) 12.5 mg PO BID [facility] PRN Reason: Protocol Warfarin Sodium (Coumadin) 5 mg PO 1800 [facility] PRN Reason: Protocol Last Admin: 09/13/16 17:15 Dose: 5 mg - Labs Labs: 09/14/16 07:45 09/14/16 07:45 PT 10.8 Seconds (9.9-11.8) 09/14/16 06:40 INR 1.00 (0.93-1.08) 09/14/16 06:40 APTT 29.0 Seconds (23.7-30.8) 09/14/16 06:40 Assessment and Plan - Assessment and Plan (Free Text) Assessment: Attending note; Patient seen and examined with resident. This is a 61 year old female with history of poorly controlled IDDM, HTN, HLD, prior CVA with residual RLE weakness who got admitted 3 weeks ago and found to have hypertensive encephalopathy. She was discharged to rehab and from there when she went home, she had generalized weakness and fell couple of times. CT head did not reveal any acute stroke. BP improved. MRI brain showed acute infarcts in right morris radiata and small lacunar type infarct in right thalamus and both cerebellar hemisphere. Currently patient has expressive aphasia and cognitive impairment. Agitated at times. started on Ativan when necessary. On vest [place] for patient's safety. Continue neurochecks. case discussed with neurologist in detail. Cardiology consult appreciated. Started on by mouth Coumadin. PT recommended [facility] . Case discussed with family independence case manager in detail for discharge planning. Attending/Attestation - Attestation I have personally seen and examined this patient.: Yes I have fully participated in the care of the patient.: Yes I have reviewed all pertinent clinical information, including history, physical exam and plan: Yes
--- NOTE | 2016-09-13 18:00 | PN ---
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 MRI positive for acute stroke on 09/09. Psych was consul dylan for depressive symptoms as well as delirium. The patient was seen by this justowriter operator as well as Dr. Luke was following the patient up over the weekend. The patient was resumed on Elavil. The patient was followed up today. The patient presented to be alert, reported being depressed. The patient is aware that she is in the hospital and the reasons for her to be in the hospital. The patient knows her medical condition. The patient denied feeling of hopelessness or helplessness, but reported to b e depressed. The patient is willing to increase the Elavil to 50 mg today. The patient is doing muc h better to compare with the last week. The patient is able to communicate. The patient was able to communicate her needs as well as was more verbal. VITAL SIGNS: This justowriter operator reviewed vital signs. Vital signs seem to be stable. Temperature 97.9, pu lse is 89, blood pressure 180/85, respirations 20, oxygen saturation is 100. MEDICATIONS: Reviewed. Tylenol, DuoNeb, amitriptyline will be increased to 50 mg at the nighttime, Norvasc, aspirin, Lipitor, Catapres, Lovenox, Neurontin, hydralazine, Levemir, Humalog, Zestril, Ativ an, Lopressor, Zofran, Protonix, MiraLax, and Coumadin. LABORATORY DATA: Reviewed. Most recent was from today, seems to be within normal limits. Chemistry seems to be within normal limits. MENTAL STATUS EXAMINATION: The patient was alert. As per self, the patient had episodes of re stless behavior and tried to climb off the bed, but the patient is very unsteady, but able to ambulat e with assistance, fair eye contact. Speech was minimal, but was able to communicate her needs. Moo d described as depressed. Affect was flat, but more reactive to compare with the last week. The pat ient is less sedated. Thought process seems to goal directed. Thought content: The patient denied visual, auditory, or tactile hallucinations. Denied paranoid ideations. The patient denied thoughts of harming herself or others, denied intent or plan. Insight and judgment are fair. Impulses are b farooq predictable. IMPRESSION: Rule out depression due to general medical condition. The patient had stroke, multiple medical issues. Delirium is improving. The patient is newly diagnosed with another stroke. PLAN: Continue current management. Continue current medications. Elavil will be increased to 50 mg at the nighttime for depression. The patient denied thoughts of harming himself or others low. Men rob status is improving. Delirium is improving. Physical therapy evaluation and most likely patient needs to have subacute rehab. Please see medical team notes for more detailed information. This wr iter will follow up on this patient every other day. The patient is not suicidal. The patient is no t psychotic, seems to be not in danger to self or others. Should you have any questions, give me a c all back. Flores Perdue MD cc: [id number] TT: 09/13/2016 17:59:41 Confirmation # [id number] Dictation # [id number] [email or web address]
[2016-09-13] MEDS: Insulin Detemir 100 units/ml Vial (Levemir) SC SCH (23:12)
[2016-09-14] MEDS: Enoxaparin 80 mg Syringe SC SCH ×2 (06:15→17:37)
[2016-09-14] MEDS: Pantoprazole 40 mg EC Tab PO SCH (06:16)
[2016-09-14 08:10] LABS: ADD MANUAL DIFF? NO
[2016-09-14] MEDS: Insulin Lispro (humaLOG) LOW Coverage SC SCH ×4 (08:10→22:03)
[2016-09-14] MEDS: Insulin Lispro 1 UNITS/0.01 ML SC SCH ×3 (08:10→17:46)
[2016-09-14 08:13] LABS: BASO # 0.16 K/mm3 (0.0-2.0); BASO % 1.3 % (0.0-3.0); EOS # 0.4 (0.0-0.7); EOS % 3.2 % (1.5-5.0); GRAN # 7.36 (1.4-6.5); GRAN % 61.1 % (50.0-68.0); HEMATOCRIT 36.4 % (36.0-48.0); LYMPH # 3.6 (1.2-3.4); LYMPH % 29.7 % (22.0-35.0); MEAN CELL VOLUME 83.5 fL (80.0-105.0); MEAN CORPUSCULAR HEMOGLOBIN 27.5 pg (25.0-35.0); MEAN PLATELET VOLUME 10.5 fl (7.0-11.0); MONO # 0.6 (0.1-0.6); MONO % 4.7 % (1.0-6.0); PLATELET COUNT 378 10^3/uL (120.0-450.0); RED CELL DISTRIBUTION WIDTH 13.7 % (11.5-14.5); WHITE BLOOD COUNT 12.1 10^3/ul (4.5-11.0)
[2016-09-14 09:00] LABS: ALB/GLOB RATIO 1.4 (1.1-1.8); ALKALINE PHOSPHATASE 125 U/L (38-133); ALT/SGPT 33 U/L (7-56); AST/SGOT 21 U/L (15-39); BILIRUBIN,TOTAL 0.7 mg/dL (0.2-1.3); BLOOD UREA NITROGEN 31 mg/dL (7-21); CALCIUM 9.5 mg/dL (8.4-10.5); CARBON DIOXIDE 25 mmol/L (21-33); CHLORIDE 107 mmol/L (98-107); GFR AFRICAN-AMERICAN > 60; GLUCOSE,RANDOM 177 mg/dL (70-110); POTASSIUM 4.2 mmol/L (3.6-5.0); SODIUM 144 mmol/L (132-148); TOTAL PROTEIN 7.3 g/dL (5.8-8.3)
[2016-09-14] MEDS: POLYETHYLENE GLYCOL 3350 17 GM/Dose PACKET PO SCH (10:42)
--- NOTE | 2016-09-14 12:12 | PN ---
DATE: 09/14/2016 SUBJECTIVE: The patient is still restless in bed. She denies any chest pain, but she did report rosalia e abdominal discomfort. PHYSICAL EXAMINATION: VITAL SIGNS: Blood pressure 158/84, heart rate 91, temperature 98.2, respirations 20. HEENT: Normocephalic. NECK: No JVD. CHEST: Clear. HEART: S1, S2 regular. ABDOMEN: Soft. EXTREMITIES: No edema. LABORATORIES: CBC: WBC 12.1, hemoglobin 12, hematocrit 36.4, platelet count 378,000. Today's SMA-7 is within normal limits except for glucose 177 and BUN of 31. ASSESSMENT: 1. Altered mental status. 2. Depressive disorder. 3. Recurrent cerebrovascular accident. 4. Hypertension. RECOMMENDATIONS: Continue current hydralazine 50 mg intravenously q. 6 hours p.r.n., aspirin 81 mg o nce a day daily, Elavil 50 mg at bedtime, Lipitor 40 mg once a day, twice a day, therapeutic s ubcutaneous Lovenox mg twice a day, lisinopril at 40 mg once a day. Antwan Han MD cc: [id number] TT: 09/14/2016 12:11:34 Confirmation # [id number] Dictation # [id number] [email or web address]
--- NOTE | 2016-09-14 15:37 | CP.PCM.PN ---
<Yann Prakash - Last Filed: 09/14/16 22:17> Subjective - Date & Time of Evaluation Date of Evaluation: 09/14/16 Time of Evaluation: 07:20 - Subjective Subjective: 61F with pmh of multiple strokes. Today she is able to answer yes/no questions by nodding her head but is slow to respond and speaks softly to some questions but continues to not answer questions that require anything more than a yes/no reply. She is able to follow simple commands like sit up and move your arm or leg, but it is not clear why she is not engaging with people, including her family. She does not stay focused for more than a couple of minutes and turns away to end the interaction. Again, a complete ROS could not be obtained due to pt. not communicating. She denies headache, chest pain, SOB, or abdominal pain. Objective - Vital Signs/Intake and Output Vital Signs (last 24 hours): Temp Pulse Resp BP Pulse Ox 98.2 F 91 H 20 158/84 H 98 09/14/16 06:00 09/14/16 10:42 09/14/16 06:00 09/14/16 10:42 09/14/16 06:00 Intake and Output: 09/14/16 09/14/16 06:59 18:59 Intake Total 120 Balance 120 - Medications Medications: Current Medications Acetaminophen (Tylenol 325mg Tab) 650 mg PO Q4H PRN PRN Reason: Headache Last Admin: 09/12/16 10:12 Dose: 650 mg Albuterol/Ipratropium (Duoneb 3 Mg/0.5 Mg (3 Ml) Ud) 3 ml IH [id number] PRN PRN Reason: Shortness of Breath Amitriptyline HCl (Elavil) 75 mg PO HS [facility] Amlodipine Besylate (Norvasc) 10 mg PO DAILY [facility] Last Admin: 09/14/16 10:42 Dose: 10 mg Aspirin (Ecotrin) 81 mg PO DAILY [facility] Last Admin: 09/14/16 10:42 Dose: 81 mg Atorvastatin Calcium (Lipitor) 40 mg PO DIN [facility] Last Admin: 09/13/16 17:13 Dose: 40 mg Clonidine HCl (Catapres) 0.1 mg PO BID [facility] Last Admin: 09/14/16 10:40 Dose: 0.1 mg Enoxaparin Sodium (Lovenox) 70 mg SC Q12H [facility] PRN Reason: Protocol Last Admin: 09/14/16 06:15 Dose: 70 mg Fluphenazine HCl (Prolixin) 1 mg PO BID [facility] PRN Reason: Protocol Gabapentin (Neurontin) 100 mg PO TID [facility] PRN Reason: Protocol Last Admin: 09/14/16 14:08 Dose: 100 mg Hydralazine HCl (Apresoline) 5 mg IVP Q6 PRN PRN Reason: Systolic Blood Pressure Insulin Detemir (Levemir) 34 unit SC HS [facility] Last Admin: 09/13/16 23:12 Dose: Not Given Insulin Human Lispro (Humalog Low) 0 units SC ACHS [facility] PRN Reason: Protocol Last Admin: 09/14/16 14:04 Dose: 3 units Insulin Human Lispro (Humalog) 10 units SC AC [facility] Last Admin: 09/14/16 14:02 Dose: Not Given Lisinopril (Zestril) 40 mg PO DAILY [facility] Last Admin: 09/14/16 10:46 Dose: 40 mg Lorazepam (Ativan) 0.5 mg PO Q12 PRN; Protocol PRN Reason: Anxiety Last Admin: 09/13/16 17:03 Dose: 0.5 mg Metoprolol Tartrate (Lopressor) 75 mg PO BID [facility] Last Admin: 09/14/16 10:41 Dose: 75 mg Ondansetron HCl (Zofran Odt) 4 mg PO Q8 PRN PRN Reason: Nausea/Vomiting Last Admin: 09/08/16 22:50 Dose: 4 mg Pantoprazole Sodium (Protonix Ec Tab) 40 mg PO 0630 [facility] Last Admin: 09/14/16 06:16 Dose: 40 mg Polyethylene Glycol (Miralax) 17 gm PO DAILY [facility] Last Admin: 09/14/16 10:42 Dose: 17 gm Quetiapine Fumarate (Seroquel) 12.5 mg PO BID [facility] PRN Reason: Protocol Warfarin Sodium (Coumadin) 5 mg PO 1800 [facility] PRN Reason: Protocol Last Admin: 09/13/16 17:15 Dose: 5 mg - Labs Labs: 09/14/16 07:45 09/14/16 07:45 PT 10.8 Seconds (9.9-11.8) 09/14/16 06:40 INR 1.00 (0.93-1.08) 09/14/16 06:40 APTT 29.0 Seconds (23.7-30.8) 09/14/16 06:40 - Constitutional Appears: Non-toxic, No Acute Distress, Agitated, Confused - Head Exam Head Exam: ATRAUMATIC, NORMOCEPHALIC - Eye Exam Eye Exam: EOMI - ENT Exam ENT Exam: Mucous Membranes Moist - Neck Exam Neck Exam: Full ROM. absent: Lymphadenopathy - Respiratory Exam Respiratory Exam: Clear to Ausculation Bilateral, NORMAL BREATHING PATTERN. absent: Rales, Rhonchi - Cardiovascular Exam Cardiovascular Exam: REGULAR RHYTHM, RRR, +S1, +S2. absent: JVD - GI/Abdominal Exam GI & Abdominal Exam: Soft, Normal Bowel Sounds. absent: Tenderness - Extremities Exam Extremities Exam: Full ROM, Normal Inspection. absent: Joint Swelling, Pedal Edema - Neurological Exam Neurological Exam: Awake - Psychiatric Exam Psychiatric exam: Depressed - Skin Skin Exam: Dry, Intact, Normal Color, Warm Assessment and Plan - Assessment and Plan (Free Text) Assessment: 61yo F with PMHx of poorly controlled DM, HTN, HLD, prior CVA with residual RLE weakness and recent change in mental status approximately [address] head negative on 08/08 and 09/03, MRI positive for acute stroke on 09/09. Currently, pt. not communicating appropriately. Plan: AMS likely due to stroke - Neuro consult - Dr. Akhil Figueroa, help appreciated - MRI 03/03/16 two acute infarcts in the left cerbral hemisphere(left frontal lobe and basal ganglia), please see full report - CT 08/08/16 no acute infarct and old BL basal ganglia and morris radiata lacunar infarcts, please see full report - CT 09/03/16 no evidence of acute intracranial abdnormality, please see full report - MRI 09/09/16 -Acute infarct in the right morris radiata and small lacunar-type infarcts in the right thalamus and in both cerebellar hemispheres, please see full report - Continue ASA 325 and Plavix 75mg - Cardio consult- Dr. Han, help appreciated - Echocardiogram showed : LV noral size with mild to moderate LVH, mild aortic regurg, trace mitral regurg, [see full report] patient not very cooperative -f/u Carotid Duplex Venous Doppler - unable to complete due to pt. moving. 3 attempts were made. -OT ordered 09/06 -Warfarin 5mg PO BID -INR 1.0 HTN - uncontrolled - Norvasc 10 daily - Hydralazine 5mg IV q6 prn - lopressor to 75mg BID - lisinopril to 40 daily - Clonidine .1mg po bid - Systolic BP in the 130's to 170's - will continue to adjust meds to optimize pressures IDDM poor control - Levemr 34 HS - 10 humalog AC - ISS - peripheral neuropathy, a1c 12.6 (Jul 2016) - Diet Diabetic/Heart healthy Diabetic neuropathy - neurontin 100 tid History of Falls - Deconditioning vs HTN encephalopathy vs orthostatic hypotention - physical therapy consult ordered -PT recommends [facility] - Hip x ray - no acute fracture or dislocation, see full report - CT face to r/o fracture - no acute nasal bone or maxillofacial fracture, see full report - CT Head -No CT evidence of acute intracranial abnormality, evidence of old lacunar infarcts, see full report 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 Tanner, appreciate recs -pt. currently not engaging and possibly selective mute. -Elavil 50mg po hs -Seroquel 12.5mg PO BID -Fluphenazine 1mg PO BID -Ativan .5mg PO Q12 PRN HLD hx CVA w/ right LE residual deficit & aphasia; per family 4 weeks ago - ASA 81mg & Lipitor 40mg Constipation - miralax Prophylaxis - protonix, lovenox, zofran prn Assessment and plan discussed with attending <Pardeep Bassett - Last Filed: 09/15/16 14:47> Objective - Vital Signs/Intake and Output Vital Signs (last 24 hours): Temp Pulse Resp BP Pulse Ox 97.7 F 78 19 127/69 97 09/15/16 06:00 09/15/16 06:00 09/15/16 06:00 09/15/16 10:14 09/15/16 06:00 Intake and Output: 09/15/16 09/15/16 06:59 18:59 Intake Total 0 240 Balance 0 240 - Medications Medications: Current Medications Acetaminophen (Tylenol 325mg Tab) 650 mg PO Q4H PRN PRN Reason: Headache Last Admin: 09/12/16 10:12 Dose: 650 mg Albuterol/Ipratropium (Duoneb 3 Mg/0.5 Mg (3 Ml) Ud) 3 ml IH [id number] PRN PRN Reason: Shortness of Breath Amitriptyline HCl (Elavil) 75 mg PO HS [facility] Last Admin: 09/14/16 22:03 Dose: 75 mg Amlodipine Besylate (Norvasc) 10 mg PO DAILY [facility] Last Admin: 09/15/16 10:13 Dose: 10 mg Aspirin (Ecotrin) 81 mg PO DAILY [facility] Last Admin: 09/15/16 10:13 Dose: 81 mg Atorvastatin Calcium (Lipitor) 40 mg PO DIN [facility] Last Admin: 09/14/16 17:36 Dose: 40 mg Clonidine HCl (Catapres) 0.1 mg PO BID [facility] Last Admin: 09/15/16 10:14 Dose: 0.1 mg Enoxaparin Sodium (Lovenox) 70 mg SC Q12H [facility] PRN Reason: Protocol Last Admin: 09/15/16 05:39 Dose: 70 mg Gabapentin (Neurontin) 100 mg PO TID [facility] PRN Reason: Protocol Last Admin: 09/15/16 13:57 Dose: 100 mg Hydralazine HCl (Apresoline) 5 mg IVP Q6 PRN PRN Reason: Systolic Blood Pressure Insulin Detemir (Levemir) 34 unit SC [facility] Last Admin: 09/14/16 22:03 Dose: Not Given Insulin Human Lispro (Humalog Low) 0 units SC [facility] PRN Reason: Protocol Last Admin: 09/15/16 11:46 Dose: 1 units Insulin Human Lispro (Humalog) 10 units SC AC [facility] Last Admin: 09/15/16 11:44 Dose: Not Given Lisinopril (Zestril) 40 mg PO DAILY [facility] Last Admin: 09/15/16 10:14 Dose: 40 mg Lorazepam (Ativan) 0.5 mg PO Q12 PRN; Protocol PRN Reason: Anxiety Last Admin: 09/15/16 01:11 Dose: 0.5 mg Metoprolol Tartrate (Lopressor) 75 mg PO BID [facility] Last Admin: 09/15/16 10:13 Dose: 75 mg Ondansetron HCl (Zofran Odt) 4 mg PO Q8 PRN PRN Reason: Nausea/Vomiting Last Admin: 09/08/16 22:50 Dose: 4 mg Pantoprazole Sodium (Protonix Ec Tab) 40 mg PO 0630 [facility] Last Admin: 09/15/16 05:40 Dose: 40 mg Polyethylene Glycol (Miralax) 17 gm PO DAILY [facility] Last Admin: 09/15/16 10:14 Dose: 17 gm Quetiapine Fumarate (Seroquel) 12.5 mg PO BID [facility] PRN Reason: Protocol Last Admin: 09/15/16 10:12 Dose: 12.5 mg Warfarin Sodium (Coumadin) 5 mg PO 1800 [facility] PRN Reason: Protocol Last Admin: 09/14/16 17:37 Dose: 5 mg - Labs Labs: 09/15/16 06:30 09/15/16 08:00 PT 13.9 Seconds (9.9-11.8) H 09/15/16 08:00 INR 1.29 (0.93-1.08) H 09/15/16 08:00 APTT 29.0 Seconds (23.7-30.8) 09/14/16 06:40 Assessment and Plan - Assessment and Plan (Free Text) Assessment: Attending note; Patient seen and examined with resident. This is a 61 year old female with history of poorly controlled IDDM, HTN, HLD, prior CVA with residual RLE weakness who got admitted with weakness and fall. She was discharged to rehab and from there when she went home, she had generalized weakness and fell couple of times. CT head did not reveal any acute stroke. BP improved. MRI brain showed acute infarcts in right morris radiata and small lacunar type infarct in right thalamus and both cerebellar hemisphere. Currently patient has expressive aphasia and cognitive impairment. Agitated at times. started on Ativan when necessary. On vest [place] for patient's safety. Continue neurochecks. case discussed with neurologist in detail. started on seroquel. Cardiology consult appreciated. Started on Coumadin. monitor INR closely. PT recommended [facility] . Case discussed with casework supervisor in detail for discharge planning. Attending/Attestation - Attestation I have personally seen and examined this patient.: Yes I have fully participated in the care of the patient.: Yes I have reviewed all pertinent clinical information, including history, physical exam and plan: Yes
--- NOTE | 2016-09-14 17:15 | PN ---
DATE: 09/14/2016 The patient is a 61-year-old female with multiple medical problems, newly diagnosed CVA. Th e patient has a history of major depressive disorder. The patient was started on Elavil, was increas ed to 50 mg and today the patient will be increased to 75 mg. As per medical staff, the patient has episodes of confusion and agitated behavior, restless behavior and psych consult was called back sharron garduno. This typewriter ribbon winder initiated Prolixin 1 mg twice a day, but as per neurology it would be better if patie nt will be on Seroquel 12.5 mg. We will change medication to Seroquel 12.5 mg twice a day and will m onitor closely. Besides that, the patient presented to be confused. To compare with yesterday, the patient was not able to talk today. Yesterday, the patient was able to talk and express herself. Pr esented fairly well. The patient most likely is in delirium stage. VITAL SIGNS: Seems to be stable. The patient is tachycardic, pulse is 91, blood pressure 158/84. MEDICATIONS: Reviewed. This typewriter ribbon winder will discontinue Prolixin and will start Seroquel 12.5 mg twice a day and amitriptyline will be increased to 75 mg daily. LABORATORY DATA: Reviewed. WBC is 12.1 today. The rest of the seems to be within normal limi ts. Chemistry: BUN is 31 and glucose is 177. Reports reviewed. Discussed with Dr. Bassett mental status as described above. IMPRESSION: Most likely the patient is delirious due to general medical condition. To compare with yesterday, the patient is more confused, was not able to talk and restless behavior. PLAN: Continue current management. Continue current medication. As per neurology team, Seroquel wa s initiated. This typewriter ribbon winder will monitor if patient will tolerate that well, but in the long run, the p atient needs to be on first generation of antipsychotic medication for delirium stage because of low risk of metabolic syndrome and patient has diabetes , but we will monitor closely and for a shor t period of time, the patient should be okay on the Seroquel. Meanwhile, patient needs to go to [facility] for physical therapy and further evaluation and stabilization. This typewriter ribbon winder will follow up and advise accordingly. Thank you very much for letting me participate in care of your patient. Floers Perdue MD cc: [id number] TT: 09/14/2016 17:15:08 Confirmation # [id number] Dictation # [id number]
[2016-09-14] MEDS: Insulin Detemir 100 units/ml Vial (Levemir) SC SCH (22:03)
[2016-09-15] MEDS: Enoxaparin 80 mg Syringe SC SCH ×2 (05:39→18:01)
[2016-09-15] MEDS: Pantoprazole 40 mg EC Tab PO SCH (05:40)
[2016-09-15 06:51] LABS: ADD MANUAL DIFF? NO
[2016-09-15 07:19] LABS: EOS # 0.4 (0.0-0.7); EOS % 4.2 % (1.5-5.0); GRAN # 5.23 (1.4-6.5); GRAN % 54.9 % (50.0-68.0); LYMPH # 3.3 (1.2-3.4); LYMPH % 34.6 % (22.0-35.0); MEAN CELL VOLUME 85.3 fL (80.0-105.0); MEAN CORPUSCULAR HEMOGLOBIN 27.2 pg (25.0-35.0); MEAN CORPUSCULAR HGB CONC 31.9 g/dl (31.0-37.0); MEAN PLATELET VOLUME 11.2 fl (7.0-11.0); MONO # 0.5 (0.1-0.6); MONO % 5.3 % (1.0-6.0); PLATELET COUNT 288 10^3/uL (120.0-450.0); RED CELL DISTRIBUTION WIDTH 13.9 % (11.5-14.5); WHITE BLOOD COUNT 9.5 10^3/ul (4.5-11.0)
[2016-09-15] MEDS: Insulin Lispro 1 UNITS/0.01 ML SC SCH ×3 (08:22→17:30)
[2016-09-15] MEDS: Insulin Lispro (humaLOG) LOW Coverage SC SCH ×4 (08:23→22:06)
[2016-09-15 08:40] LABS: ALB/GLOB RATIO 1.2 (1.1-1.8); BILIRUBIN,TOTAL 0.4 mg/dL (0.2-1.3); CALCIUM 9.5 mg/dL (8.4-10.5); INR 1.29 (0.93-1.08); POTASSIUM 4.5 mmol/L (3.6-5.0); TOTAL PROTEIN 6.9 g/dL (5.8-8.3)
[2016-09-15] MEDS: POLYETHYLENE GLYCOL 3350 17 GM/Dose PACKET PO SCH (10:14)
--- NOTE | 2016-09-15 12:12 | CP.PCM.PN ---
<Yann Prakash - Last Filed: 09/15/16 15:31> Subjective - Date & Time of Evaluation Date of Evaluation: 09/15/16 Time of Evaluation: 07:40 - Subjective Subjective: 61F with pmh of multiple strokes. Pt. is presenting very similarly to previous day, but appears more somnolent, possibly due to the Seroquel. She woke up in response to calling her name, and nodded yes/no to simple questions, but would not speak. She denies headache, change in vision, cough, chest pain, and abdominal pain. Objective - Vital Signs/Intake and Output Vital Signs (last 24 hours): Temp Pulse Resp BP Pulse Ox 97.7 F 78 19 127/69 97 09/15/16 06:00 09/15/16 06:00 09/15/16 06:00 09/15/16 10:14 09/15/16 06:00 Intake and Output: 09/15/16 09/15/16 06:59 18:59 Intake Total 0 Balance 0 - Medications Medications: Current Medications Acetaminophen (Tylenol 325mg Tab) 650 mg PO Q4H PRN PRN Reason: Headache Last Admin: 09/12/16 10:12 Dose: 650 mg Albuterol/Ipratropium (Duoneb 3 Mg/0.5 Mg (3 Ml) Ud) 3 ml IH [id number] PRN PRN Reason: Shortness of Breath Amitriptyline HCl (Elavil) 75 mg PO HS [facility] Last Admin: 09/14/16 22:03 Dose: 75 mg Amlodipine Besylate (Norvasc) 10 mg PO DAILY [facility] Last Admin: 09/15/16 10:13 Dose: 10 mg Aspirin (Ecotrin) 81 mg PO DAILY [facility] Last Admin: 09/15/16 10:13 Dose: 81 mg Atorvastatin Calcium (Lipitor) 40 mg PO DIN [facility] Last Admin: 09/14/16 17:36 Dose: 40 mg Clonidine HCl (Catapres) 0.1 mg PO BID [facility] Last Admin: 09/15/16 10:14 Dose: 0.1 mg Enoxaparin Sodium (Lovenox) 70 mg SC Q12H [facility] PRN Reason: Protocol Last Admin: 09/15/16 05:39 Dose: 70 mg Gabapentin (Neurontin) 100 mg PO TID [facility] PRN Reason: Protocol Last Admin: 09/15/16 10:13 Dose: 100 mg Hydralazine HCl (Apresoline) 5 mg IVP Q6 PRN PRN Reason: Systolic Blood Pressure Insulin Detemir (Levemir) 34 unit SC HS [facility] Last Admin: 09/14/16 22:03 Dose: Not Given Insulin Human Lispro (Humalog Low) 0 units SC ACHS [facility] PRN Reason: Protocol Last Admin: 09/15/16 11:46 Dose: 1 units Insulin Human Lispro (Humalog) 10 units SC AC [facility] Last Admin: 09/15/16 11:44 Dose: Not Given Lisinopril (Zestril) 40 mg PO DAILY [facility] Last Admin: 09/15/16 10:14 Dose: 40 mg Lorazepam (Ativan) 0.5 mg PO Q12 PRN; Protocol PRN Reason: Anxiety Last Admin: 09/15/16 01:11 Dose: 0.5 mg Metoprolol Tartrate (Lopressor) 75 mg PO BID [facility] Last Admin: 09/15/16 10:13 Dose: 75 mg Ondansetron HCl (Zofran Odt) 4 mg PO Q8 PRN PRN Reason: Nausea/Vomiting Last Admin: 09/08/16 22:50 Dose: 4 mg Pantoprazole Sodium (Protonix Ec Tab) 40 mg PO 0630 [facility] Last Admin: 09/15/16 05:40 Dose: 40 mg Polyethylene Glycol (Miralax) 17 gm PO DAILY [facility] Last Admin: 09/15/16 10:14 Dose: 17 gm Quetiapine Fumarate (Seroquel) 12.5 mg PO BID [facility] PRN Reason: Protocol Last Admin: 09/15/16 10:12 Dose: 12.5 mg Warfarin Sodium (Coumadin) 5 mg PO 1800 [facility] PRN Reason: Protocol Last Admin: 09/14/16 17:37 Dose: 5 mg - Labs Labs: 09/15/16 06:30 09/15/16 08:00 PT 13.9 Seconds (9.9-11.8) H 09/15/16 08:00 INR 1.29 (0.93-1.08) H 09/15/16 08:00 APTT 29.0 Seconds (23.7-30.8) 09/14/16 06:40 - Constitutional Appears: No Acute Distress - Head Exam Head Exam: ATRAUMATIC - Eye Exam Eye Exam: EOMI - ENT Exam ENT Exam: Mucous Membranes Moist - Respiratory Exam Respiratory Exam: Clear to Ausculation Bilateral, NORMAL BREATHING PATTERN. absent: Rales, Rhonchi - Cardiovascular Exam Cardiovascular Exam: REGULAR RHYTHM, +S1, +S2. absent: JVD - GI/Abdominal Exam GI & Abdominal Exam: Soft, Normal Bowel Sounds. absent: Tenderness - Extremities Exam Extremities Exam: absent: Joint Swelling, Pedal Edema - Neurological Exam Neurological Exam: Altered - Psychiatric Exam Psychiatric exam: Depressed, Flat Affect - Skin Skin Exam: Dry, Intact, Normal Color, Warm Assessment and Plan - Assessment and Plan (Free Text) Assessment: 61yo F with PMHx of poorly controlled DM, HTN, HLD, prior CVA with residual RLE weakness and recent change in mental status approximately [address] head negative on 08/08 and 09/03, MRI positive for acute stroke on 09/09. Plan: AMS likely due to stroke - Neuro consult - Dr. Akhil Figueroa, help appreciated - MRI 03/03/16 two acute infarcts in the left cerbral hemisphere(left frontal lobe and basal ganglia), please see full report - CT 08/08/16 no acute infarct and old BL basal ganglia and morris radiata lacunar infarcts, please see full report - CT 09/03/16 no evidence of acute intracranial abdnormality, please see full report - MRI 09/09/16 -Acute infarct in the right morris radiata and small lacunar-type infarcts in the right thalamus and in both cerebellar hemispheres, please see full report - Continue ASA 325 and Plavix 75mg - Cardio consult- Dr. Han, help appreciated - Echocardiogram showed : LV noral size with mild to moderate LVH, mild aortic regurg, trace mitral regurg, [see full report] patient not very cooperative -f/u Carotid Duplex Venous Doppler - unable to complete due to pt. moving. 3 attempts were made. -OT ordered 09/06 -Warfarin 5mg PO BID -INR 1.29 -discussed with family about possibility of [facility] care. HTN - uncontrolled - Norvasc 10 daily - Hydralazine 5mg IV q6 prn - lopressor to 75mg BID - lisinopril to 40 daily - Clonidine .1mg po bid - Systolic BP in the 130's to 170's - will continue to adjust meds to optimize pressures IDDM poor control - Levemr 34 HS - 10 humalog AC - ISS - peripheral neuropathy, a1c 12.6 (Jul 2016) - Diet Diabetic/Heart healthy Diabetic neuropathy - neurontin 100 tid History of Falls - Deconditioning vs HTN encephalopathy vs orthostatic hypotention - physical therapy consult ordered -PT recommends [facility] - Hip x ray - no acute fracture or dislocation, see full report - CT face to r/o fracture - no acute nasal bone or maxillofacial fracture, see full report - CT Head -No CT evidence of acute intracranial abnormality, evidence of old lacunar infarcts, see full report 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 Tanner, appreciate recs -pt. currently not engaging and possibly selective mute. -Elavil 50mg po hs -Seroquel 12.5mg PO BID -Ativan .5mg PO Q12 PRN HLD hx CVA - ASA 81mg & Lipitor 40mg Constipation - miralax Prophylaxis - protonix, lovenox, zofran prn Dispo - possible d/c to [facility] Assessment and plan discussed with attending <Pardeep Bassett - Last Filed: 09/15/16 17:37> Objective - Vital Signs/Intake and Output Vital Signs (last 24 hours): Temp Pulse Resp BP Pulse Ox 98.2 F 54 L 18 120/49 L 95 09/15/16 16:30 09/15/16 16:30 09/15/16 16:30 09/15/16 16:30 09/15/16 16:30 Intake and Output: 09/15/16 09/15/16 06:59 18:59 Intake Total 0 240 Balance 0 240 - Medications Medications: Current Medications Acetaminophen (Tylenol 325mg Tab) 650 mg PO Q4H PRN PRN Reason: Headache Last Admin: 09/12/16 10:12 Dose: 650 mg Albuterol/Ipratropium (Duoneb 3 Mg/0.5 Mg (3 Ml) Ud) 3 ml IH [id number] PRN PRN Reason: Shortness of Breath Amitriptyline HCl (Elavil) 75 mg PO HS [facility] Last Admin: 09/14/16 22:03 Dose: 75 mg Amlodipine Besylate (Norvasc) 10 mg PO DAILY [facility] Last Admin: 09/15/16 10:13 Dose: 10 mg Aspirin (Ecotrin) 81 mg PO DAILY [facility] Last Admin: 09/15/16 10:13 Dose: 81 mg Atorvastatin Calcium (Lipitor) 40 mg PO DIN [facility] Last Admin: 09/14/16 17:36 Dose: 40 mg Clonidine HCl (Catapres) 0.1 mg PO BID [facility] Last Admin: 09/15/16 10:14 Dose: 0.1 mg Enoxaparin Sodium (Lovenox) 70 mg SC Q12H [facility] PRN Reason: Protocol Last Admin: 09/15/16 05:39 Dose: 70 mg Gabapentin (Neurontin) 100 mg PO TID [facility] PRN Reason: Protocol Last Admin: 09/15/16 13:57 Dose: 100 mg Hydralazine HCl (Apresoline) 5 mg IVP Q6 PRN PRN Reason: Systolic Blood Pressure Insulin Detemir (Levemir) 34 unit SC HS [facility] Last Admin: 09/14/16 22:03 Dose: Not Given Insulin Human Lispro (Humalog Low) 0 units SC ACHS [facility] PRN Reason: Protocol Last Admin: 09/15/16 11:46 Dose: 1 units Insulin Human Lispro (Humalog) 10 units SC AC [facility] Last Admin: 09/15/16 11:44 Dose: Not Given Lisinopril (Zestril) 40 mg PO DAILY [facility] Last Admin: 09/15/16 10:14 Dose: 40 mg Lorazepam (Ativan) 0.5 mg PO Q12 PRN; Protocol PRN Reason: Anxiety Last Admin: 09/15/16 01:11 Dose: 0.5 mg Metoprolol Tartrate (Lopressor) 75 mg PO BID [facility] Last Admin: 09/15/16 10:13 Dose: 75 mg Ondansetron HCl (Zofran Odt) 4 mg PO Q8 PRN PRN Reason: Nausea/Vomiting Last Admin: 09/08/16 22:50 Dose: 4 mg Pantoprazole Sodium (Protonix Ec Tab) 40 mg PO 0630 [facility] Last Admin: 09/15/16 05:40 Dose: 40 mg Polyethylene Glycol (Miralax) 17 gm PO DAILY [facility] Last Admin: 09/15/16 10:14 Dose: 17 gm Quetiapine Fumarate (Seroquel) 12.5 mg PO BID [facility] PRN Reason: Protocol Last Admin: 09/15/16 10:12 Dose: 12.5 mg Warfarin Sodium (Coumadin) 5 mg PO 1800 [facility] PRN Reason: Protocol Last Admin: 09/14/16 17:37 Dose: 5 mg - Labs Labs: 09/15/16 06:30 09/15/16 08:00 PT 13.9 Seconds (9.9-11.8) H 09/15/16 08:00 INR 1.29 (0.93-1.08) H 09/15/16 08:00 APTT 29.0 Seconds (23.7-30.8) 09/14/16 06:40 Assessment and Plan - Assessment and Plan (Free Text) Assessment: Attending note; Patient seen and examined with resident. This is a 61 year old female with history of poorly controlled IDDM, HTN, HLD, prior CVA with residual RLE weakness who got admitted with weakness and fall. She was discharged to rehab and from there when she went home, she had generalized weakness and fell couple of times. CT head did not reveal any acute stroke. BP improved. MRI brain showed acute infarcts in right morris radiata and small lacunar type infarct in right thalamus and both cerebellar hemisphere. Currently patient has expressive aphasia and cognitive impairment. Agitated at times. started on Ativan when necessary. On vest [place] for patient's safety. case discussed with neurologist in detail. started on seroquel. elevated creatinine secondary to poor po intake. started on IVF. encourage po intake. Cardiology consult appreciated. Started on Coumadin. monitor INR closely. PT recommended [facility]. Case discussed with patient's daughter in detail about discharge planning. Case discussed with case management assistant in detail for discharge planning. Attending/Attestation - Attestation I have personally seen and examined this patient.: Yes I have fully participated in the care of the patient.: Yes I have reviewed all pertinent clinical information, including history, physical exam and plan: Yes
--- NOTE | 2016-09-15 12:17 | CP.PCM.PCO ---
Physician Communication Note - Physician Communication Note Physician Communication Note: pt was sedated, was not able to interview
--- NOTE | 2016-09-15 14:32 | PN ---
DATE: 09/15/2016 The patient is still nonverbal, appears to be in a catatonic state. However, she is not aggressive, no apparent respiratory distress. PHYSICAL EXAMINATION: VITAL SIGNS: Blood pressure 127/69, heart rate 78, temperature 97.7, respiration 19. HEENT: Normocephalic. CHEST: Clear. HEART: S1, S2 regular. EXTREMITIES: No edema. LABORATORIES: Today's INR is 1.29. BUN and creatinine are 33 and 1.6, glucose 175. White count, pl atelet count, hemoglobin and hematocrit are within normal limits. ASSESSMENT: 1. Recurrent cerebrovascular accident. 2. Schizoaffective disorder. 3. Hypertension. 4. Diabetes mellitus. RECOMMENDATIONS: Continue current clonidine 0.1 mg twice a day. Coumadin 5 mg will be administered today. Continue Elavil, Lipitor, Lopressor and Norvasc. Continue therapeutic subcutaneous Lovenox u ntil a therapeutic INR is achieved. Antwan Han MD cc: [id number] TT: 09/15/2016 14:31:25 Confirmation # [id number] Dictation # [id number] en
[2016-09-15] MEDS: Sodium Chloride 0.9% 1,000 ML IV SCH (19:00)
[2016-09-15] MEDS: Insulin Detemir 100 units/ml Vial (Levemir) SC SCH (22:06)
[2016-09-16] MEDS: Pantoprazole 40 mg EC Tab PO SCH (05:30)
[2016-09-16] MEDS: Enoxaparin 80 mg Syringe SC SCH (05:30)
[2016-09-16] MEDS: Insulin Lispro (humaLOG) LOW Coverage SC SCH ×4 (08:07→21:24)
[2016-09-16] MEDS: Sodium Chloride 0.9% 1,000 ML IV SCH ×2 (08:08→20:00)
[2016-09-16] MEDS: Insulin Lispro 1 UNITS/0.01 ML SC SCH ×3 (08:08→16:18)
--- NOTE | 2016-09-16 10:30 | CP.PCM.PN ---
<Yann Prakash - Last Filed: 09/17/16 10:12> Subjective - Date & Time of Evaluation Date of Evaluation: 09/16/16 Time of Evaluation: 09:00 - Subjective Subjective: Per nurse, pt. refused breakfast, refused morning labs, and refused multiple attempts at gaining IV access. On interview this morning, she was more responsive and was able to interact more than in the past. She was able to follow commands and interact with the TV. For the exam she was able to sit up, take deep breaths, and move her extremities on command. She was able to say the word "neck" when asked if she had any pain. She still responded yes/no to questions and the entire interaction lasted about 5min vs 1min from previous days. She denies headache, chest pain, difficulty breathing, or abdominal pain. Objective - Vital Signs/Intake and Output Vital Signs (last 24 hours): Temp Pulse Resp BP Pulse Ox 97.3 F L 53 L 18 133/69 98 09/16/16 06:00 09/16/16 06:00 09/16/16 06:00 09/16/16 06:00 09/16/16 06:00 Intake and Output: 09/16/16 09/16/16 06:59 18:59 Intake Total 420 Balance 420 - Medications Medications: Current Medications Acetaminophen (Tylenol 325mg Tab) 650 mg PO Q4H PRN PRN Reason: Headache Last Admin: 09/12/16 10:12 Dose: 650 mg Albuterol/Ipratropium (Duoneb 3 Mg/0.5 Mg (3 Ml) Ud) 3 ml IH [id number] PRN PRN Reason: Shortness of Breath Amitriptyline HCl (Elavil) 75 mg PO HS [facility] Last Admin: 09/15/16 22:09 Dose: Not Given Amlodipine Besylate (Norvasc) 10 mg PO DAILY [facility] Last Admin: 09/15/16 10:13 Dose: 10 mg Aspirin (Ecotrin) 81 mg PO DAILY [facility] Last Admin: 09/15/16 10:13 Dose: 81 mg Atorvastatin Calcium (Lipitor) 40 mg PO DIN [facility] Last Admin: 09/15/16 18:01 Dose: 40 mg Clonidine HCl (Catapres) 0.1 mg PO BID [facility] Last Admin: 09/15/16 18:00 Dose: 0.1 mg Enoxaparin Sodium (Lovenox) 70 mg SC Q12H [facility] PRN Reason: Protocol Last Admin: 09/16/16 05:30 Dose: 70 mg Gabapentin (Neurontin) 100 mg PO TID [facility] PRN Reason: Protocol Last Admin: 09/15/16 18:00 Dose: 100 mg Hydralazine HCl (Apresoline) 5 mg IVP Q6 PRN PRN Reason: Systolic Blood Pressure Sodium Chloride (Sodium Chloride 0.9%) 1,000 mls @ 75 mls/hr IV .[id number] [facility] Last Admin: 09/16/16 08:08 Dose: Not Given Insulin Detemir (Levemir) 10 unit SC HS [facility] Last Admin: 09/15/16 22:06 Dose: 10 unit Insulin Human Lispro (Humalog Low) 0 units SC ACHS [facility] PRN Reason: Protocol Last Admin: 09/16/16 08:07 Dose: 1 units Insulin Human Lispro (Humalog) 10 units SC AC [facility] Last Admin: 09/16/16 08:08 Dose: 10 units Lisinopril (Zestril) 40 mg PO DAILY [facility] Last Admin: 09/15/16 10:14 Dose: 40 mg Lorazepam (Ativan) 0.5 mg PO Q12 PRN; Protocol PRN Reason: Anxiety Last Admin: 09/15/16 20:43 Dose: 0.5 mg Metoprolol Tartrate (Lopressor) 75 mg PO BID [facility] Last Admin: 09/15/16 18:01 Dose: 75 mg Ondansetron HCl (Zofran Odt) 4 mg PO Q8 PRN PRN Reason: Nausea/Vomiting Last Admin: 09/08/16 22:50 Dose: 4 mg Pantoprazole Sodium (Protonix Ec Tab) 40 mg PO 0630 [facility] Last Admin: 09/16/16 05:30 Dose: 40 mg Polyethylene Glycol (Miralax) 17 gm PO DAILY [facility] Last Admin: 09/15/16 10:14 Dose: 17 gm Quetiapine Fumarate (Seroquel) 12.5 mg PO HS [facility] PRN Reason: Protocol Last Admin: 09/15/16 22:30 Dose: Not Given Warfarin Sodium (Coumadin) 5 mg PO 1800 [facility] PRN Reason: Protocol Last Admin: 09/15/16 18:01 Dose: 5 mg - Labs Labs: 09/15/16 06:30 04/05/17 08:00 PT 13.9 Seconds (9.9-11.8) H 09/15/16 08:00 INR 1.29 (0.93-1.08) H 09/15/16 08:00 APTT 29.0 Seconds (23.7-30.8) 09/14/16 06:40 - Constitutional Appears: No Acute Distress - Head Exam Head Exam: ATRAUMATIC, NORMOCEPHALIC - Eye Exam Eye Exam: EOMI - ENT Exam ENT Exam: Mucous Membranes Dry - Neck Exam Neck Exam: Full ROM. absent: Lymphadenopathy - Respiratory Exam Respiratory Exam: Clear to Ausculation Bilateral, NORMAL BREATHING PATTERN. absent: Rhonchi, Wheezes - Cardiovascular Exam Cardiovascular Exam: REGULAR RHYTHM, RRR, +S1, +S2. absent: JVD - GI/Abdominal Exam GI & Abdominal Exam: Soft, Normal Bowel Sounds. absent: Tenderness - Extremities Exam Extremities Exam: Full ROM. absent: Joint Swelling, Pedal Edema - Back Exam Back Exam: Full ROM. absent: CVA tenderness (L), CVA tenderness (R), paraspinal tenderness, rash noted - Neurological Exam Neurological Exam: Altered, Awake Neuro motor strength exam: Left Upper Extremity: 4, Right Upper Extremity: 5, Left Lower Extremity: 4, Right Lower Extremity: 5 - Psychiatric Exam Psychiatric exam: Depressed - Skin Skin Exam: Dry, Intact, Normal Color, Warm Assessment and Plan - Assessment and Plan (Free Text) Assessment: 61yo F with PMHx of poorly controlled DM, HTN, HLD, prior CVA with residual RLE weakness with a recent change in mental status and gait instability after being discharged from subacute rehab approximately [address] head negative on and 09/03, MRI positive for acute stroke on 09/09. Currently patient has expressive aphasia and cognitive impairment. Plan: Expressive aphasia and cognitive impairment, likely due to stroke - Pt. had stroke in late 2015, with residual left sided weakness. Pt. had another stroke, approximately in August 2016 and now has a change in her baseline per family. - Neuro consult - Dr. Akhil Figueroa, help appreciated - MRI 03/03/16 two acute infarcts in the left cerbral hemisphere(left frontal lobe and basal ganglia), please see full report - CT 08/08/16 no acute infarct and old BL basal ganglia and morris radiata lacunar infarcts, please see full report - CT 09/03/16 no evidence of acute intracranial abdnormality, please see full report - MRI 09/09/16 -Acute infarct in the right morris radiata and small lacunar-type infarcts in the right thalamus and in both cerebellar hemispheres, please see full report - Continue ASA 325 and Plavix 75mg - Cardio consult- Dr. Han, help appreciated - Echocardiogram showed : LV noral size with mild to moderate LVH, mild aortic regurg, trace mitral regurg, [see full report] patient not very cooperative -f/u Carotid Duplex Venous Doppler - unable to complete due to pt. moving. 3 attempts were made. -OT ordered 09/06 -Warfarin 5mg PO BID ON HOLD -INR 1.29 -discussed with family about possibility of [facility] care. HTN - uncontrolled - Norvasc 10 daily - Hydralazine 10mg PO q6 prn - lopressor to 75mg BID - lisinopril to 40 daily - Clonidine .1mg po bid - Systolic BP in the 130's to 170's - will continue to adjust meds to optimize pressures IDDM poor control - Levemr 34 HS - 10 humalog AC - ISS - peripheral neuropathy, a1c 12.6 (Jul 2016) - Diet Diabetic/Heart healthy Diabetic neuropathy - neurontin 100 tid History of Falls - Deconditioning vs HTN encephalopathy vs orthostatic hypotention - physical therapy consult ordered -PT recommends [facility] - Hip x ray - no acute fracture or dislocation, see full report - CT face to r/o fracture - no acute nasal bone or maxillofacial fracture, see full report - CT Head -No CT evidence of acute intracranial abnormality, evidence of old lacunar infarcts, see full report 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 Tanner, appreciate recs -pt. currently not engaging and possibly selective mute. -Elavil 50mg po hs -Seroquel 12.5mg PO BID -Ativan .5mg PO Q12 PRN HLD hx CVA - ASA 81mg & Lipitor 40mg Constipation - miralax Prophylaxis - protonix, lovenox, zofran prn Dispo - possible d/c to [facility] due to her inability to interact with people or engage in PT. - discussed with case mgmt and daughter <Pardeep Bassett - Last Filed: 09/18/16 10:30> Objective - Vital Signs/Intake and Output Vital Signs (last 24 hours): Temp Pulse Resp BP Pulse Ox 97.8 F 96 H 20 165/89 H 98 09/17/16 16:00 09/17/16 16:00 09/17/16 16:00 09/17/16 16:00 09/17/16 16:00 Intake and Output: 09/18/16 09/18/16 06:59 18:59 Intake Total 400 Balance 400 - Labs Labs: 09/17/16 10:05 09/17/16 07:30 PT 17.2 Seconds (9.9-11.8) H 09/17/16 10:05 INR 1.59 (0.93-1.08) H 09/17/16 10:05 APTT 29.0 Seconds (23.7-30.8) 09/14/16 06:40 Assessment and Plan - Assessment and Plan (Free Text) Assessment: Attending note; Patient seen and examined with resident. This is a 61 year old female with history of poorly controlled IDDM, HTN, HLD, prior CVA with residual RLE weakness who got admitted with weakness and fall. She was discharged to rehab and from there when she went home, she had generalized weakness and fell couple of times. CT head did not reveal any acute stroke. BP improved. MRI brain showed acute infarcts in right morris radiata and small lacunar type infarct in right thalamus and both cerebellar hemisphere. Currently patient has expressive aphasia and cognitive impairment. Agitated at times.on risperidal and elavil. Discussed with psychiatrist in detail. elevated creatinine secondary to poor po intake. started on IVF. encourage po intake. poor IV access. Picc line requested. Cardiology consult appreciated. Started on Coumadin. monitor INR closely.hold coumadin till INR check up. PT recommended [facility]. Case discussed with patient's daughter in detail about discharge planning. Case discussed with mattress spring encaser in detail for discharge planning. Attending/Attestation - Attestation I have personally seen and examined this patient.: Yes I have fully participated in the care of the patient.: Yes I have reviewed all pertinent clinical information, including history, physical exam and plan: Yes
[2016-09-16] MEDS: POLYETHYLENE GLYCOL 3350 17 GM/Dose PACKET PO SCH (11:20)
--- NOTE | 2016-09-16 15:20 | PN ---
DATE: 09/16/2016 SUBJECTIVE: The patient is communicating verbally in a very poor way. She may use gestures. She de nies any chest pain or shortness of breath. PHYSICAL EXAMINATION: VITAL SIGNS: Blood pressure 165/63, heart rate 90, temperature 97.3, respirations 18. HEENT: Normocephalic. NECK: No JVD. CHEST: Clear. HEART: S1, S2 regular. EXTREMITIES: No edema. LABORATORIES: Today's blood sugars are 182 and 166. ASSESSMENT: 1. Recurrent cerebrovascular accident. 2. Schizoaffective disorder. 3. Hypertension. 4. Diabetes mellitus. RECOMMENDATIONS: Continue current clonidine, aspirin, Elavil, Lipitor, Lopressor, Seroquel and Norva sc as well as Zestril. The patient will obtain INR today. Antwan Han MD cc: [id number] TT: 09/16/2016 15:19:54 Confirmation # [id number] Dictation # [id number] dn
[2016-09-16 16:15] LABS: INR 1.77 (0.93-1.08)
--- NOTE | 2016-09-16 19:17 | PN ---
DATE: 09/16/2016 Shortly the patient is a 61-year-old female with multiple medical problems, history of depre ssive disorder, newly diagnosed CVA. The patient is on the medical floor and this policy writer sales was followi ng this patient up for altered mental status as well as possible depressive symptoms. This policy writer sales clemente d impression that combination of the medical issues as well as psychiatric problems could give a pres entation which patient had. The patient has episodes of restless behavior, confusion alternating wit h catatonia. Also the patient has episodes of lucid when she is able to communicate her needs. This is description of delirium, hypoactive, hyperactive, which is related to the multiple medical issues . This policy writer sales cannot exclude that patient has underlying depression, but this policy writer sales communicated wi th this patient last time and it was 2 days ago, the patient was able to communicate her needs and sh e said that she is depressed, but she denied any thoughts of killing herself or others. VITAL SIGNS: This policy writer sales reviewed vital signs, seem to be stable. Blood pressure is better controll ed. MEDICATIONS: Reviewed. The patient is on Elavil 75 mg, which was increased 3 days ago. The patient is on benzodiazepines, Ativan 0.5 mg q. 6 hours p.r.n. The patient also was on Seroquel, which was started by neurology team, but the patient was deeply sedated on that. This policy writer sales will discontinue that and Risperdal 0.5 mg twice a day will be started. The rest of the medications up to medical tea m. LABORATORY DATA: Reviewed. The patient had spike of WBC cells yesterday, but went down today. Coag ulation within normal limits. Chemistry: BUN and creatinine is elevated. The patient refused to eat, the patient did not eat. The patient is very lethargic. This policy writer sales had prolonged conversation with Dr. Campa today, discussed treatment plan. This policy writer sales will increa se Elavil to 100 mg, Risperdal will start liquid form. MENTAL STATUS EXAMINATION: This policy writer sales was not able to wake patient up. The patient got Ativan. Th e patient has episodes of alternating restless behavior with altered mental status and catatonia and not able to express herself. IMPRESSION: As this policy writer sales described above, multiple medical issues, newly diagnosed cerebrovascular accident of underlying depression could give patient such presentation. PLAN: Continue current medications. Seroquel was discontinued. Risperdal, will start the liquid fo rm. Elavil will be increased to 100 mg. Please continue current management. We will follow up and advise accordingly. Thank you very much for letting me participate in care of your patient. Flores Perdue MD cc: [id number] TT: 09/16/2016 19:16:24 Confirmation # [id number] Dictation # [id number] jn
[2016-09-16] MEDS: Insulin Detemir 100 units/ml Vial (Levemir) SC SCH (21:47)
[2016-09-17] MEDS: Pantoprazole 40 mg EC Tab PO SCH (05:40)
[2016-09-17] MEDS: Insulin Lispro (humaLOG) LOW Coverage SC SCH ×3 (08:25→17:28)
[2016-09-17] MEDS: Insulin Lispro 1 UNITS/0.01 ML SC SCH ×3 (08:25→17:28)
[2016-09-17 08:29] LABS: CALCIUM 9.2 mg/dL (8.4-10.5); POTASSIUM 4.5 mmol/L (3.6-5.0)
[2016-09-17 10:06] LABS: ADD MANUAL DIFF? NO
[2016-09-17 10:10] LABS: BASO # 0.06 K/mm3 (0.0-2.0); BASO % 0.5 % (0.0-3.0); EOS # 0.4 (0.0-0.7); EOS % 3.8 % (1.5-5.0); GRAN # 8.39 (1.4-6.5); GRAN % 73.2 % (50.0-68.0); HEMATOCRIT 35.7 % (36.0-48.0); LYMPH # 2.1 (1.2-3.4); LYMPH % 18.3 % (22.0-35.0); MEAN CELL VOLUME 83.8 fL (80.0-105.0); MEAN CORPUSCULAR HEMOGLOBIN 27.2 pg (25.0-35.0); MEAN CORPUSCULAR HGB CONC 32.5 g/dl (31.0-37.0); MEAN PLATELET VOLUME 10.2 fl (7.0-11.0); MONO # 0.5 (0.1-0.6); MONO % 4.2 % (1.0-6.0); PLATELET COUNT 306 10^3/uL (120.0-450.0); RED CELL DISTRIBUTION WIDTH 13.8 % (11.5-14.5); WHITE BLOOD COUNT 11.5 10^3/ul (4.5-11.0)
[2016-09-17 10:20] LABS: INR 1.59 (0.93-1.08)
[2016-09-17] MEDS: POLYETHYLENE GLYCOL 3350 17 GM/Dose PACKET PO SCH (10:29)
[2016-09-17] MEDS ORDERED: Lidocaine 2% Inj (20ml) ONE (12:32)
--- NOTE | 2016-09-17 13:33 | PCM.SURG1 ---
Surgeon's Initial Post Op Note - Surgeon's Notes Surgeon: Curry Graham MD Train Brakeman: NONE Type of Anesthesia: Local Pre-Operative Diagnosis: CVA, poor venous access Operative Findings: Patent left basilic vein. Post-Operative Diagnosis: CVA, poor venous access Operation Performed: Left basilic vein single lumen picc placement, 42 cm. Tip in SVC. Specimen/Specimens Removed: NONE Estimated Blood Loss: EBL {In ML}: 2 Blood Products Given: N/A Drains Used: No Drains Post-Op Condition: Fair Date of Surgery/Procedure: 09/17/16 Time of Surgery/Procedure: 13:30
--- NOTE | 2016-09-17 15:12 | PN ---
DATE: 09/17/2016 The patient is a 61-year-old female with multiple medical problems, history of depressive di sorder, newly diagnosed with CVA. The patient was followed up by psychiatry team for altered mental status and episodes of restless and agitated behavior alternating with psychomotor retardation. The patient was seen by this publications writer yesterday. Medications were adjusted yesterday. Risperdal was initi ated yesterday. This publications writer attempted to speak to the patient today. The patient stared at this wri ter and turns her back towards this publications writer, refused to talk. Collaterals were obtained from the nurs ing staff. The patient has her moments when she will be not talking and restless behavior. At the s shannan time, when she is better she is able to communicate her needs. VITAL SIGNS: This publications writer reviewed vital signs. Temperature is 98.2, pulse is 60, blood pressure 135 /63. MEDICATIONS: Reviewed. Tylenol, DuoNeb, amitriptyline was increased to 100 mg at the nighttime, Nor vasc, aspirin, Lipitor, Catapres, Neurontin 100 mg 3 times a day, hydralazine 10 mg q.i.d., Levemir, Humalog, ____, Ativan 0.5 mg q. 12 hours as needed, Lopressor, Zofran, MiraLax, Risperdal 1 mg twice a day at the morning time and at the nighttime, Coumadin, and sodium chloride. LABORATORY DATA: Reviewed. Today WBC 11.5, hemoglobin is 11.6, hematocrit 35.7, granulocyte level 8 .39. Chemistry reviewed: carbon dioxide 20, BUN 36. Toxicology is negative for any substances. MENTAL STATUS EXAMINATION: This publications writer was not able to assess. The patient refused to speak to this publications writer, turned her back towards this publications writer. Please see above. IMPRESSION: The patient has combination of problems including multiple medical issues, newly diagnos ed cerebrovascular accident, diabetes as well as hypertension, dyslipidemia. The patient also has hi story of depressive disorder. At present moment, the patient is in delirium stage. PLAN: This publications writer increased the dose of Elavil of yesterday 4/6 to 100 mg. The patient is on Ativan as needed as well as Risperdal 1 mg twice a day scheduled. The rest is up to the medical team. Yousif escamilla is involved. guest services manager involved. The patient most likely will go to subacute rehab, [facility]. Thank you very much for letting me participate in care of your patient. Dr. Luke will follow up on this patient over the weekend. Flores Perdue MD cc: [id number] TT: 09/17/2016 15:12:24 Confirmation # [id number] Dictation # [id number] jn
--- NOTE | 2016-09-17 15:17 | VASCULAR ---
PROCEDURE: Date of procedure: 09/17/2016 Procedure: 1. Placement of a left arm PICC with ultrasound and fluoroscopic guidance, CPT 84570 2. PICC tip confirmation with spot radiograph and is in the superior vena cava Medications: 2 cc 1 percent lidocaine HISTORY: Bacteremia requiring long-term IV antibiotics TECHNIQUE: Following informed consent and procedure time-out, the patient placed supine on the interventional table and the left arm prepped and draped in the usual sterile fashion. Ultrasound showed a patent and compressible left basilic vein. After the skin was anesthetized with lidocaine, the basilic vein was accessed with micro micropuncture technique using ultrasound guidance. A guidewire was then advanced under fluoroscopic guidance into the superior vena cava. An image documenting ultrasound guidance for vascular access was permanently saved. The length of the single-lumen 5 [place] PICC was trimmed to 42 centimeters and advanced through a peel-away sheath. The PICC was position with tip of PICC confirm a spot radiograph the superior vena cava. The PICC was secured to the patient's skin. The PICC was flushed. A biopatch and sterile dressing was applied. IMPRESSION: Placement of a single lumen 4 [place] PICC via the left basilic vein trimmed to 42 cm. The tip of the PICC is confirmed with spot radiograph and is in the superior vena cava.
--- NOTE | 2016-09-17 16:25 | CP.PCM.DIS ---
<Yann Prakash - Last Filed: 09/18/16 20:21> Provider - Provider Date of Admission: 09/04/16 15:49 Attending physician: Pardeep Bassett MD Primary care physician: Samaria Hernandez MD Time Spent in preparation of Discharge (in minutes): 35 Hospital Course - Lab Results Lab Results: Most Recent Lab Values WBC 11.5 10^3/ul (4.5-11.0) H D 09/17/16 10:05 RBC 4.26 10^6/uL (3.5-6.1) 09/17/16 10:05 Hgb 11.6 gm/dL (12.0-16.0) L 09/17/16 10:05 Hct 35.7 % (36.0-48.0) L 09/17/16 10:05 MCV 83.8 fL (80.0-105.0) 09/17/16 10:05 MCH 27.2 pg (25.0-35.0) 09/17/16 10:05 MCHC 32.5 g/dl (31.0-37.0) 09/17/16 10:05 RDW 13.8 % (11.5-14.5) 09/17/16 10:05 Plt Count 306 10^3/uL (120.0-450.0) 09/17/16 10:05 MPV 10.2 fl (7.0-11.0) 09/17/16 10:05 Gran % 73.2 % (50.0-68.0) H 09/17/16 10:05 Lymph % (Auto) 18.3 % (22.0-35.0) L 09/17/16 10:05 [place] % (Auto) 4.2 % (1.0-6.0) 09/17/16 10:05 Eos % (Auto) 3.8 % (1.5-5.0) 09/17/16 10:05 Baso % (Auto) 0.5 % (0.0-3.0) 09/17/16 10:05 Gran # 8.39 (1.4-6.5) H 09/17/16 10:05 Lymph # 2.1 (1.2-3.4) 09/17/16 10:05 [place] # 0.5 (0.1-0.6) 09/17/16 10:05 Eos # 0.4 (0.0-0.7) 09/17/16 10:05 Baso # 0.06 K/mm3 (0.0-2.0) 09/17/16 10:05 PT 17.2 Seconds (9.9-11.8) H 09/17/16 10:05 INR 1.59 (0.93-1.08) H 09/17/16 10:05 APTT 29.0 Seconds (23.7-30.8) 09/14/16 06:40 Sodium 140 mmol/L (132-148) 09/17/16 07:30 Potassium 4.5 mmol/L (3.6-5.0) 09/17/16 07:30 Chloride 107 mmol/L (98-107) 09/17/16 07:30 Carbon Dioxide 20 mmol/L (21-33) L 09/17/16 07:30 Anion Gap 18 (10-20) 09/17/16 07:30 BUN 36 mg/dL (7-21) H 09/17/16 07:30 Creatinine 1.4 mg/dL (0.5-1.4) 09/17/16 07:30 Est GFR ( Amer) 46 09/17/16 07:30 Est GFR (Non-Af Amer) 38 09/17/16 07:30 POC Glucose (mg/dL) 166 mg/dL (65-110) H 09/16/16 07:06 Random Glucose 174 mg/dL (70-110) H 09/17/16 07:30 Hemoglobin A1c 10.7 % (4.2-6.5) H 09/08/16 06:30 Calcium 9.2 mg/dL (8.4-10.5) 09/17/16 07:30 Total Bilirubin 0.4 mg/dL (0.2-1.3) 09/15/16 08:00 AST 28 U/L (15-39) 09/15/16 08:00 ALT 33 U/L (7-56) 09/15/16 08:00 Alkaline Phosphatase 113 U/L (38-133) 09/15/16 08:00 Lactate Dehydrogenase 471 U/L (333-699) 03/31/17 16:15 Total Creatine Kinase 37 U/L (35-230) 09/10/16 16:15 Troponin I < 0.01 ng/mL 09/10/16 16:15 Total Protein 6.9 g/dL (5.8-8.3) 09/15/16 08:00 Albumin 3.8 g/dL (3.0-4.8) 09/15/16 08:00 Globulin 3.1 gm/dL 09/15/16 08:00 Albumin/Globulin Ratio 1.2 (1.1-1.8) 09/15/16 08:00 Triglycerides 102 mg/dL (35-160) 09/04/16 06:15 Cholesterol 160 mg/dL (130-200) 09/04/16 06:15 LDL Cholesterol Direct 70 mg/dL (0-129) 09/04/16 06:15 HDL Cholesterol 56 mg/dL (29-60) 09/04/16 06:15 TSH 3rd Generation 2.94 mIU/mL (0.46-4.68) 09/04/16 06:15 Urine Color Yellow (YELLOW) 09/03/16 21:21 Urine Appearance Clear (CLEAR) 09/03/16 21:21 Urine pH 7.0 (4.7-8.0) 09/03/16 21:21 Ur Specific [place] 1.025 (1.005-1.035) 09/03/16 21:21 Urine Protein 100 mg/dL (<30 mg/dL) H 09/03/16 21:21 Urine Glucose (UA) Negative mg/dL (NEGATIVE) 09/03/16 21:21 Urine Ketones Negative mg/dL (NEGATIVE) 09/03/16 21:21 Urine Blood Small (NEGATIVE) H 09/03/16 21:21 Urine Nitrate Negative (NEGATIVE) 09/03/16 21:21 Urine Bilirubin Negative (NEGATIVE) 09/03/16 21:21 Urine Urobilinogen 0.2 E.U./dL (<1 E.U./dL) 09/03/16 21:21 Ur Leukocyte Esterase Negative Lidia/uL (NEGATIVE) 09/03/16 21:21 Urine RBC 5 - 10 /hpf (0-2) 09/03/16 21:21 Urine WBC 0 - 2 /hpf (0-6) 09/03/16 21:21 Ur Epithelial Cells 6 - 8 /hpf (0-5) 09/03/16 21:21 Amorphous Sediment Few 09/03/16 21:21 Urine Bacteria Many (NEG) 09/03/16 21:21 Urine Other Uyeast 09/03/16 21:21 Salicylates < 1 mg/dL (2.0-20.0) L 09/03/16 19:25 Urine Opiates Screen Negative (NEGATIVE) 09/03/16 21:21 Urine Methadone Screen Negative (NEGATIVE) 09/03/16 21:21 Acetaminophen < 10.0 ug/ml (10.0-20.0) L 09/03/16 19:25 Ur Barbiturates Screen Negative (NEGATIVE) 09/03/16 21:21 Ur Phencyclidine Scrn Negative (NEGATIVE) 09/03/16 21:21 Ur Amphetamines Screen Negative (NEGATIVE) 09/03/16 21:21 U Benzodiazepines Scrn Negative (NEGATIVE) 09/03/16 21:21 U Oth Cocaine Metabols Negative (NEGATIVE) 09/03/16 21:21 U Cannabinoids Screen Negative (NEGATIVE) 09/03/16 21:21 - Hospital Course Hospital Course: 61 yo female with hx of a hypertension, type 2 diabetes, & stroke (02/2016) presented to the ED. Per family, approximately 3 weeks ago pt had an acute change in mental status from her baseline. She was taken from rehab to this hospital and evaluated for a stroke. CT at that time (08/08) showed no acute infarct. Pt. was then sent back to the rehab facility. The day she was discharged from the rehab facility(09/03), she was taken back to this hospital for AMS from baseline and gait changes. CT on admission showed no evidence of acute intracranial abnormality. Neruoology, Cardiology, and Psychaitry were consulted. Per family, the patient had been altered for 3 weeks. Pt. was on aspirin and plavix at that time. Her hypertension and diabetes were being managed and improved throughout her stay. MRI done on 09/08 showed acute infarct and patient was started on coumadin. Her psych meds were adjusted and the pt. showed improvement with her level of interaction with the hospital staff and her family. She was medically stable to be transferred to a termite control service representative facility and discharged. This is a brief account of her hospital stay. For more details please review her chart. - Date & Time of H&P Date of H&P: 09/17/16 Time of H&P: 13:05 Discharge Exam - Head Exam Head Exam: ATRAUMATIC, NORMOCEPHALIC - Eye Exam Eye Exam: EOMI - ENT Exam ENT Exam: Mucous Membranes Moist - Neck Exam Neck exam: Full Rom, Lymphadenopathy - Respiratory Exam Respiratory Exam: Clear to PA & Lateral, NORMAL BREATHING PATTERN, UNREMARKABLE - Cardiovascular Exam Cardiovascular Exam: REGULAR RHYTHM, +S1, +S2. absent: JVD - GI/Abdominal Exam GI & Abdominal Exam: Normal Bowel Sounds, Soft, Unremarkable. absent: Tenderness - Extremities Exam Extremities exam: full ROM - Back Exam Back exam: absent: rash noted - Neurological Exam Neurological exam: Altered - Psychiatric Exam Additional comments: Altered - Skin Skin Exam: Dry, Intact, Normal Color, Warm Discharge Plan - Follow Up Plan Condition: STABLE Disposition: TRANSF TO SNF Instructions: Ischemic Stroke (GEN) Additional Instructions: 1. Follow up with INR daily and adjust coumadin. 2. Follow up BP and FS closely. 3. heart healthy diet. 4. PICC line care. can use for blood draw and IVF as needed. Referrals: Samaria Hernandez MD [Primary Care Provider] - <Pardeep Bassett - Last Filed: 09/19/16 10:15> Provider - Provider Date of Admission: 09/04/16 15:49 Attending physician: Pardeep Bassett MD Primary care physician: Samaria Hernandez MD Time Spent in preparation of Discharge (in minutes): 35 Hospital Course - Lab Results Lab Results: Most Recent Lab Values WBC 11.5 10^3/ul (4.5-11.0) H D 09/17/16 10:05 RBC 4.26 10^6/uL (3.5-6.1) 09/17/16 10:05 Hgb 11.6 gm/dL (12.0-16.0) L 09/17/16 10:05 Hct 35.7 % (36.0-48.0) L 09/17/16 10:05 MCV 83.8 fL (80.0-105.0) 09/17/16 10:05 MCH 27.2 pg (25.0-35.0) 09/17/16 10:05 MCHC 32.5 g/dl (31.0-37.0) 09/17/16 10:05 RDW 13.8 % (11.5-14.5) 09/17/16 10:05 Plt Count 306 10^3/uL (120.0-450.0) 09/17/16 10:05 MPV 10.2 fl (7.0-11.0) 09/17/16 10:05 Gran % 73.2 % (50.0-68.0) H 09/17/16 10:05 Lymph % (Auto) 18.3 % (22.0-35.0) L 09/17/16 10:05 [place] % (Auto) 4.2 % (1.0-6.0) 09/17/16 10:05 Eos % (Auto) 3.8 % (1.5-5.0) 09/17/16 10:05 Baso % (Auto) 0.5 % (0.0-3.0) 09/17/16 10:05 Gran # 8.39 (1.4-6.5) H 09/17/16 10:05 Lymph # 2.1 (1.2-3.4) 09/17/16 10:05 [place] # 0.5 (0.1-0.6) 09/17/16 10:05 Eos # 0.4 (0.0-0.7) 09/17/16 10:05 Baso # 0.06 K/mm3 (0.0-2.0) 09/17/16 10:05 PT 17.2 Seconds (9.9-11.8) H 09/17/16 10:05 INR 1.59 (0.93-1.08) H 09/17/16 10:05 APTT 29.0 Seconds (23.7-30.8) 09/14/16 06:40 Sodium 140 mmol/L (132-148) 09/17/16 07:30 Potassium 4.5 mmol/L (3.6-5.0) 09/17/16 07:30 Chloride 107 mmol/L (98-107) 09/17/16 07:30 Carbon Dioxide 20 mmol/L (21-33) L 09/17/16 07:30 Anion Gap 18 (10-20) 09/17/16 07:30 BUN 36 mg/dL (7-21) H 09/17/16 07:30 Creatinine 1.4 mg/dL (0.5-1.4) 09/17/16 07:30 Est GFR ( Amer) 46 09/17/16 07:30 Est GFR (Non-Af Amer) 38 09/17/16 07:30 POC Glucose (mg/dL) 145 mg/dL (65-110) H 09/17/16 21:29 Random Glucose 174 mg/dL (70-110) H 09/17/16 07:30 Hemoglobin A1c 10.7 % (4.2-6.5) H 09/08/16 06:30 Calcium 9.2 mg/dL (8.4-10.5) 09/17/16 07:30 Total Bilirubin 0.4 mg/dL (0.2-1.3) 09/15/16 08:00 AST 28 U/L (15-39) 09/15/16 08:00 ALT 33 U/L (7-56) 09/15/16 08:00 Alkaline Phosphatase 113 U/L (38-133) 09/15/16 08:00 Lactate Dehydrogenase 471 U/L (333-699) 09/10/16 16:15 Total Creatine Kinase 37 U/L (35-230) 09/10/16 16:15 Troponin I < 0.01 ng/mL 09/10/16 16:15 Total Protein 6.9 g/dL (5.8-8.3) 09/15/16 08:00 Albumin 3.8 g/dL (3.0-4.8) 09/15/16 08:00 Globulin 3.1 gm/dL 09/15/16 08:00 Albumin/Globulin Ratio 1.2 (1.1-1.8) 09/15/16 08:00 Triglycerides 102 mg/dL (35-160) 09/04/16 06:15 Cholesterol 160 mg/dL (130-200) 09/04/16 06:15 LDL Cholesterol Direct 70 mg/dL (0-129) 09/04/16 06:15 HDL Cholesterol 56 mg/dL (29-60) 09/04/16 06:15 TSH 3rd Generation 2.94 mIU/mL (0.46-4.68) 09/04/16 06:15 Urine Color Yellow (YELLOW) 09/03/16 21:21 Urine Appearance Clear (CLEAR) 09/03/16 21:21 Urine pH 7.0 (4.7-8.0) 09/03/16 21:21 Ur Specific [place] 1.025 (1.005-1.035) 09/03/16 21:21 Urine Protein 100 mg/dL (<30 mg/dL) H 09/03/16 21:21 Urine Glucose (UA) Negative mg/dL (NEGATIVE) 09/03/16 21:21 Urine Ketones Negative mg/dL (NEGATIVE) 09/03/16 21:21 Urine Blood Small (NEGATIVE) H 09/03/16 21:21 Urine Nitrate Negative (NEGATIVE) 09/03/16 21:21 Urine Bilirubin Negative (NEGATIVE) 09/03/16 21:21 Urine Urobilinogen 0.2 E.U./dL (<1 E.U./dL) 09/03/16 21:21 Ur Leukocyte Esterase Negative Lidia/uL (NEGATIVE) 09/03/16 21:21 Urine RBC 5 - 10 /hpf (0-2) 09/03/16 21:21 Urine WBC 0 - 2 /hpf (0-6) 09/03/16 21:21 Ur Epithelial Cells 6 - 8 /hpf (0-5) 09/03/16 21:21 Amorphous Sediment Few 09/03/16 21:21 Urine Bacteria Many (NEG) 09/03/16 21:21 Urine Other Uyeast 09/03/16 21:21 Salicylates < 1 mg/dL (2.0-20.0) L 09/03/16 19:25 Urine Opiates Screen Negative (NEGATIVE) 09/03/16 21:21 Urine Methadone Screen Negative (NEGATIVE) 09/03/16 21:21 Acetaminophen < 10.0 ug/ml (10.0-20.0) L 09/03/16 19:25 Ur Barbiturates Screen Negative (NEGATIVE) 09/03/16 21:21 Ur Phencyclidine Scrn Negative (NEGATIVE) 09/03/16 21:21 Ur Amphetamines Screen Negative (NEGATIVE) 09/03/16 21:21 U Benzodiazepines Scrn Negative (NEGATIVE) 09/03/16 21:21 U Oth Cocaine Metabols Negative (NEGATIVE) 09/03/16 21:21 U Cannabinoids Screen Negative (NEGATIVE) 09/03/16 21:21 - Hospital Course Hospital Course: Attending note; Patient seen and examined with resident. This is a 61 year old female with history of poorly controlled IDDM, HTN, HLD, prior CVA with residual RLE weakness who got admitted with weakness and fall. She was discharged to rehab and from there when she went home, she had generalized weakness and fell couple of times. CT head did not reveal any acute stroke. BP improved. MRI brain showed acute infarcts in right morris radiata and small lacunar type infarct in right thalamus and both cerebellar hemisphere. Currently patient has expressive aphasia and cognitive impairment. Agitated at times.on risperidal and elavil. Discussed with psychiatrist in detail. elevated creatinine secondary to poor po intake. creatinine improved. Cardiology consult appreciated. Started on Coumadin. monitor INR closely.hold coumadin till INR check up. s/p picc line placement. can use if for blood draw and IVF as needed. Patient will go to [facility] today. Diagnosis; Acute CVA Diabetes Hypertension Hyperlipidemia Expressive aphasia Anxiety
[2016-09-17 19:25] VITALS: BP 165/89; PULSE 96; RESP 20; TEMP 97.8; O2SAT 98
== END 2016-09-17 22:52 | DRG 533 ==
LOC: ED 18:33 → ERH 23:58 → 2RNO 09-04 01:22 → ERH 09-04 01:35 → 2RNO 09-04 02:01 → OBSVTOIN 09-04 15:49 → 5RSO 09-05 15:16 → 2RNO 09-09 18:30 → 3RNO 09-14 20:00
PROVIDERS: ADMIT Internal Medicine; ATTEND Internal Medicine
PROC: 02HV33Z Insertion of Infusion Device into Superior Vena Cava, Percutaneous Approach (ICD-10-PCS; principal; 2016-09-17)
DX: I67.4 Hypertensive encephalopathy (principal); I63.9 Cerebral infarction, unspecified; E11.42 Type 2 diabetes mellitus with diabetic polyneuropathy; E11.65 Type 2 diabetes mellitus with hyperglycemia; I69.341 Monoplegia of lower limb following cerebral infarction affecting right dominant side; F25.9 Schizoaffective disorder, unspecified; E78.5 Hyperlipidemia, unspecified; R26.2 Difficulty in walking, not elsewhere classified; I34.0 Nonrheumatic mitral (valve) insufficiency; F43.23 Adjustment disorder with mixed anxiety and depressed mood; F94.0 Selective mutism; R47.01 Aphasia; R47.02 Dysphasia; Z79.4 Long term (current) use of insulin; F12.10 Cannabis abuse, uncomplicated; K59.00 Constipation, unspecified; M25.571 Pain in right ankle and joints of right foot; R29.6 Repeated falls; Z91.81 History of falling; Z90.49 Acquired absence of other specified parts of digestive tract; Z87.891 Personal history of nicotine dependence; Z90.710 Acquired absence of both cervix and uterus